=== PATIENT | female | born 1955 | race Caucasian/White ===

== ENCOUNTER 2024-07-22 14:41 | Emergency (ER) | payer MEDICARE, OTHER, SELFPAY ==
[2024-07-22 14:55] VITALS: BP 124/68; PULSE 100; RESP 18; TEMP 36.4; O2SAT 98
--- NOTE | 2024-07-22 15:03 | ED.SKABFB ---
HPI - Skin/Abscess/Foreign Bdy General Chief complaint: Skin/Abscess/Foreign Body Stated complaint: Skin/Abscess/Foreign Body Time Seen by Provider: 07/22/24 14:44 History of Present Illness HPI narrative: This is a 68 year old female patient who presents to [facility] with complaint of worsened rash on bilateral legs that has been more inflamed than usual and now is painful as well. Patient reports significant history of Allergy and immune system problems. 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 patient reports a history of asthma and eczema and states that her eczema rash on her lower extremities is significantly worse than usual. She notes that symptoms have worsened significantly over the past 7-10 days. She called and her primary care provider is out of the office all week. Patient denies history of diabetes. No prior records in our system. She states that when this flares up she needs a course of steroids to improve her symptoms. Usually her leg eczema will be light pink and itch. This time her symptoms on the right leg match her usual symptoms but on the left leg she now has a deep, dark red rash with localized swelling of the rash area only and areas where it wraps around the whole leg circumference. She notes the left leg is painful when she walks and it hurts to touch the skin in this location. She denies any fever or breaks in the skin. She has continued her topical treatments with steroids and other topical medications but left leg keeps getting worse. Patient reports that she had Covid 2.5 weeks ago. Related Data Home Medications ?Medication ?Instructions ?Recorded ?Confirmed ?Last Taken ?Type albuterol sulfate 2.5 mg/3 mL mg 07/22/24 Unknown History (0.083 %) solution for nebulization albuterol sulfate 90 mcg/actuation inhalation 07/22/24 Unknown History aerosol inhaler amlodipine 10 mg tablet mg 07/22/24 Unknown History baclofen 5 mg tablet mg 07/22/24 Unknown History carboxymethylcellulose sodium 1 % 1 drp EACH EYE DAILY 07/22/24 07/22/24 Unknown History eye liquid gel drops cetirizine 10 mg tablet (24Hour 10 mg PO DAILY PRN allergy symptoms 07/22/24 07/22/24 Unknown History Allergy) cholecalciferol (vitamin D3) 25 25 mcg PO DAILY 07/22/24 07/22/24 Unknown History mcg (1,000 unit) capsule clobetasol 0.05 % topical ointment 1 applic topical DAILY 07/22/24 07/22/24 Unknown History diphenhydramine HCl 25 mg capsule 50 mg PO HS 07/22/24 07/22/24 Unknown History (NightTime Sleep Aid (diphenhydramine)) epinephrine 0.3 mg/0.3 mL 07/22/24 Unknown History injection, auto-injector famotidine 20 mg tablet mg 07/22/24 Unknown History fexofenadine 180 mg tablet 180 mg PO DAILY 07/22/24 07/22/24 Unknown History (Magalys Allergy) fluoride (sodium) 1.1 % dental 1 applic dental DAILY 07/22/24 07/22/24 Unknown History paste (PreviDent 5000 Booster Plus) hydroxyzine HCl 25 mg tablet mg 07/22/24 Unknown History ipratropium bromide 21 mcg (0.03 intranasal 07/22/24 Unknown History %) nasal spray levothyroxine 100 mcg tablet mcg 07/22/24 Unknown History magnesium 500 mg tablet 15 mg PO DAILY 07/22/24 07/22/24 Unknown History montelukast 10 mg tablet mg 07/22/24 Unknown History wolarvsg-qvmz-aghh 8 mg-folic 400 1 tablet PO DAILY 07/22/24 07/22/24 Unknown History mcg-K 50 mcg-lutein 300 mcg tablet (Multivitamin Women 50 Plus) olopatadine 0.2 % eye drops 1 drp EACH EYE DAILY 07/22/24 07/22/24 Unknown History (Pataday Once Daily Relief) sertraline 100 mg tablet mg 07/22/24 Unknown History spironolactone 50 mg tablet mg 07/22/24 Unknown History tacrolimus 0.1 % topical ointment topical 07/22/24 Unknown History turmeric 400 mg capsule mg PO 07/22/24 Unknown History white petrolatum-mineral oil 56.8 1 applic EACH EYE DAILY PRN dry 07/22/24 07/22/24 Unknown History %-42.5 % eye ointment (Refresh eyes Lacri-Lube) Allergies Allergy/AdvReac Type Severity Reaction Status Date / Time aspirin Allergy Anaphylaxis Verified 07/22/24 15:10 azithromycin Allergy Anaphylaxis Verified 07/22/24 15:10 banana Allergy Anaphylaxis Verified 07/22/24 15:10 bee venom protein (honey bee) Allergy Anaphylaxis Verified 07/22/24 15:10 cat dander Allergy Anaphylaxis Verified 07/22/24 15:10 cranberry Allergy Anaphylaxis Verified 07/22/24 15:10 dog dander Allergy Anaphylaxis Verified 07/22/24 15:10 egg Allergy Anaphylaxis Verified 07/22/24 15:10 egg yolk Allergy Anaphylaxis Verified 07/22/24 15:10 Influenza Virus Vaccines Allergy Anaphylaxis Verified 07/22/24 15:10 latex Allergy Anaphylaxis Verified 07/22/24 15:10 lidocaine Allergy Anaphylaxis Verified 07/22/24 15:10 macadamia nut oil Allergy Anaphylaxis Verified 07/22/24 15:10 pistachio nut Allergy Anaphylaxis Verified 07/22/24 15:10 pseudoephedrine (From Allergy Anaphylaxis Verified 07/22/24 15:10 Sudafed) silicone Allergy Anaphylaxis Verified 07/22/24 15:10 stevioside (From Stevia) Allergy Anaphylaxis Verified 07/22/24 15:10 sulfamethoxazole (From Allergy Anaphylaxis Verified 07/22/24 15:10 Bactrim) sunflower seed Allergy Anaphylaxis Verified 07/22/24 15:10 trimethoprim (From Bactrim) Allergy Anaphylaxis Verified 07/22/24 15:10 venom-wasp Allergy Anaphylaxis Verified 07/22/24 15:10 Review of Systems Review of Systems: All systems reviewed & are unremarkable except as noted in HPI and below Exam Narrative: GENERAL: Well-appearing, obese, and in no acute distress. HEAD: Normocephalic, atraumatic. erythema of face rash ENT:? Mucous membranes moist. CHEST: Clear to auscultation.? No respiratory distress. Faint rash the top portion of her back HEART: Regular rate and rhythm. ? Normal peripheral pulses. EXTREMITIES: Normal range of motion. faint area of rash right upper arm. Light pink rash to right lower extremity splotchy in nature. This does not feel raised or rough skin to palpation. Left lower extremity with deep red/purple raised tender splotchy rash with bigger areas of confluence including a band of circumferential rash near the ankle. Negative Boob's This rash is non-blanchable (appears like vasculitis rather than eczema) SKIN: Warm dry normal color NEURO: Alert and oriented x3. PSYCH: Normal mood and affect Course Course Emergency Course: Level of Care: Express Care Visit Vital Signs Vital signs: Vital Signs Temperature 36.4 C 07/22/24 14:55 Pulse Rate 100 07/22/24 14:55 Respiratory Rate 18 07/22/24 14:55 Blood Pressure 124/68 07/22/24 14:55 Pulse Oximetry 98 07/22/24 14:55 Oxygen Delivery Room Air 07/22/24 14:55 Temperature 36.4 C 07/22/24 14:55 Pulse Rate 100 07/22/24 14:55 Respiratory Rate 18 07/22/24 14:55 Blood Pressure 124/68 07/22/24 14:55 Pulse Oximetry 98 07/22/24 14:55 Oxygen Delivery Room Air 07/22/24 14:55 MDM - Skin/Abscess/Foreign Bdy MDM Narrative Medical decision making narrative: Patient sought care at walk in clinic today because of a flair of her chronic skin condition that she reports has a diagnosis of eczema. It is flared worse on bilateral lower extremities but much more pronounced and progressed on the left lower leg. Her PCP is out of the office all week and her Medical Record Librarian is trying to get her to see a different Medical Record Librarian instead but they only take regan payments. Her Directory Carrier moved away out of the area. Patient requesting to get started on steroids. She has only had biopsy of her back and was treated for lichen sclerosis with improvement in that condition. She has never had biopsy of these areas of recurring rash on her legs, only been diagnosed as eczema based on recurrence. Today the rash on the left leg appears more consistent with vasculitis that is probably flared up more because of recent bout of Covid and her immune system responding. Either way, treatment will be steroid initiation with IM steroid in office and prescription for prednisone for 1 week. Patient instructed on follow up with PCP/Dermatology and consideration of biopsy if/when rash flares up in the future (but not now since starting steroids.) Differential Diagnosis Differential diagnosis: Likely urticaria, cellulitis, eczema, contact dermatitis and other (Vasculitis) Medical Records Attestation: I reviewed the patient's medical records. Medical records narrative: No records to review Discharge Plan Discharge Clinical Impression: Rash Patient Disposition: Home Condition: Stable Instructions: Antibiotic Form Additional Instructions: We gave you a shot of Decadron (dexamethasone) 10 mg in the office Start prednisone tomorrow for 1 week. If worsening of symptoms go to ER for further evaluation. Follow up with primary care or Dermatology/Allergy provider You may see about getting a biopsy of the left leg rash if it flares back up in the future. Once starting steroids it is not as accurate. You will probably need to do this through Dermatology. ER will not do a biopsy. Patient Language: Citizen Of [place] Prescriptions: New prednisone 20 mg tablet 60 mg PO DAILY 7 Days Qty: 21 0RF No Action albuterol sulfate 2.5 mg /3 mL (0.083 %) solution for nebulization sertraline 100 mg tablet levothyroxine 100 mcg tablet famotidine 20 mg tablet amlodipine 10 mg tablet tacrolimus 0.1 % ointment TOPICAL montelukast 10 mg tablet hydroxyzine HCl 25 mg tablet epinephrine 0.3 mg/0.3 mL auto-injector albuterol sulfate 90 mcg/actuation HFA aerosol inhaler INHALATION ipratropium bromide 21 mcg (0.03 %) spray,non-aerosol INTRANASAL spironolactone 50 mg tablet baclofen 5 mg tablet diphenhydramine HCl [NightTime Sleep Aid (diphen)] 25 mg capsule 50 mg PO HS fexofenadine [Magalys Allergy] 180 mg tablet 180 mg PO DAILY fluoride (sodium) [PreviDent 5000 Booster Plus] 1.1 % paste 1 applic dental DAILY cetirizine [24Hour Allergy] 10 mg tablet 10 mg PO DAILY PRN (Reason: allergy symptoms) olopatadine [Pataday Once Daily Relief] 0.2 % drops 1 drp EACH EYE DAILY carboxymethylcellulose sodium 1 % drops, liquid gel 1 drp EACH EYE DAILY Refresh Lacri-Lube 56.8-42.5 % ointment 1 applic EACH EYE DAILY PRN (Reason: dry eyes) Multivitamin Women 50 Plus 8 mg iron-400 mcg-50 mcg tablet 1 tablet PO DAILY magnesium 500 mg tablet 15 mg PO DAILY turmeric 400 mg capsule PO cholecalciferol (vitamin D3) 25 mcg (1,000 unit) capsule 25 mcg PO DAILY clobetasol 0.05 % ointment 1 applic topical DAILY Follow-up/Referrals: Bj,Rosaura Solomon MD [Primary Care Provider] - Time of Disposition: 15:35
--- OUTSIDE RECORDS SUMMARY | 2024-07-22 15:22 | XMS_ITS | Clinical Summary ---
Author Organization [address] Address [address] [place] [id number] Care Team Providers Care Bulwark Carpenter Name Role Phone Rosaura Lorenzo MD Primary Care Provider [phone] Allergies Active Allergy Reactions Criticality Noted Date Comments Aspirin Unknown 12/04/2023 Azithromycin Unknown 12/04/2023 Sulfamethoxazole-Trimethoprim Unknown 2023 Banana Unknown 12/04/2023 Cat Dander Unknown 12/04/2023 Cranberry+ Unknown 12/04/2023 Dog Dander Unknown 12/04/2023 Egg Unknown 12/04/2023 Influenza A (H1n1) Vac 2008 Unknown 12/04/19 24 Latex Unknown 12/04/2023 Lidocaine Unknown 12/04/2023 Macadamia Nut Oil Unknown 12/04/2023 Procaine Unknown 12/04/2023 Pistachio Nut Unknown 12/04/2023 Silicone Unknown 12/04/2023 Stevioside (Bulk) Unknown 12/04/2023 Pseudoephedrine Unknown 12/04/2023 [place] Seed Unknown 12/04/2023 Venom-Honey Bee Unknown 12/04/2023 Venom-Wasp Unknown 12/04/2023 Medications fluoride, sodium, (PreviDent 5000 Plus) 1.1 % cream APPLY 1-2 TIMES DAILY TOOTHPASTE Active hypromellose (NATURES TEARS) drops Active famotidine (PEPCID) 20 mg tablet TAKE 2 TABLETS BY MOUTH EVERY DAY NEEDED 2 Active levothyroxine (SYNTHROID) 100 mcg tablet Take 1 tablet every day by oral route. 9 Active albuterol HFA (PROVENTIL HFA,VENTOLIN HFA,PROAIR HFA) 90 mcg/actuation inhaler Inhale 2 puffs every 4 (four) hours 2 Active EPINEPHrine 0.3 mg/0.3 mL auto-injection syringe INJECT 1 PEN IN THE MUSCLE ONE TIME NEEDED Active spironolactone (ALDACTONE) 50 mg tablet Take 1 tablet (50 mg total) by mouth 2 (two) times a day Active ipratropium (ATROVENT) 21 mcg (0.03 %) nasal spray [place] 2 sprays twice a day by intranasal route. 2 Active white petrolatum-mine ral oil (Refresh P.M.) ointment at bedtime Active amLODIPine (NORVASC) 10 mg tablet Take 1 tablet (10 mg total) by mouth daily 9 Active baclofen (LIORESAL) 5 mg tablet Take 1 tablet (5 mg total) by mouth 3 (three) times a day as needed 4 Active cetirizine (ZyrTEC) 10 mg tablet 1 tablet (10 mg total) Active clobetasoL (TEMOVATE) 0.05 % ointment APPLY TOPICALLY TO RASH TWICE DAILY 9 Active diphenhydrAMINE 25 mg capsule Take 2 tablet/capsule (50 mg total) by mouth daily Active fexofenadine (TK) 180 mg tablet Take 1 tablet (180 mg total) by mouth daily 6 Active hydrOXYzine (ATARAX) 25 mg tablet Take by mouth 4 (four) times a day as needed 4 Active montelukast (SINGULAIR) 10 mg tablet Take 1 tablet (10 mg total) by mouth every evening Active olopatadine (Pataday Once Daily Relief) 0.7 % ophthalmic solution INSTILL 1 DROP INTO AFFECTED EYE(S) BY OPHTHALMIC ROUTE twice DAILY Active sertraline (ZOLOFT) 100 mg tablet Take 1.5 tablets (150 mg total) by mouth daily Active tacrolimus (PROTOPIC) 0.1 % ointment APPLY TO RASH ON BODY TWICE DAILY 9 Active Active Problems Problem Noted Date Diagnosed Date Cyst on ear 12/02/2023 Surgical History Surgery Date Site/Laterality Comments DILATION AND CURETTAGE OF UTERUS x2 OTHER SURGICAL HISTORY Laproscopic exploratory surgery Medical History Medical History Date Comments Angioedema Arthritis Dry eyes Eczema GERD (gastroesophageal reflux disease) TMJ dysfunction Hypertension Osteopenia Hiatal hernia Lichen sclerosus Gustatory rhinitis Spinal stenosis Lactose intolerance Kidney failure Bruxism Sleep apnea Family History Medical History Relation Name Comments Cancer Other Relation Name Status Comments Other Social History Tobacco Use Types Packs/Day Years Used Date Smoking Tobacco: Never Smokeless Tobacco: Never Tobacco Cessation:Counseling Given: Not Answered Comments Unknown Sex and Gender Information Value Date Recorded Sex Assigned at Not on file Legal Sex Female 7:00 PM [employer] Gender Identity Not on file Sexual Orientation Not on file Obstetrics History Last Filed Vital Signs Vital Sign Reading Time Taken Comments Blood Pressure 130/85 03/01/2019 10:36 AM [employer] Pulse 82 03/01/2019 10:36 AM [employer] Temperature 36.3 C (97.4 F) 03/01/2019 10:36 AM [employer] Respiratory Rate 18 12/04/2023 8:52 AM CDT Oxygen Saturation 95% 03/01/2019 10:36 AM [employer] Inhaled Oxygen Concentration - - Weight 108.9 kg (240 lb) 12/04/2023 8:52 AM CDT Height 166.4 cm (5' 5.5 ) 12/04/2023 8:52 AM CDT Body Mass Index 39.33 12/04/2023 8:52 AM CDT Plan of Treatment Health Maintenance Due Date Last Done Comments Colon Cancer Screening-Colonoscopy 1955 Depression Screening 1956 Fall Risk Assessment 1955 Hepatitis C Screening 1955 Hepatitis B Screening 1974 Well Visit 65+ 2021 Covid-19 Vaccine (4 - 2023-2 5 season) 2023 07/17/2021, 02/08/2021, 01/11/2021 Influenza Vaccine (#1) 2023 Osteoporosis Screening-Bone Density Scan 10/21/2024 10/21/2022 Breast Cancer Screening-Mammogram 10/23/2024 10/24/2023, 10/24/2023, 10/21/2022, Additional history exists DTaP/Tdap/Td Vaccine (4 - Td or Tdap) 04/21/2030 04/21/2020, 01/11/2010, 01/11/2010 Pneumococcal vaccine 65+ Completed 023, 07/10/2017, 12/27/2011 Zoster Vaccine Completed 12/28/2022, 10/29/2022 Procedures Procedure Name Priority Date/Time Associated Diagnosis Comments SCREENING MAMMOGRAM BILATERAL W MORALES Routine 03/01/2016 12:34 PM [employer] from Last 3 Months or Most Recently Relevant to Health Maintenance Results * Screening Mammogram Bilateral W Morales (03/01/2016 12:34 PM [employer]) Anatomical Region Laterality Modality Breast Bilateral Mammography 03/01/2016 12:3 4 PM [employer] Impressions 03/05/2016 8:40 AM [employer] BI-RAD 2 BENIGN There is no mammographic evidence of malignancy. A 1 year screening mammogram is recommended. The patient has been or will be contacted. The patient will be entered into a reminder system with a target due date of 1 year for her next screening exam. Electronically signed by: Live [email or web address]/[email or web address]:03/05/2016 08:40:07 Wash Test Checker: Danna PACE (R)(M), [facility] letter sent: Normal Exam Reading location: BI-RADS: 2 Benign [EOD] Narrative 03/05/2016 8:40 AM [employer] - MG BILATERAL DIGITAL SCREENING MAMMOGRAM 3D/2D WITH CAD WITH MEDIOLATERAL OBLIQUE CRANIOCAUDAL: 03/01/2016 The study was acquired using full field digital technology and interpreted from soft copy. Current study was also evaluated with R2 CAD. 2D digital mammographic views, as well as 3D digital tomosynthesis were performed in the CC and MLO projections. CLINICAL: Routine mammogram. Denies any problems today. No personal history of breast cancer. No family history of breast cancer. COMPARISONS: Comparison is made to exams dated: 01/05/2014 mammogram, 09/22/2013 mammogram, 07/03/2012 mammogram, and 09/16/2013 mammogram - [facility]. BREAST TISSUE: There are scattered areas of fibroglandular density. FINDINGS: There are benign vascular calcifications in both breasts. No significant masses, calcifications, or other findings are seen in either breast. There has been no significant interval change. Procedure Note Provider, MD Blessing - 08/07/2020 - MG BILATERAL DIGITAL SCREENING MAMMOGRAM 3D/2D WITH CAD WITH MEDIOLATERALOBLIQUE CRANIOCAUDAL: 03/01/2016 The study was acquired using full field digital technology and interpretedfrom soft copy. Current study was also evaluated with R2 CAD. 2D digital mammographic views, as well as 3D digital tomosynthesis were performed in the CC and MLO projections. CLINICAL: Routine mammogram. Denies any problems today. No personalhistory of breast cancer. No family history of breast cancer. COMPARISONS: Comparison is made to exams dated: 01/05/2014 mammogram,09/22/2013 mammogram, 07/03/2012 mammogram, and [facility] BREAST TISSUE: There are scattered areas of fibroglandular density. FINDINGS: There are benign vascular calcifications in both breasts. No significant masses, calcifications, or other findings are seen ineither breast. There has been no significant interval change. IMPRESSION: BI-RAD 2 BENIGN There is no mammographic evidence of malignancy. A 1 year screeningmammogram is recommended. The patient has been or will be contacted. The patient will be entered into a reminder system with a target due dateof 1 year for her next screening exam. Electronically signed by: Live [email or web address]/rubio:03/05/2016 08:40:07 Wash Test Checker: Danna PACE (R)(M), [facility] letter sent: Normal Exam Reading location: BI-RADS: 2 Benign [EOD] us Rosaura Lorenzo MD IMG MAMMO PROCEDURES Final Resul t from Last 3 Months or Most Recently Relevant to Health Maintenance Insurance [address] [place] [address] MEDICARE FOR LIFE Care Teams Bulwark Carpenter Relationship Specialty Start Date End Date Rosaura Lorenzo MD [address] [place] [address] PCP - General 12/07/18
--- OUTSIDE RECORDS SUMMARY | 2024-07-22 15:22 | XMS_ITS | Clinical Summary ---
Author Organization [facility] Address [facility] [place] [address] Care Team Providers Care Craniologist Name Role Phone Rosaura Tim MD Primary Care Provider [phone] Allergies Active Allergy Reactions Criticality Noted Date Comments Aspirin Hives Medium 01/18/2019 Azithromycin Swelling 01/18/2019 Banana Angioedema 04/11/2020 Bee Venom Unknown 11/27/2011 Isotretinoin Eyes Water & Itch 04/11/2020 Cranberry Extract Anaphylaxis High 10/17/2023 Dander Unknown 04/11/2020 Cat dander Dog Dander Unknown 12/04/2023 Dog Epithelium (Canis Lupus Familiaris) Unknown 10/17/2023 Egg Solids, Whole Unknown 12/04/2023 Eggs Anaphylaxis High 01/18/2019 Received name: Egg Dimethicone Unknown 04/11/2020 Vinyl gloves (per submitted paperwork) Honey Bee Venom Unknown Medium 04/11/2020 Influenza Vaccines Vomiting 01/18/2019 Latex Vomiting 01/18/2019 Lemon Flavoring Agent (Non-Screening) Itching 04/11/2020 Throat itching, swelling Lemon Oil Unknown 10/17/2023 Lidocaine Anaphylaxis High 01/18/2019 Macadamia Nut Oil Unknown 10/17/2023 Macadamia Nuts Hives,GI Upset 08/21/2023 Molds & Smuts Hives 04/11/2020 Mycobacterium Unknown 04/11/2020 Mycobacterium Tuberculosis (Tuberculin PPD) Procaine Vomiting 01/18/2019 Oxybutynin Other (see comment) 10/17/2023 Pistachio Nut Extract Unknown 10/17/2023 Pistachio Nuts Hives 08/21/2023 Omeprazole Unknown 04/11/2020 Ropinirole Other (see comment) 10/17/2023 Sulfamethoxazole-Trimet hoprim Unknown 04/11/2020 Shellfish-Derived Products Unknown 04/11/2020 Form submitted lists seafood Silicone Swelling 08/21/2023 Stevioside Unknown 10/17/2023 Pseudoephedrine Vomiting 04/11/2020 Moody Oil Hives 04/11/2020 Tuberculin, Ppd Unknown 10/17/2023 Wasp Venom Unknown 04/11/2020 Wasp Venom Protein Unknown 10/17/2023 Medications * This document contains information received from the source organization and may not represent a complete record from that organization. albuterol sulfate HFA 108 (90 Base) MCG/ACT inhaler INHALE 2 PUFFS BY MOUTH EVERY 4 HOURS 2 Active amLODIPine (NORVASC) 10 MG tablet Take 1 tablet (10 mg total) by mouth daily. 2 Active clobetasol (TEMOVATE) 0.05 % ointment APPLY TOPICALLY TO RASH TWICE DAILY 2 Active famotidine (PEPCID) 20 MG tablet TAKE 2 TABLETS BY MOUTH EVERY DAY NEEDED 2 Active ipratropium (ATROVENT) 0.03 % nasal spray 2 sprays 2 (two) times daily. 2 Active levothyroxine (SYNTHROID) 100 MCG tablet Take 1 tablet (100 mcg total) by mouth daily. 2 Active montelukast (SINGULAIR) 10 MG tablet Take 1 tablet (10 mg total) by mouth every evening. 2 Active ondansetron (ZOFRAN-ODT) 4 MG disintegrating tablet Take 1 tablet (4 mg total) by mouth every 8 (eight) hours as needed for Nausea. 10 tablet 2 Active chlorhexidine (PERIDEX) 0.12 % solution Use as directed 15 mLs in the mouth or throat 2 (two) times daily. Active EPINEPHrine 0.3 MG/0.3ML injection Inject 0.3 mLs (0.3 mg total) into the muscle as needed for Anaphylaxis. Active diphenhydrAMINE (BENADRYL) 25 MG capsule Take 2 capsules (50 mg total) by mouth nightly at bedtime. Active fexofenadine (TK) 180 MG tablet Take 1 tablet (180 mg total) by mouth daily. Active HYDROcodone-acetam inophen (NORCO) 5-325 MG tabletIndications: Acute Pain < 3 Day Supply Take 1 tablet by mouth every 6 (six) hours as needed for Pain. Indications: Acute Pain < 3 Day Supply 10 tablet 3 Active baclofen (LIORESAL) 5 MG tablet Take 1 tablet (5 mg total) by mouth 3 (three) times daily as needed. 4 Active cetirizine (ZYRTEC ALLERGY) 10 MG tablet Take 1 tablet every day by oral route in the morning. Active Docusate Sodium (DSS) 100 MG Cap TAKE 1 CAPSULE BY MOUTH THREE TIMES DAILY NEEDED Active hydrOXYzine (ATARAX) 25 MG tablet Take 1 tablet(s) 4 times a day by oral route as needed. 4 Active melatonin 10 MG tablet Take 1 tablet every day by oral route at bedtime. Active olopatadine (PATADAY) 0.7 % ophthalmic solution INSTILL 1 DROP INTO AFFECTED EYE(S) BY OPHTHALMIC ROUTE twice DAILY Active oxybutynin XL (DITROPAN-XL) 10 MG 24 hr tablet Take 1 tablet (10 mg total) by mouth nightly at bedtime. 3 Active potassium chloride CR (KLOR-CON M) 10 MEQ tablet Take 1 tablet (10 mEq total) by mouth daily. Active semaglutide-weight management (WEGOVY) 2.4 mg/dose injection (PEN) 0.25 mg. Active sertraline (ZOLOFT) 50 MG tablet Take 1 tablet (50 mg total) by mouth daily. Active SODIUM FLUORIDE, DENTAL GEL, (PREVIDENT) 1.1 % Gel PreviDent 5000 Plus 1.1 % cream APPLY 1-2 TIMES DAILY TOOTHPASTE Active spironolactone (ALDACTONE) 50 MG tablet Take 1 tablet (50 mg total) by mouth 2 (two) times daily. Active tacrolimus (PROTOPIC) 0.1 % ointment APPLY TO RASH ON BODY TWICE DAILY Active dextran 70-hypromellose (ARTIFICIAL TEARS) 0.1-0.3 % ophthalmic solution Active hydrocortisone 2.5 % cream APPLY THIN LAYER TOPICALLY TO THE AFFECTED AREA TWICE DAILY Active artificial tears (REFRESH P.M.) 83-15 % ophthalmic ointment nightly at bedtime. Active Active Problems Problem Noted Date Diagnosed Date Cyst on ear 12/02/2023 Swelling of limb 11/27/2023 Allergic reaction to food 10/17/2023 Obstructive sleep apnea of adult 10/15/2022 History of severe acute resp iratory syndrome coronavirus 2 (SARS-CoV-2) disease 03/21/2022 Pes anserinus bursitis of both knees 01/12/2022 Assessment & Plan (01/12/2022 8:16 PM CDT): We discussed the risks, benefits and alternatives. Patient would like to just do some exercises at first to see if that would get any better. She has tried some ice packs and exercise bike. Begin meloxicam 7.5 mg once daily Bilateral primary osteoarthritis of knee 022 Assessment & Plan (01/12/2022 8:17 PM CDT): We discussed the risks, benefits and alternatives. The only thing proven to slow the progression of osteoarthritis is weight loss. Every pound lost relieves 4 to 6 pounds of stress across the knee. We discussed unloading braces. Formal physical therapy to help with flexibility, mobility and strength. We discussed TENS units. Nonsteroidal anti-inflammatories as well as Tylenol and pain medication and their side effects. We discussed steroid versus Visco supplement injection. We discussed eventual total knee arthroplasty. Although, on x-ray arthritis is mild. Begin meloxicam 7.5 mg once daily. BMI 36.0-36.9,adult 01/12/2022 Assessment & Plan (01/12/2022 8:17 PM CDT): We discussed the adverse effects of weight on osteoarthritis of the knee. For every 1 pound loss, 4 to 6 pounds of stress is relieved from the knee. Underimmunization status 02/28/2020 Prediabetes 04/08/2018 Insomnia 03/18/2016 Disorder of teeth and supporting structures 10/23 Overview (10/17/2023): Location: None;Severity: Moderate;Progress: Stable;Added By: Rosaura Tim;Add to Current Problems: YES Location: None;Severity: Moderate;Progress: Stable;Added By: Rosaura Tim;Add to Current Problems: YES Edema of eyelid 11/13/2015 Overview (10/17/2023): Location: None;Severity: Moderate;Progress: Stable;Added By: Kaylyn Amin;Add to Current Problems: NO Angioedema 09/07/2015 Overview (10/17/2023): Location: None;Severity: Moderate;Progress: Stable;Added By: Rosaura Tim;Add to Current Problems: YES Atopic dermatitis 09/07/2015 Overview (10/17/2023): Location: None;Severity: Moderate;Progress: Stable;Added By: Rosaura Tim;Add to Current Problems: YES Pityriasis versicolor 09/07/2015 Overview (10/17/2023): Location: None;Severity: Moderate;Progress: Stable;Added By: Rosaura Tim;Add to Current Problems: YES Postmenopausal bleeding 03/01/2014 Overview (10/17/2023): Location: None;Severity: Moderate;Progress: Stable;Added By: Rosaura Tim;Add to Current Problems: YES Diaphragmatic hernia 02/09/2014 Overview (10/17/2023): Location: None;Severity: Moderate;Progress: Stable;Added By: Shannon Webster;Add to Current Problems: NO Acute bronchitis 01/06/2014 Overview (10/17/2023): Location: None;Severity: Moderate;Progress: Stable;Added By: Any Bautista;Add to Current Problems: YES Acne 12/31/2012 Overview (10/17/2023): Location: None;Severity: Moderate;Progress: Stable;Added By: Rosaura Tim;Add to Current Problems: NO Methicillin resistant Staphylococcus aureus infe ction 10/22/2012 Overview (10/17/2023): Location: None;Severity: Moderate;Progress: Stable;Added By: Sulema Ruiz;Add to Current Problems: NO Nonvenomous insect bite of multiple sites 2012 Overview (10/17/2023): Location: None;Severity: Moderate;Progress: Stable;Added By: Danna Dia;Add to Current Problems: NO Abdominal pain 09/22/2012 Overview (10/17/2023): Location: None;Severity: Moderate;Progress: Stable;Added By: Sulema Ruiz;Add to Current Problems: NO Abscess of vulva 09/22/2012 Overview (10/17/2023): Location: None;Severity: Moderate;Progress: Stable;Added By: Shannon Webster;Add to Current Problems: NO Impacted cerumen 09/22/2012 Overview (10/17/2023): Location: None;Severity: Moderate;Progress: Stable;Added By: Sulema Ruiz;Add to Current Problems: NO Subjective tinnitus 09/22/2012 Overview (10/17/2023): Location: None;Severity: Moderate;Progress: Stable;Added By: Sulema Ruiz;Add to Current Problems: NO Epidermoid cyst of skin 09/15/2012 Overview (10/17/2023): Location: None;Severity: Moderate;Progress: Stable;Added By: Rosaura Tim;Add to Current Problems: NO Localized scleroderma 09/15/2012 Overview (10/17/2023): Location: None;Severity: Moderate;Progress: Stable;Added By: Rosaura Tim;Add to Current Problems: NO Anxiety state 06/25/2012 Overview (10/17/2023): Location: None;Severity: Moderate;Progress: Stable;Added By: Rosaura Tim;Add to Current Problems: NO Atrophic vaginitis 06/25/2012 Overview (10/17/2023): Location: None;Severity: Moderate;Progress: Stable;Added By: Any Bautista;Add to Current Problems: NO General symptom 01/26/2012 Overview (10/17/2023): Location: None;Severity: Moderate;Progress: Stable;Added By: Any Bautista;Add to Current Problems: NO Location: None;Severity: Moderate;Progress: Stable;Added By: Any Bautista;Add to Current Problems: NO Allergic rhinitis due to pollen 11/27/2011 Overview (10/17/2023): Location: None;Severity: Moderate;Progress: Stable;Added By: Anne Del Angel;Add to Current Problems: NO Location: None;Severity: Moderate;Progress: Stable;Added By: Rosaura Tim;Add to Current Problems: YES Location: None;Severity: Moderate;Progress: Stable;Added By: Rosaura Tim;Add to Current Problems: YES Location: None;Severity: Moderate;Progress: Stable;Added By: Anne Del Angel;Add to Current Problems: NO Asthma ([facility]) 10/17/2011 Overview (10/17/2023): Location: None;Severity: Moderate;Progress: Stable;Added By: Rosaura Tim;Add to Current Problems: YES Benign essential hypertension 10/17/2011 Overview (10/17/2023): Location: None;Severity: Moderate;Progress: Stable;Added By: Any Bautista;Add to Current Problems: YES Location: None;Severity: Moderate;Progress: Stable;Added By: Any Bautista;Add to Current Problems: YES Gastroesophageal reflux disease without esophagi tis 10/17/2011 Overview (10/17/2023): Location: None;Severity: Moderate;Progress: Stable;Added By: Rosaura Tim;Add to Current Problems: NO Hypothyroidism 10/17/2011 Overview (10/17/2023): Location: None;Severity: Moderate;Progress: Stable;Added By: Any Bautista;Add to Current Problems: YES Urge incontinence of urine 10/17/2011 Overview (10/17/2023): Location: None;Severity: Moderate;Progress: Stable;Added By: Rosaura Tim;Add to Current Problems: NO Resolved Problems Problem Noted Date Diagnosed Date Resolved Date Encounter for screening for malignant neoplasm of colon 09/15/2014 10/20/2023 Encounters Date Type Department Care Team Description 06/07/2024 9:10 AM CDT - 06/07/2024 11:59 PM CDT Hospital Encounter [facility] [address] [place] [address] Rosaura Tim MD Discharge Disposition: Home or Self Care (Routine Discharge) 06/07/2024 Travel from Last 3 Months Immunizations Immunization Administration Dates Next Due Pneumococcal (Pneumovax 23) 12/27/2011 Pneumococcal (Prevnar 13) 07/10/2017 Pneumococcal (Prevnar 20) 10/29/2022 RSV VACCINE, UNSPECIFIED 01/25/2023 Shingrix 10/29/2022 Td (TDVAX) 01/11/2010 Tdap (Adacel) 04/21/2020 Tdap (Generic) 01/11/2010 Family History Medical History Relation Comments Alcohol Abuse Father Arthritis Father Asthma Father Cancer Father Early Father Hyperlipidemia Father Hypertension Father Vision loss Maternal Aunt Vision loss Maternal Grandmother Early Mother Heart Disease Mother Stroke Mother Breast Cancer Other Defects Sister Relation Status Comments Father Maternal Aunt Maternal Grandmother Mother Other Sister Social History Tobacco Use Types Packs/Day Years Used Date Smoking Tobacco: Former Cigarettes Q uit: 03/24/1977 Smokeless Tobacco: Never Tobacco Cessation:Counseling Given: Not Answered Alcohol Use Standard Drinks/Week Comments Never 0 (1 standard drink = 0.6 oz pur e alcohol) Comments No Sex and Gender Information Value Date Recorded Sex Assigned at Not on file Legal Sex Female 5:29 PM CDT Gender Identity Not on file Sexual Orientation Not on file Last Filed Vital Signs Vital Sign Reading Time Taken Comments Blood Pressure 140/72 01/28/2024 10:00 AM [employer] Pulse 74 01/28/2024 10:00 AM [employer] Temperature 36.1 C (97 F) 08/21/2023 1:17 PM CDT Respiratory Rate 18 08/21/2023 1:17 PM CDT Oxygen Saturation 98% 08/21/2023 1:17 PM CDT Inhaled Oxygen Concentration - - Weight 109.3 kg (241 lb) 01/28/2024 10:00 AM [employer] Height 165.1 cm (5' 5 ) 01/28/2024 10:00 AM [employer] Body Mass Index 40.1 01/28/2024 10:00 AM [employer] Plan of Treatment Upcoming Encounters Date Type Department Care Team (Late st Contact Info) Description 08/27/2024 1:30 PM CDT Office Visit [facility] [address] [place] [phone] Reed Allen MD [address] [id number] 01/26/2025 9:00 AM [employer] Office Visit [facility] [address] [place] [phone] Jose Norton MD [address] [id number] Health Maintenance Due Date Last Done Comments Colorectal Cancer Screening Colonoscopy (10 Years) 1955 Hepatitis C 1974 Annual Medicare Wellness Visit 2021 Zoster Vaccines (2 of 2) 12/24/2022 10/29/2022 COVID-19 Vaccine ( season) 2023 07/17/2021, 02/08/2021, 01/11/2021 Mammogram Screening 10/23/2025 10/24/2023, 10/21/2022, 10/19/2021, Additional history exists DTaP, Tdap and Td Vaccines (4 - Td or Tdap) 04/21/2030 04/21/2020, 01/11/2010, 01/11/2010 Dexa Scan (General) Completed 10/21/2022, 08/06/2022, 10/22/2017, Additional history exists Pneumococcal Vaccine: 50+ Years Completed 10/29/2022, 07/10/2017, 12/27/2011 RSV Immunization or 60+ Years Completed 01/25/2023 Meningococcal B Vaccine Aged Out No l onger eligible based on patient's age to complete this topic Meningococcal Vaccine Aged Out No rafaela garrett eligible based on patient's age to complete this topic RSV Immunizations Under 20 Months Aged Out No longer eligible based on patient's age to complete this topic Procedures Procedure Name Priority Date/Time Associated Diagnosis Comments CBC W/DIFF AUTOMATED Routine 06/07/2024 9:23 AM CDT Pre-diabetes BASIC METABOLIC PANEL Routine 06/07/2024 9:23 AM CDT Pre-diabetes MG SCREENING W SILVIA MANUELA DIGI Routine 10/24/2023 10:39 AM CDT Visit for screening mammogram BONE DENSITY/DEXA Routine 10/21/2022 1:2 3 PM CDT Postmenopausal state from Last 3 Months or Most Recently Relevant to Health Maintenance Results * (ABNORMAL) BASIC METABOLIC PANEL (06/07/2024 9:23 AM CDT) GLUCOSE 117(H) 70 - 99 MG/DL 06/07/2024 10:13 AM CDT [facility] BUN 23(H) 7 - 18 MG/DL 06/07/2024 10:13 AM CDT [facility] CREATININE S/P/B 0.97 0.55 - 1.02 MG/DL 06/07/2024 10:13 AM CDT [facility] SODIUM S/P/B 138 136 - 145 MMOL/L 06/07/2024 10:13 AM T [facility] POTASSIUM S/P/B 4.2 3.5 - 5.1 MMOL/L 06/07/2024 10:13 AM T [facility] CHLORIDE S/P/B 102 100 - 108 MMOL/L 06/07/2024 10:13 AM CDT [facility] CO2 28.6 21 - 32 MMOL/L 06/07/2024 10:13 AM T [facility] CALCIUM S/P/B 9.6 8.5 - 10.1 MG/DL 06/07/2024 10:13 AM T [facility] ANION GAP 7.4 5 - 15 MMOL/L 06/07/2024 10:13 AM T [facility] BUN CREATININE RATIO 23.7 6 - 26 06/07/2024 10:13 AM T [facility] GFR ESTIMATE 64(L) >90 ML/MIN/1.7 3 M2 06/07/2024 10:13 AM T [facility] Comment: NOTE: eGFR is not calculated for patients <18 years of age. This is an estimated GFR calculation using the new CKD EPI creatinine equation without race and so does not require a correction factor for race. This estimated GFR should not be used for calculating drug doses. 06/07/2024 9:23 AM CDT us Rosaura Tim MD LABORATORY Final Result [facility] [address] [place] [address], [place] [phone] * (ABNORMAL) CBC W/DIFF AUTOMATED (06/07/2024 9:23 AM CDT) WBC 5.42 4.4 - 11.0 x10'3/uL 06/07/2024 10:04 AM CDT [facility] RBC 5.03 4.50 - 5.10 x10'6/uL 06/07/2024 10:04 AM CDT [facility] HGB 14.2 12.3 - 15.3 G/DL 06/07/2024 10:04 AM CDT [facility] HCT 44.4 35.9 - 44.6 % 06/07/2024 10:04 AM CDT [facility] MCV 88.3 80.0 - 96.0 FL 06/07/2024 10:04 AM CDT [facility] MCH 28.2 25.3 - 30.9 PG 06/07/2024 10:04 AM CDT [facility] MCHC 32.0 31.0 - 34.1 G/DL 06/07/2024 10:04 AM T [facility] RDW 15.7(H) 12.4 - 15.1 % 06/07/2024 10:04 AM T [facility] PLT 280 151 - 353 x10'3/uL 06/07/2024 10:04 AM T [facility] MPV 9.2(L) 9.6 - 12.0 FL 06/07/2024 10:04 AM CDT [facility] RBC MORPHOLOGY NORMAL 06/07/2024 10:04 AM CDT [facility] PLT MORPH. NORMAL 06/07/2024 10:04 AM T [facility] WBC MORPHOLOGY NORMAL 06/07/2024 10:04 AM CDT [facility] LYMPHOCYTES % 28.8 15.8 - 45.0 % 06/07/2024 10:04 AM CDT [facility] NEUTROPHILS % 53.1 42.1 - 71.9 % 06/07/2024 10:04 AM CDT [facility] MONOCYTES % 13.1(H) 5.7 - 12.5 % 06/07/2024 10:04 AM CDT [facility] EOSINOPHILS 3.5 0.0 - 5.6 % 06/07/2024 10:04 AM CDT [facility] BASOPHILS 1.1 0.0 - 1.3 % 06/07/2024 10:04 AM CDT [facility] ABS. NEUTROPHILS 2.88 1.40 - 6.00 x10'3/uL 06/07/2024 10:04 AM CDT [facility] IMMATURE GRANS % 0.4 0.0 - 0.5 % 06/07/2024 10:04 AM CDT [facility] ABS. LYMPHOCYTES 1.56 0.80 - 4.70 x10'3/uL 06/07/2024 10:04 AM CDT [facility] 06/07/2024 9:23 AM CDT Rosaura Tim MD LABORATORY Final Result Performing Organization Address City/State/[facility] de Phone Number [facility] [address] [place] [address], * MG SCREENING W SILVIA MANUELA DIGI (10/24/2023 10:39 AM CDT) Anatomical Region Laterality Modality Breast Bilateral Mammography 10/24/2023 3:07 PM CDT Impressions 10/24/2023 3:07 PM CDT =====IMPRESSION:===== No mammographic findings suggestive of malignancy ASSESSMENT: ACR BI-RADS 2 - BENIGN FINDING(S) Recommendation: 1: Routine Screening Bilateral COMMENTS: Ordered By: ROSAURA TIM Interpreted By: Chris Barraza MD, 10/24/2023 3:07 PM Narrative 10/24/2023 3:07 PM CDT EXAMINATION: Digital bilateral screening mammogram with 3-D tomosynthesis EXAM DATE/TIME: 10/24/2023 10:25 AM REASON FOR EXAM: annual Screening COMPARISON: Priors including September 2022, September 2021, September 2020. TECHNIQUE: Digital screening mammography of both breasts was performed in addition to 3-D Tomosynthesis technique. This study was read with the assistance of a computer-aided detection system. TISSUE DENSITY: There are scattered areas of fibroglandular density. FINDINGS: No suspicious masses, malignant appearing calcifications, skin thickening or other abnormalities are present. No significant change from the prior exam. Rosaura Tim MD MAMMO Final Result * BONE DENSITY/DEXA (10/21/2022 1:23 PM CDT) Anatomical Region Laterality Modality Bone Bone Density 10/22/2022 6:29 AM CDT Impressions 10/22/2022 6:30 AM CDT IMPRESSION: WHO Classification: osteopenia. Fracture risk: Increased Ordered By: ROSAURA TIM Interpreted By: Mango Oropeza MD, 10/22/2022 6:29 AM Narrative 10/22/2022 6:30 AM CDT Examination: Bone Density Axial Exam Date/Time: 10/21/2022 12:32 PM Reason For Exam: postmenopausal state Postmenopausal state Comparison: None Findings: DEXA bone densitometry The bone mineral density (BMD) was determined by dual-energy x-ray absorptiometry, the results are as follows: AP Lumbar Spine L1 through L4 BMD Patient (GM/SQCM): 0.930 T-Score (Standard deviations from young adult peak bone density): -1.1 Left femoral neck: BMD Patient (GM/SQCM): 0.696 T-Score (Standard deviations from young adult peak bone density): -1.4 Total right femur: BMD Patient (GM/SQCM): 0.901 T-Score (Standard deviations from young adult peak bone density): -0.3 Procedure Note Mango Oropeza MD - 10/22/2022 Examination: Bone Density Axial Exam Date/Time: 10/21/2022 12:32 PM Reason For Exam: postmenopausal state Postmenopausal state Comparison: None Findings: DEXA bone densitometry The bone mineral density (BMD) was determined bydual-energy x-ray absorptiometry, the results are as follows: AP Lumbar Spine L1 through L4 BMD Patient (GM/SQCM): 0.930 T-Score (Standard deviations from young adult peak bonedensity): -1.1 Left femoral neck: BMD Patient (GM/SQCM): 0.696 T-Score (Standard deviations from young adult peak bonedensity): -1.4 Total right femur: BMD Patient (GM/SQCM): 0.901 T-Score (Standard deviations from young adult peak bonedensity): -0.3 IMPRESSION: WHO Classification: osteopenia. Fracture risk: Increased Ordered By: ROSAURA TIM Interpreted By: Mango Oropeza MD, 10/22/2022 6:29 AM Rosaura Tim MD DEXA Final Result from Last 3 Months or Most Recently Relevant to Health Maintenance Insurance MEDICARE [facility] Care Teams Craniologist Relationship Specialty Start Date End Date Rsoaura Tim MD [address] [phone] PCP - General FAMILY PRACTICE 04/26/19
--- OUTSIDE RECORDS SUMMARY | 2024-07-22 15:22 | XMS_ITS | Encounter Summary ---
Author Organization [facility] Address [address] [place] [address] Care Team Providers Care Carpet Layer Helper Name Role Phone Rosaura Lorenzo MD Primary Care Provider [phone] Encounter Details Date Type Department Care Team (Late Contact Info) Description 02/28/2020 Therapy Plan [facility] [address] [place], [place] [id number] Rosaura Lorenzo MD [address] [facility] [address] [place] [address] Social History Tobacco Use Types Packs/Day Years Used Date Smoking Tobacco: Never Assessed Comments Unknown Sex and Gender Information Value Date Recorded Sex Assigned at Not on file Legal Sex Female 5:29 PM CDT Gender Identity Not on file Sexual Orientation Not on file documented as of this encounter Plan of Treatment Upcoming Encounters Date Type Department Care Team (Late Contact Info) Description 08/27/2024 1:30 PM CDT Office Visit [facility] [address] [place] [phone] Reed Allen MD [facility]. 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 [facility] [address] [place] [address] Jose Norton MD [facility] [address] [place] [address] documented as of this encounter Visit Diagnoses Not on filedocumented in this encounter Additional Health Concerns Infection Onset Date Last Indicated Resolved Time COVID-19 Rule Out 03/22/2022 03/22/2022 03/22/2022 9:27 AM SLATE WORKER COVID-19 Confirmed 03/22/2022 03/22/2022 12:32 AM SLATE WORKER documented as of this encounter Care Teams Carpet Layer Helper Relationship Specialty Start Date End Date Rosaura Lorenzo MD [address] [facility] [address] [place] [phone] PCP - General FAMILY PRACTICE 04/26/19 documented as of this encounter
--- OUTSIDE RECORDS SUMMARY | 2024-07-22 15:22 | XMS_ITS | Referral Summary ---
Author Organization [address] Address [address] [place] [id number] Care Team Providers Care Event Sales Assistant Name Role Phone Rosaura Lorenzo MD Primary Care Provider [phone] Allergies Active Allergy Reactions Criticality Noted Date [...] Stevioside (Bulk) Unknown 12/04/2023 Pseudoephedrine Unknown 12/04/2023 [place] Seed Unknown 12/04/2023 Venom-Honey Bee Unknown 12/04/2023 [...] (ATROVENT) 21 mcg (0.03 %) nasal spray [place] 2 sprays twice a day by intranasal [...] Date Diagnosed Date Cyst on ear 12/02/2023 Social History Tobacco Use Types Packs/Day Years Used Date Smoking Tobacco: Never Smokeless Tobacco: Never Tobacco Cessation:Counseling Given: Not Answered Comments Unknown Sex and Gender Information Value Date Recorded Sex Assigned at Not on file Legal Sex Female 7:00 PM 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 Gender Identity Not on file Sexual Orientation Not on file Last Filed Vital Signs Vital Sign Reading Time Taken Comments Blood Pressure 130/85 03/01/2019 10:36 AM 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 Pulse 82 03/01/2019 10:36 AM 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 Temperature 36.3 C (97.4 F) 03/01/2019 10:36 AM 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 Respiratory Rate 18 12/04/2023 8:52 AM CDT Oxygen Saturation 95% 03/01/2019 10:36 AM 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 Inhaled Oxygen Concentration - - Weight 108.9 kg (240 lb) 12/04/2023 8:52 AM CDT Height 166.4 cm (5' 5.5 ) 12/04/2023 8:52 AM CDT Body Mass Index 39.33 12/04/2023 8:52 AM CDT Plan of Treatment Not on file Procedures Procedure Name Priority Date/Time Associated Diagnosis Comments SCREENING MAMMOGRAM BILATERAL W MORALES Routine 03/01/2016 12:34 PM 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 from Last 3 Months or Most Recently Relevant to Health Maintenance Results * Screening Mammogram Bilateral W Morales (03/01/2016 12:34 PM 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) Anatomical Region Laterality Modality Breast Bilateral Mammography 03/01/2016 12:3 4 PM 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 Impressions 03/05/2016 8:40 AM 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 BI-RAD 2 BENIGN There is no mammographic evidence of malignancy. A 1 year screening mammogram is recommended. The patient has been or will be contacted. The patient will be entered into a reminder system with a target due date of 1 year for her next screening exam. Electronically signed by: Live luu/rubio:03/05/2016 08:40:07 Demographic Analyst: Danna Lehman)([place]), [facility] letter sent: Normal Exam Reading location: BI-RADS: 2 Benign [EOD] Narrative 03/05/2016 8:40 AM 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 - MG BILATERAL DIGITAL SCREENING MAMMOGRAM 3D/2D [...] mammogram, 07/03/2012 mammogram, and 09/16/2013 mammogram - [facility]. BREAST TISSUE: There are scattered areas of [...] mammogram, 07/03/2012 mammogram, and [facility] BREAST TISSUE: There are scattered areas of [...] exam. Electronically signed by: Live [email or web address]/rubio:03/05/2016 08:40:07 Demographic Analyst: Danna Shelley RT GenaR)(M), [facility] letter sent: Normal Exam Reading location: BI-RADS: 2 Benign [EOD] Rosaura Lorenzo MD IMG MAMMO PROCEDURES Final Resul t from Last 3 Months or Most Recently Relevant to Health Maintenance Insurance MEDICARE [employer] Care Teams Event Sales Assistant Relationship Specialty Start Date End Date Rosaura Lorenzo MD [address] [address] PCP - General 12/07/18
--- OUTSIDE RECORDS SUMMARY | 2024-07-22 15:23 | XMS_ITS | Data Portability ---
Author Organization [facility] LAURIESheeba Mary Adam Address [address] [place] [address] Care Team Providers Care Veterinary Virus Serum Inspector Name Role Phone ROSAURA TIM Primary Care Provider TROY MUJICA Wheel Braider ROBERTO BUENROSTRO Vascular Surgeon BIRD CAMPOS Ivory Carver Assessment Encounter Date Assessment Date Assessment LastModified by Organization Details LastModified Time 11/18/2023 11/18/2023 localized edema -- to see VASCULAR SURGEON for this evalation Not available 11/18/2023 17:14:35 06/08/2024 06/08/2024 OK for B 12 supplement and CO Q 10 max dose is 400 mg daily Not available 06/08/2024 17:00:42 Plan of Treatment Reminders Order Date Submit Date Provider Last Modified By Organization Details Last Modified Time Details Appointments None recorded. Lab TSH, serum or plasma 2023 024 [facility] (Lab), [address] [place], [address], 4 12:35:23 lipid panel, serum - she will get her CBC done at the same day on 04/21/23-- thank you 2023 024 [facility] (Lab), [address] [place], [address], 4 10:08:51 vzv (varicell a-zoster) igg+igm Ab, serum 2022 023 ayse [facility], [address], [address], [place], [address], 3 11:56:43 TSH, serum or plasma 2022 023 ATHENAX [facility] (Lab), [address] [place], [address], 3 09:10:49 Referral cardiolog ist referral - she needs to see a cardiolog ist that is available at [facility] ( [facility]) 2024 025 [facility]se [facility], [address] [facility], [address] [address], [place], [address], 5 16:46:32 otolaryng ologist referral - bumps in EAC and tinnitus right ear-- eval for hearing aids 2023 024 PAUL Mujica MD, [address], [place], [address], 4 11:07:12 physical therapist referral - aquatic therapy-- verify her insurance is in network before starting PT 2023 024 [facility] [place], [address], [place], [address], 4 22:02:43 Procedures None recorded. Surgeries None recorded. Imaging None recorded. Medication Orders sertralin e 100 mg tablet 2024 025 [facility] #44189, [address], [place], [id number], 5 17:09:47 EpiPen 2-Dick 0.3 mg/0.3 mL injection , auto-inje ctor 2024 025 [facility] #38399, [address] [place] [address], [id number], 5 17:09:46 ipratropi um bromide 21 mcg (0.03 %) nasal spray 2024 025 [facility] #66935, [address] [place] [address], [id number], 5 17:09:46 baclofen 5 mg tablet [address] [facility] #39417, [address] [place] [address], [id number], 4 17:30:00 famotidin e 20 mg tablet [address] [facility] [address] [facility] #90208, [address] [place] [address], [id number], 4 17:30:00 amlodipin e 10 mg tablet [address] [facility] [address] [facility] #62528, [address] [place] [address], [id number], 4 17:30:00 ipratropi um bromide 21 mcg (0.03 %) nasal spray [address] [facility] [address] [facility] #10885, [address] [place] [address], [id number], 4 17:30:00 levothyro xine 100 mcg tablet [address] [facility] #12399, [address] [place] [address], [id number], 4 17:30:00 ropinirol e 1 mg tablet 2022 023 [facility] #11831, [address] [place] [address], [id number], 3 17:53:04 sertralin e 100 mg tablet 2022 023 [facility] #84732, [address] [place] [address], [id number], 3 13:02:10 oxybutyni n chloride ER 10 mg tablet,ex tended release 24 hr [address] [facility] #41428, [address] [place] [address], [id number], 3 17:52:15 spironola ctone 50 mg tablet 2022 023 [facility] #11602, [address] [place] [address], [id number], 3 09:41:[address] 10 mg tablet 2022 023 [facility] #16475, [address] [place] [address], [id number], 3 09:41:37 indapamid e 2.5 mg tablet [address] [facility] #92320, [address] [place] [address], [id number], 3 09:36:51 amlodipin e 10 mg tablet 2022 023 [facility] #26361, [address] [place] [address], [id number], 3 09:41:36 levothyro xine 100 mcg tablet 2022 023 [facility] #77573, [address] [place] [address], [id number], 3 09:41:37 potassium chloride ER 10 mEq tablet,ex tended release(p art/cryst ) 2022 023 ihsan [facility] #95608, [address], [place], [id number], 4 15:53:10 hydroxyzi ne HCl 25 mg tablet 2022 023 [facility] #39975, [address], [place], [id number], 3 09:41:38 Patient TargetsNo targets recorded. Patient Instructions Encounter Date Encounter Id Patient Instructions Last Modified By Organization Details Last Modified Time 04/23/2022 [id number] discussed COVID bivalent booster with patient Pneumococcal vaccination aandonian Not available 04/23/2022 12:29:22 06/08/2024 [id number] A healthy lifestyle: care instructions Not available 06/08/2024 17:09:40 Reason for Referral Wheel Braider Referral fo r Tinnitus of right ear tinnitus and EAC cysts bumps in EAC and tinnitus right ear-- eval for hearing aids Referring Physician: [facility], Encounter Date: 11/18/2023 Physical Therapist Referral for Strain of muscle of left lower leg aquatic therapy-- verify her insurance is in network before starting PT Referring Physician: [facility], Encounter Date: 11/18/2023 Ivory Carver Referral for At increased risk for cardiovascular event she needs to see a accounting auditor that is available at [facility] ( [facility]) Referring Physician: [facility], Encounter Date: 06/08/2024 Results Created Date Observation Date Name Description Value Unit Range Abnormal Flag Note LastModifiedBy Organization Detail LastModifiedTime 10/15/1910/14/2022 CBC W/ DIFFE RENTI AL WBC 6.51 x10'3 /uL 4.4-11 .0 Not Available [facility] (Lab) [address] [place], [address], 10/14/2022 10:05:37 10/15/19 23 10/14/2022 CBC W/ DIFFE RENTI AL RBC 5.03 x10'6 /uL 4.50-5 .10 Not Available [facility] (Lab) [address] [place], [address], 10/14/2022 10:05:37 10/15/19 23 10/14/2022 CBC W/ DIFFE RENTI AL hemoglobin 14.8 g/dL 12.3-1 5.3 Not Available [facility] (Lab) [address] [place], [address], 10/14/2022 10:05:37 10/15/19 23 10/14/2022 CBC W/ DIFFE RENTI AL hematocrit 45.8 % 35.9-4 4.6 high Not Available [facility] (Lab) [address] [place], [address], 10/14/2022 10:05:37 10/15/19 23 10/14/2022 CBC W/ DIFFE RENTI AL MCV 91.1 fL 80.0-9 6.0 Not Available [facility] (Lab) [address] [place], [address], 10/14/2022 10:05:37 10/15/19 23 10/14/2022 CBC W/ DIFFE RENTI AL MCH 29.4 pg 25.3-3 0.9 Not Available [facility] (Lab) [address] [place], [address], 10/14/2022 10:05:37 10/15/19 23 10/14/2022 CBC W/ DIFFE RENTI AL MCHC 32.3 g/dL 31.0-3 4.1 Not Available [facility] (Lab) [address] [place] [address], [address], 10/14/2022 10:05:37 10/15/19 23 10/14/2022 CBC W/ DIFFE RENTI AL RDW 16.1 % 12.4-1 5.1 high Not Available [facility] (Lab) [address] [place], [address], 10/14/2022 10:05:37 10/15/19 23 10/14/2022 CBC W/ DIFFE RENTI AL platelet count 242 x10'3 /uL 151-35 3 Not Available [facility] (Lab) [address] [place] [address], [address], 10/14/2022 10:05:37 10/15/19 23 10/14/2022 CBC W/ DIFFE RENTI AL MPV 9.4 fL 9.6-12 .0 low Not Available [facility] (Lab) [address] [place] [address], [address], 10/14/2022 10:05:37 10/15/19 23 10/14/2022 CBC W/ DIFFE RENTI AL RBC morphology NORMAL Not Available [facility] (Lab) [employer] [place], [address], 10/14/2022 10:05:37 10/15/19 23 10/14/2022 CBC W/ DIFFE RENTI AL platelet evaluation NORMAL Not Available [facility] (Lab) [address] [place], [address], 10/14/2022 10:05:37 10/15/19 23 10/14/2022 CBC W/ DIFFE RENTI AL WBC morphology NORMAL Not Available [facility] (Lab) [address] [place] [address], [address], 10/14/2022 10:05:37 10/15/19 23 10/14/2022 CBC W/ DIFFE RENTI AL lymphocytes 24.0 % 15.8-4 5.0 Not Available [facility] (Lab) [address] [place], [address], 10/14/2022 10:05:37 10/15/19 23 10/14/2022 CBC W/ DIFFE RENTI AL neutrophils 60.8 % 42.1-7 1.9 Not Available [facility] (Lab) [address] [place] [address], [address], 10/14/2022 10:05:37 10/15/19 23 10/14/2022 CBC W/ DIFFE RENTI AL monocytes 11.2 % 5.7-12 .5 Not Available [facility] (Lab) [address] [place] [address], [address], 10/14/2022 10:05:37 10/15/19 23 10/14/2022 CBC W/ DIFFE RENTI AL eosinophils 2.9 % 0.0-5. 6 Not Available [facility] (Lab) [address] [place] [address], [address], 10/14/2022 10:05:37 10/15/19 23 10/14/2022 CBC W/ DIFFE RENTI AL basophils 0.8 % 0.0-1. 3 Not Available [facility] (Lab) [address] [place] [address], [address], 10/14/2022 10:05:37 10/15/19 23 10/14/2022 CBC W/ DIFFE RENTI AL abs. neutrophils 3.96 x10'3 /uL 1.40-6 .00 Not Available [facility] (Lab) [address] [place] [address], [address], 10/14/2022 10:05:37 10/15/19 23 10/14/2022 CBC W/ DIFFE RENTI AL immature granulocytes 0.3 % 0.0-0. 5 Not Available [facility] (Lab) [address] [place] [address], [address], 10/14/2022 10:05:37 10/15/19 23 10/14/2022 CBC W/ DIFFE RENTI AL abs. lymphocytes 1.56 x10'3 /uL 0.80-4 .70 Not Available [facility] (Lab) [address] [place] [address], [address], 10/14/2022 10:05:37 10/16/19 23 10/15/2022 BASIC METAB OLIC PANEL glucose 105 mg/dL 70-99 high Not Available [facility] (Lab) [address] [place] [address], [address], 10/15/2022 16:17:12 10/16/19 23 10/15/2022 BASIC METAB OLIC PANEL BUN 13 mg/dL 7-18 Not Available [facility] (Lab) [address] [place] [address], [address], 10/15/2022 16:17:12 10/16/19 23 10/15/2022 BASIC METAB OLIC PANEL creatinine 0.91 mg/dL 0.55-1 .02 Not Available [facility] (Lab) [address] [place] [address], [address], 10/15/2022 16:17:12 10/16/19 23 10/15/2022 BASIC METAB OLIC PANEL sodium 137 mmol/ L 136-14 5 Not Available [facility] (Lab) [address] [place] [address], [address], 10/15/2022 16:17:12 10/16/19 23 10/15/2022 BASIC METAB OLIC PANEL potassium 3.7 mmol/ L 3.5-5. 1 Not Available [facility] (Lab) [address] [place] [address], [address], 10/15/2022 16:17:12 10/16/19 23 10/15/2022 BASIC METAB OLIC PANEL chloride 99 mmol/ L 100-10 8 low Not Available [facility] (Lab) [employer] [place], [address], 10/15/2022 16:17:12 10/16/19 23 10/15/2022 BASIC METAB OLIC PANEL total CO2 30.6 mmol/ L 21-32 Not Available [facility] (Lab) [address] [place] [address], [address], 10/15/2022 16:17:12 10/16/19 23 10/15/2022 BASIC METAB OLIC PANEL calcium 9.8 mg/dL 8.5-10 .1 Not Available [facility] (Lab) [address] [place] [address], [address], 10/15/2022 16:17:12 10/16/19 23 10/15/2022 BASIC METAB OLIC PANEL anion gap 7.4 mmol/ L 5-15 Not Available [facility] (Lab) [address] [place] [address], [address], 10/15/2022 16:17:12 10/16/19 23 10/15/2022 BASIC METAB OLIC PANEL BUN creatinine ratio 14.3 6-26 Not Available [facility] (Lab) [address] [place] [address], [address], 10/15/2022 16:17:12 10/16/19 23 10/15/2022 BASIC METAB OLIC PANEL est GFR 70 mL/mi n/1.7 3_M2 >90 low NOTE: eGFR is not calcu lated for patie nts <18 years of age. This is an estim ated GFR calcu latio n using the new CKD EPI creat inine equat ion witho ut race and so does not requi re a corre ction facto r for race. This estim ated GFR shoul d not be used for calcu latin g drug doses . Not Available [facility] (Lab) [address] [place] [address], [address], 10/15/2022 16:17:12 10/16/19 23 10/15/2022 TSH ULTRA SENSI TIVE TSH ultrasensiti ve 1.793 uIU/m L 0.358- 3.74 HIGH DOSES OF BIOTI N MAY INTER FERE WITH THIS TEST RESUL T. CORRE LATIO N TO CLINI RAYO HISTO RY AND PRESE NTATI ON RECOM HECTOR D. Not Available [facility] (Lab) [employer] [place], [address], 10/15/2022 16:17:14 10/16/19 23 10/18/2022 VZV VIRUS AB (IGM) vzv antibody (IgM) <=0.90 Refer ence range : <=0.9 0 < or = 0.90 Negat rogelio 0.91 - 1.09 Equiv ocal > or = 1.10 Posit rogelio Resul ts from any one IgM assay shoul d not be used as a sole deter minan t of a curre nt or recen t infec tion. Becau se an IgM test can yield false posit rogelio resul ts and low level s of IgM antib ning may persi st for more than 12 month s post infec tion, relia nce on a singl e test resul t could be misle ading . If an acute infec tion is suspe cted, consi shanna obtai dimitrios a new speci men and submi t for both IgG and IgM testi ng in two or more weeks . Test Perfo rmed by Triny Mishra, [facility], [address] [facility] , [place], [place] Kris Banda M.D., Ph.D. , [facility] , CLIA [id number] Not Available [facility] (Lab) [employer] [place], [address], 10/18/2022 10:01:01 10/16/19 23 10/20/2022 VZV VIRUS AB (IGG) vzv antibody (IgG) 162.10 low Refer ence range : >=165 .00 Unit: Index Index Inter preta tion ===== ===== ===== ==== < 135.0 0 Negat rogelio - Antib ning not detec kevin 135.0 0 - 164.9 9 Equiv ocal > or = 165.0 0 Posit rogelio - Antib ning detec kevin Test Perfo rmed by Danica , Triny baker, [facility], [address] [facility] , [facility], [place] Kris Banda M.D., Ph.D. , [facility] , CLIA [id number] Not Available [facility] (Lab) [address] [place] [address], [address], 10/20/2022 12:01:15 12/17/19 23 12/16/2022 BASIC METAB OLIC PANEL glucose 99 mg/dL 70-99 Not Available [facility] (Lab) [address] [place] [address], [address], 12/16/2022 10:40:25 12/17/19 23 12/16/2022 BASIC METAB OLIC PANEL BUN 18 mg/dL 7-18 Not Available [facility] (Lab) [address] [place] [address], [address], 12/16/2022 10:40:25 12/17/19 23 12/16/2022 BASIC METAB OLIC PANEL creatinine 0.94 mg/dL 0.55-1 .02 Not Available [facility] (Lab) [address] [place] [address], [address], 12/16/2022 10:40:25 12/17/19 23 12/16/2022 BASIC METAB OLIC PANEL sodium 134 mmol/ L 136-14 5 low Not Available [facility] (Lab) [address] [place] [address], 87[address], 12/16/2022 10:40:25 12/17/19 23 12/16/2022 BASIC METAB OLIC PANEL potassium 3.1 mmol/ L 3.5-5. 1 low Not Available [facility] (Lab) [address] [place] [address], [address], 12/16/2022 10:40:25 12/17/19 23 12/16/2022 BASIC METAB OLIC PANEL chloride 95 mmol/ L 100-10 8 low Not Available [facility] (Lab) [address] [place], [address], 12/16/2022 10:40:25 12/17/19 23 12/16/2022 BASIC METAB OLIC PANEL total CO2 33.2 mmol/ L 21-32 high Not Available [facility] (Lab) [address] [place] [address], [address], 12/16/2022 10:40:25 12/17/19 23 12/16/2022 BASIC METAB OLIC PANEL calcium 9.5 mg/dL 8.5-10 .1 Not Available [facility] (Lab) [address] [place] [address], [address], 12/16/2022 10:40:25 12/17/19 23 12/16/2022 BASIC METAB OLIC PANEL anion gap 5.8 mmol/ L 5-15 Not Available [facility] (Lab) [address] [place] [address], 47[address], 12/16/2022 10:40:25 12/17/19 23 12/16/2022 BASIC METAB OLIC PANEL BUN creatinine ratio 19.1 6-26 Not Available [facility] (Lab) [address] [place] [address], [address], 12/16/2022 10:40:25 12/17/19 23 12/16/2022 BASIC METAB OLIC PANEL est GFR 67 mL/mi n/1.7 3_M2 >90 low NOTE: eGFR is not calcu lated for patie nts <18 years of age. This is an estim ated GFR calcu latio n using the new CKD EPI creat inine equat ion witho ut race and so does not requi re a corre ction facto r for race. This estim ated GFR shoul d not be used for calcu latin g drug doses . Not Available [facility] (Lab) [address] [place] [address], [address], 12/16/2022 10:40:25 01/04/2001/03/2023 BASIC METAB OLIC PANEL glucose 101 mg/dL 70-99 high Not Available [facility] (Lab) [address] [place] [address], [address], 01/03/2023 11:07:29 01/04/2001/03/2023 BASIC METAB OLIC PANEL BUN 21 mg/dL 7-18 high Not Available [facility] (Lab) [address] [place] [address], [address], 01/03/2023 11:07:29 01/04/2001/03/2023 BASIC METAB OLIC PANEL creatinine 0.92 mg/dL 0.55-1 .02 Not Available [facility] (Lab) [address] [place] [address], 76[address], 01/03/2023 11:07:29 01/04/2001/03/2023 BASIC METAB OLIC PANEL sodium 137 mmol/ L 136-14 5 Not Available [facility] (Lab) [address] [place] [address], 20[address], 01/03/2023 11:07:29 01/04/2001/03/2023 BASIC METAB OLIC PANEL potassium 3.9 mmol/ L 3.5-5. 1 Not Available [facility] (Lab) [address] [place] [address], [address], 01/03/2023 11:07:29 01/04/2001/03/2023 BASIC METAB OLIC PANEL chloride 100 mmol/ L 100-10 8 Not Available [facility] (Lab) [address] [place], [address], 01/03/2023 11:07:29 01/04/20 23 01/03/2023 BASIC METAB OLIC PANEL total CO2 29.2 mmol/ L 21-32 Not Available [facility] (Lab) [address] [place] [address], [address], 01/03/2023 11:07:29 01/04/20 23 01/03/2023 BASIC METAB OLIC PANEL calcium 9.4 mg/dL 8.5-10 .1 Not Available [facility] (Lab) [address] [place] [address], [address], 01/03/2023 11:07:29 01/04/20 23 01/03/2023 BASIC METAB OLIC PANEL anion gap 7.8 mmol/ L 5-15 Not Available [facility] (Lab) [address] [place] [address], 61289, 01/03/2023 11:07:29 01/04/20 23 01/03/2023 BASIC METAB OLIC PANEL BUN creatinine ratio 22.8 6-26 Not Available [facility] (Lab) [address] [place] [address], 71393, 01/03/2023 11:07:29 01/04/20 23 01/03/2023 BASIC METAB OLIC PANEL est GFR 69 mL/mi n/1.7 3_M2 >90 low NOTE: eGFR is not calcu lated for patie nts <18 years of age. This is an estim ated GFR calcu latio n using the new CKD EPI creat inine equat ion witho ut race and so does not requi re a corre ction facto r for race. This estim ated GFR shoul d not be used for calcu latin g drug doses . Not Available [facility] (Lab) [address] [place] [address], [address], 01/03/2023 11:07:29 01/21/2001/20/2023 CBC W/ DIFFE RENTI AL WBC 5.42 x10'3 /uL 4.4-11 .0 Not Available [facility] (Lab) [address] [place], [address], 01/20/2023 10:21:32 01/21/20 23 01/20/2023 CBC W/ DIFFE RENTI AL RBC 4.98 x10'6 /uL 4.50-5 .10 Not Available [facility] (Lab) [employer] [place], [address], 01/20/2023 10:21:32 01/21/20 23 01/20/2023 CBC W/ DIFFE RENTI AL hemoglobin 15.0 g/dL 12.3-1 5.3 Not Available [facility] (Lab) [address] [place] [address], [address], 01/20/2023 10:21:32 01/21/20 23 01/20/2023 CBC W/ DIFFE RENTI AL hematocrit 46.5 % 35.9-4 4.6 high Not Available [facility] (Lab) [employer] [place], [address], 01/20/2023 10:21:32 01/21/20 23 01/20/2023 CBC W/ DIFFE RENTI AL MCV 93.4 fL 80.0-9 6.0 Not Available [facility] (Lab) [address] [place], [address], 01/20/2023 10:21:32 01/21/20 23 01/20/2023 CBC W/ DIFFE RENTI AL MCH 30.1 pg 25.3-3 0.9 Not Available [facility] (Lab) [address] [place] [address], 15993, 01/20/2023 10:21:32 01/21/20 23 01/20/2023 CBC W/ DIFFE RENTI AL MCHC 32.3 g/dL 31.0-3 4.1 Not Available [facility] (Lab) [address] [place] [address], 13883, 01/20/2023 10:21:32 01/21/20 23 01/20/2023 CBC W/ DIFFE RENTI AL RDW 14.5 % 12.4-1 5.1 Not Available [facility] (Lab) [address] [place] [address], 17096, 01/20/2023 10:21:32 01/21/20 23 01/20/2023 CBC W/ DIFFE RENTI AL platelet count 223 x10'3 /uL 151-35 3 Not Available [facility] (Lab) [address] [place] [address], 40146, 01/20/2023 10:21:32 01/21/20 23 01/20/2023 CBC W/ DIFFE RENTI AL MPV 8.8 fL 9.6-12 .0 low Not Available [facility] (Lab) [address] [place] [address], 88827, 01/20/2023 10:21:32 01/21/20 23 01/20/2023 CBC W/ DIFFE RENTI AL RBC morphology NORMAL Not Available [facility] (Lab) [address] [place] [address], 35931, 01/20/2023 10:21:32 01/21/20 23 01/20/2023 CBC W/ DIFFE RENTI AL platelet evaluation NORMAL Not Available [facility] (Lab) [address] [place] [address], 94198, 01/20/2023 10:21:32 01/21/20 23 01/20/2023 CBC W/ DIFFE RENTI AL WBC morphology NORMAL Not Available [facility] (Lab) [address] [place], [address], 01/20/2023 10:21:32 01/21/2001/20/2023 CBC W/ DIFFE RENTI AL lymphocytes 27.5 % 15.8-4 5.0 Not Available [facility] (Lab) [address] [place], [address], 01/20/2023 10:21:32 01/21/20 23 01/20/2023 CBC W/ DIFFE RENTI AL neutrophils 56.3 % 42.1-7 1.9 Not Available [facility] (Lab) [address] [place], [address], 01/20/2023 10:21:32 01/21/20 23 01/20/2023 CBC W/ DIFFE RENTI AL monocytes 11.8 % 5.7-12 .5 Not Available [facility] (Lab) [employer] [place], [address], 01/20/2023 10:21:32 01/21/2001/20/2023 CBC W/ DIFFE RENTI AL eosinophils 3.3 % 0.0-5. 6 Not Available [facility] (Lab) [address] [place], [address], 01/20/2023 10:21:32 01/21/20 23 01/20/2023 CBC W/ DIFFE RENTI AL basophils 0.7 % 0.0-1. 3 Not Available [facility] (Lab) [address] [place], [address], 01/20/2023 10:21:32 01/21/20 23 01/20/2023 CBC W/ DIFFE RENTI AL abs. neutrophils 3.05 x10'3 /uL 1.40-6 .00 Not Available [facility] (Lab) [address] [place] [address], [address]017, 01/20/2023 10:21:32 01/21/20 23 01/20/2023 CBC W/ DIFFE RENTI AL immature granulocytes 0.4 % 0.0-0. 5 Not Available [facility] (Lab) [employer] [place], [address], 01/20/2023 10:21:32 01/21/20 23 01/20/2023 CBC W/ DIFFE RENTI AL abs. lymphocytes 1.49 x10'3 /uL 0.80-4 .70 Not Available [facility] (Lab) [address] [place], [address], 01/20/2023 10:21:32 03/10/20 23 03/10/2023 CBC W/ DIFFE RENTI AL WBC 5.14 x10'3 /uL 4.4-11 .0 Not Available [facility] (Lab) [address] [place] [address], 11739, 03/10/2023 10:16:20 03/10/20 23 03/10/2023 CBC W/ DIFFE RENTI AL RBC 4.94 x10'6 /uL 4.50-5 .10 Not Available [facility] (Lab) [address] [place] [address], 83334, 03/10/2023 10:16:20 03/10/20 23 03/10/2023 CBC W/ DIFFE RENTI AL hemoglobin 15.0 g/dL 12.3-1 5.3 Not Available [facility] (Lab) [employer] [place], [address], 03/10/2023 10:16:20 03/10/20 23 03/10/2023 CBC W/ DIFFE RENTI AL hematocrit 46.5 % 35.9-4 4.6 high Not Available [facility] (Lab) [address] [place] [address], [id number], 03/10/2023 10:16:20 03/10/20 23 03/10/2023 CBC W/ DIFFE RENTI AL MCV 94.1 fL 80.0-9 6.0 Not Available [facility] (Lab) [address] [place], [address], 03/10/2023 10:16:20 03/10/20 23 03/10/2023 CBC W/ DIFFE RENTI AL MCH 30.4 pg 25.3-3 0.9 Not Available [facility] (Lab) [address] [place], [address], 03/10/2023 10:16:20 03/10/20 23 03/10/2023 CBC W/ DIFFE RENTI AL MCHC 32.3 g/dL 31.0-3 4.1 Not Available [facility] (Lab) [address] [place] [address], [id number], 03/10/2023 10:16:20 03/10/20 23 03/10/2023 CBC W/ DIFFE RENTI AL RDW 14.6 % 12.4-1 5.1 Not Available [facility] (Lab) [employer] [place], [address], 03/10/2023 10:16:20 03/10/20 23 03/10/2023 CBC W/ DIFFE RENTI AL platelet count 260 x10'3 /uL 151-35 3 Not Available [facility] (Lab) [address] [place], [address], 03/10/2023 10:16:20 03/10/20 23 03/10/2023 CBC W/ DIFFE RENTI AL MPV 9.0 fL 9.6-12 .0 low Not Available [facility] (Lab) [address] [place] [address], [address], 03/10/2023 10:16:20 03/10/20 23 03/10/2023 CBC W/ DIFFE RENTI AL RBC morphology NORMAL Not Available [facility] (Lab) [address] [place], [address], 03/10/2023 10:16:20 03/10/20 23 03/10/2023 CBC W/ DIFFE RENTI AL platelet evaluation NORMAL Not Available [facility] (Lab) [address] [place], [address], 03/10/2023 10:16:20 03/10/20 23 03/10/2023 CBC W/ DIFFE RENTI AL WBC morphology NORMAL Not Available [facility] (Lab) [address] [place], [address], 03/10/2023 10:16:20 03/10/20 23 03/10/2023 CBC W/ DIFFE RENTI AL lymphocytes 29.0 % 15.8-4 5.0 Not Available [facility] (Lab) [address] [place], [address], 03/10/2023 10:16:20 03/10/20 23 03/10/2023 CBC W/ DIFFE RENTI AL neutrophils 53.4 % 42.1-7 1.9 Not Available [facility] (Lab) [address] [place], [address], 03/10/2023 10:16:20 03/10/20 23 03/10/2023 CBC W/ DIFFE RENTI AL monocytes 12.5 % 5.7-12 .5 Not Available [facility] (Lab) [address] [place], [address], 03/10/2023 10:16:20 03/10/20 23 03/10/2023 CBC W/ DIFFE RENTI AL eosinophils 3.7 % 0.0-5. 6 Not Available [facility] (Lab) [address] [place], [address], 03/10/2023 10:16:20 03/10/20 23 03/10/2023 CBC W/ DIFFE RENTI AL basophils 1.0 % 0.0-1. 3 Not Available [facility] (Lab) [address] [place] [address], [address], 03/10/2023 10:16:20 03/10/20 23 03/10/2023 CBC W/ DIFFE RENTI AL abs. neutrophils 2.75 x10'3 /uL 1.40-6 .00 Not Available [facility] (Lab) [address] [place] [address], [address], 03/10/2023 10:16:20 03/10/20 23 03/10/2023 CBC W/ DIFFE RENTI AL immature granulocytes 0.4 % 0.0-0. 5 Not Available [facility] (Lab) [address] [place] [address], [address], 03/10/2023 10:16:20 03/10/20 23 03/10/2023 CBC W/ DIFFE RENTI AL abs. lymphocytes 1.49 x10'3 /uL 0.80-4 .70 Not Available [facility] (Lab) [address] [place] [address], [address], 03/10/2023 10:16:20 03/10/20 23 03/10/2023 URINA LYSIS WITH REFLE X color YELLOW Not Available [facility] (Lab) [address] [place] [address], [address], 03/10/2023 10:45:34 03/10/20 23 03/10/2023 URINA LYSIS WITH REFLE X clarity CLEAR Not Available [facility] (Lab) [address] [place] [address], [address], 03/10/2023 10:45:34 03/10/20 23 03/10/2023 URINA LYSIS WITH REFLE X specific gravity 1.010 1.000- 1.030 Not Available [facility] (Lab) [address] [place], [address], 03/10/2023 10:45:34 03/10/20 23 03/10/2023 URINA LYSIS WITH REFLE X pH, urine 6.0 5.0-9. 0 Not Available [facility] (Lab) [address] [place], [address], 03/10/2023 10:45:34 03/10/20 23 03/10/2023 URINA LYSIS WITH REFLE X leukocyte esterase NEGATI VE neg Not Available [facility] (Lab) [address] [place], [address], 03/10/2023 10:45:34 03/10/20 23 03/10/2023 URINA LYSIS WITH REFLE X nitrites NEGATI VE neg Not Available [facility] (Lab) [address] [place], [address], 03/10/2023 10:45:34 03/10/20 23 03/10/2023 URINA LYSIS WITH REFLE X protein NEGATI VE neg Not Available [facility] (Lab) [address] [place], [address], 03/10/2023 10:45:34 03/10/20 23 03/10/2023 URINA LYSIS WITH REFLE X glucose NEGATI VE neg Not Available [facility] (Lab) [address] [place], [address], 03/10/2023 10:45:34 03/10/20 23 03/10/2023 URINA LYSIS WITH REFLE X ketone NEGATI VE neg Not Available [facility] (Lab) [address] [place], [address], 03/10/2023 10:45:34 03/10/20 23 03/10/2023 URINA LYSIS WITH REFLE X bilirubin NEGATI VE neg Not Available [facility] (Lab) [address] [place], [address], 03/10/2023 10:45:34 03/10/20 23 03/10/2023 URINA LYSIS WITH REFLE X blood NEGATI VE neg Not Available [facility] (Lab) [address] [place], [address], 03/10/2023 10:45:34 03/10/20 23 03/10/2023 BASIC METAB OLIC PANEL glucose 96 mg/dL 70-99 Not Available [facility] (Lab) [address] [place], [address], 03/10/2023 10:48:26 03/10/20 23 03/10/2023 BASIC METAB OLIC PANEL BUN 20 mg/dL 7-18 high Not Available [facility] (Lab) [address] [place], [address], 03/10/2023 10:48:26 03/10/20 23 03/10/2023 BASIC METAB OLIC PANEL creatinine 1.00 mg/dL 0.55-1 .02 Not Available [facility] (Lab) [address] [place], [address], 03/10/2023 10:48:26 03/10/20 23 03/10/2023 BASIC METAB OLIC PANEL sodium 137 mmol/ L 136-14 5 Not Available [facility] (Lab) [address] [place], [address], 03/10/2023 10:48:26 03/10/20 23 03/10/2023 BASIC METAB OLIC PANEL potassium 4.2 mmol/ L 3.5-5. 1 Not Available [facility] (Lab) [address] [place], [address], 03/10/2023 10:48:26 03/10/20 23 03/10/2023 BASIC METAB OLIC PANEL chloride 100 mmol/ L 100-10 8 Not Available [facility] (Lab) [address] [place], [address], 03/10/2023 10:48:26 03/10/20 23 03/10/2023 BASIC METAB OLIC PANEL total CO2 29.8 mmol/ L 21-32 Not Available [facility] (Lab) [address] [place], [address], 03/10/2023 10:48:26 03/10/20 23 03/10/2023 BASIC METAB OLIC PANEL calcium 9.5 mg/dL 8.5-10 .1 Not Available [facility] (Lab) [address] [place] [address], [address], 03/10/2023 10:48:26 03/10/20 23 03/10/2023 BASIC METAB OLIC PANEL anion gap 7.2 mmol/ L 5-15 Not Available [facility] (Lab) [address] [place] [address], [address], 03/10/2023 10:48:26 03/10/20 23 03/10/2023 BASIC METAB OLIC PANEL BUN creatinine ratio 20.0 6-26 Not Available [facility] (Lab) [address] [place] [address], [address], 03/10/2023 10:48:26 03/10/20 23 03/10/2023 BASIC METAB OLIC PANEL est GFR 62 mL/mi n/1.7 3_M2 >90 low NOTE: eGFR is not calcu lated for patie nts <18 years of age. This is an estim ated GFR calcu latio n using the new CKD EPI creat inine equat ion witho ut race and so does not requi re a corre ction facto r for race. This estim ated GFR shoul d not be used for calcu latin g drug doses . Not Available [facility] (Lab) [address] [place] [address], [address], 03/10/2023 10:48:26 03/10/20 23 03/10/2023 URINE CULTU RE header [facility] [id number], [place] [address] Patie nt:LEANN CHVAEZROVERTO 1815 Med Rec#: [id number] Order ing MD: ROSAURA TIM : [birth year] Sex: F Locat ion: [facility] B Test: URINE CULTU RE Colle ct Date: 03-10 08:42 Acces jose j #: [id number] Not Available [facility] (Lab) [address] [place] [address], [address], 03/12/2023 10:00:49 03/10/20 23 03/10/2023 URINE CULTU RE urine culture SPECI MEN DESCR IPTIO N - URINE CLEAN CATCH SPECI AL REQUE STS - NO SPECI AL REQUE ST CULTU RE - NO GROWT H 2 DAYS REPOR T STATU S - FINAL 03/12 Not Available [facility] (Lab) [address] [place] [address], [address], 03/12/2023 10:00:49 04/21/19 24 04/21/2023 CBC W/ DIFFE RENTI AL WBC 4.65 x10'3 /uL 4.4-11 .0 Not Available [facility] (Lab) [address] [place] [address], [address], 04/21/2023 09:48:56 04/21/19 24 04/21/2023 CBC W/ DIFFE RENTI AL RBC 5.00 x10'6 /uL 4.50-5 .10 Not Available [facility] (Lab) [address] [place] [address], [address], 04/21/2023 09:48:56 04/21/19 24 04/21/2023 CBC W/ DIFFE RENTI AL hemoglobin 15.3 g/dL 12.3-1 5.3 Not Available [facility] (Lab) [address] [place], [address], 04/21/2023 09:48:56 04/21/19 24 04/21/2023 CBC W/ DIFFE RENTI AL hematocrit 47.0 % 35.9-4 4.6 high Not Available [facility] (Lab) [address] [place] [address], [address], 04/21/2023 09:48:56 04/21/19 24 04/21/2023 CBC W/ DIFFE RENTI AL MCV 94.0 fL 80.0-9 6.0 Not Available [facility] (Lab) [address] [place] [address], [address], 04/21/2023 09:48:56 04/21/19 24 04/21/2023 CBC W/ DIFFE RENTI AL MCH 30.6 pg 25.3-3 0.9 Not Available [facility] (Lab) [address] [place] [address], [address], 04/21/2023 09:48:56 04/21/19 24 04/21/2023 CBC W/ DIFFE RENTI AL MCHC 32.6 g/dL 31.0-3 4.1 Not Available [facility] (Lab) [address] [place] [address], [address], 04/21/2023 09:48:56 04/21/19 24 04/21/2023 CBC W/ DIFFE RENTI AL RDW 14.2 % 12.4-1 5.1 Not Available [facility] (Lab) [address] [place] [address], [address], 04/21/2023 09:48:56 04/21/19 24 04/21/2023 CBC W/ DIFFE RENTI AL platelet count 245 x10'3 /uL 151-35 3 Not Available [facility] (Lab) [address] [place], [address], 04/21/2023 09:48:56 04/21/19 24 04/21/2023 CBC W/ DIFFE RENTI AL MPV 8.8 fL 9.6-12 .0 low Not Available [facility] (Lab) [address] [place], [address], 04/21/2023 09:48:56 04/21/19 24 04/21/2023 CBC W/ DIFFE RENTI AL RBC morphology NORMAL Not Available [facility] (Lab) [address] [place], [address], 04/21/2023 09:48:56 04/21/19 24 04/21/2023 CBC W/ DIFFE RENTI AL platelet evaluation NORMAL Not Available [facility] (Lab) [address] [place], [address], 04/21/2023 09:48:56 04/21/19 24 04/21/2023 CBC W/ DIFFE RENTI AL WBC morphology NORMAL Not Available [facility] (Lab) [address] [place], [address], 04/21/2023 09:48:56 04/21/19 24 04/21/2023 CBC W/ DIFFE RENTI AL lymphocytes 29.2 % 15.8-4 5.0 Not Available [facility] (Lab) [address] [place], [address], 04/21/2023 09:48:56 04/21/19 24 04/21/2023 CBC W/ DIFFE RENTI AL neutrophils 54.0 % 42.1-7 1.9 Not Available [facility] (Lab) [address] [place], [address], 04/21/2023 09:48:56 04/21/19 24 04/21/2023 CBC W/ DIFFE RENTI AL monocytes 13.1 % 5.7-12 .5 high Not Available [facility] (Lab) [address] [place] [address], [address], 04/21/2023 09:48:56 04/21/19 24 04/21/2023 CBC W/ DIFFE RENTI AL eosinophils 2.6 % 0.0-5. 6 Not Available [facility] (Lab) [address] [place] [address], [address], 04/21/2023 09:48:56 04/21/19 24 04/21/2023 CBC W/ DIFFE RENTI AL basophils 0.9 % 0.0-1. 3 Not Available [facility] (Lab) [address] [place] [address], [address], 04/21/2023 09:48:56 04/21/19 24 04/21/2023 CBC W/ DIFFE RENTI AL abs. neutrophils 2.51 x10'3 /uL 1.40-6 .00 Not Available [facility] (Lab) [address] [place] [address], [address], 04/21/2023 09:48:56 04/21/19 24 04/21/2023 CBC W/ DIFFE RENTI AL immature granulocytes 0.2 % 0.0-0. 5 Not Available [facility] (Lab) [address] [place] [address], [address], 04/21/2023 09:48:56 04/21/19 24 04/21/2023 CBC W/ DIFFE RENTI AL abs. lymphocytes 1.36 x10'3 /uL 0.80-4 .70 Not Available [facility] (Lab) [address] [place] [address], [address], 04/21/2023 09:48:56 04/21/19 24 04/21/2023 BASIC METAB OLIC PANEL glucose 114 mg/dL 70-99 high Not Available [facility] (Lab) [address] [place], [address], 04/21/2023 10:05:21 04/21/19 24 04/21/2023 BASIC METAB OLIC PANEL BUN 18 mg/dL 7-18 Not Available [facility] (Lab) [address] [place], [address], 04/21/2023 10:05:21 04/21/19 24 04/21/2023 BASIC METAB OLIC PANEL creatinine 1.08 mg/dL 0.55-1 .02 high Not Available [facility] (Lab) [address] [place], [address], 04/21/2023 10:05:21 04/21/19 24 04/21/2023 BASIC METAB OLIC PANEL sodium 138 mmol/ L 136-14 5 Not Available [facility] (Lab) [address] [place] [address], [address], 04/21/2023 10:05:21 04/21/19 24 04/21/2023 BASIC METAB OLIC PANEL potassium 4.1 mmol/ L 3.5-5. 1 Not Available [facility] (Lab) [address] [place], [address], 04/21/2023 10:05:21 04/21/19 24 04/21/2023 BASIC METAB OLIC PANEL chloride 101 mmol/ L 100-10 8 Not Available [facility] (Lab) [address] [place] [address], [address], 04/21/2023 10:05:21 04/21/19 24 04/21/2023 BASIC METAB OLIC PANEL total CO2 28.4 mmol/ L 21-32 Not Available [facility] (Lab) [address] [place] [address], [address], 04/21/2023 10:05:21 04/21/19 24 04/21/2023 BASIC METAB OLIC PANEL calcium 9.3 mg/dL 8.5-10 .1 Not Available [facility] (Lab) [address] [place], [address], 04/21/2023 10:05:21 04/21/19 24 04/21/2023 BASIC METAB OLIC PANEL anion gap 8.6 mmol/ L 5-15 Not Available [facility] (Lab) [address] [place], [address], 04/21/2023 10:05:21 04/21/19 24 04/21/2023 BASIC METAB OLIC PANEL BUN creatinine ratio 16.7 6-26 Not Available [facility] (Lab) [address] [place] [address], [address], 04/21/2023 10:05:21 04/21/19 24 04/21/2023 BASIC METAB OLIC PANEL est GFR 57 mL/mi n/1.7 3_M2 >90 low NOTE: eGFR is not calcu lated for patie nts <18 years of age. This is an estim ated GFR calcu latio n using the new CKD EPI creat inine equat ion witho ut race and so does not requi re a corre ction facto r for race. This estim ated GFR shoul d not be used for calcu latin g drug doses . Not Available [facility] (Lab) [address] [place] [address], [address], 04/21/2023 10:05:21 04/21/19 24 04/21/2023 LIPID PANEL cholesterol 231 mg/dL <200.0 high Not Available [facility] (Lab) [address] [place], [address], 04/21/2023 10:05:24 04/21/19 24 04/21/2023 LIPID PANEL triglyceride 104 mg/dL <150 Not Available [facility] (Lab) [address] [place], [address], 04/21/2023 10:05:24 04/21/19 24 04/21/2023 LIPID PANEL HDL cholesterol 62 mg/dL >40.0 Not Available [facility] (Lab) [address] [place], [address], 04/21/2023 10:05:24 04/21/19 24 04/21/2023 LIPID PANEL LDL calculated 148 mg/dL <100 high Not Available [facility] (Lab) [address] [place], [address], 04/21/2023 10:05:24 04/21/19 24 04/21/2023 LIPID PANEL non HDL cholesterol 169 mg/dL <130 high Not Available [facility] (Lab) [address] [place], [address], 04/21/2023 10:05:24 04/21/19 24 04/21/2023 LIPID PANEL chol/HDL ratio 3.7 0.0-4. 5 Not Available [facility] (Lab) [address] [place], [address], 04/21/2023 10:05:24 04/21/19 24 04/21/2023 LIPID PANEL VLDL 21 mg/dL 5-55 Not Available [facility] (Lab) [address] [place], [address], 04/21/2023 10:05:24 04/21/19 24 04/21/2023 LIPID PANEL interpretati on NIH JANNA NSUS REPOR T RECOM MENDA TIONS : ADULT CHILD LOW RISK: BRE STERO L <200 <170 TRIGL YCERI DE <150 --- HDL >=60 --- LDL <100 <110 BORDE RLINE : BRE STERO L 200-2 39 170-1 99 TRIGL YCERI DE 150-1 99 --- HDL 40-59 --- LDL 100-1 59 110-1 29 HIGH RISK: BRE STERO L >=240 >=200 TRIGL YCERI DE >=200 --- HDL <40 --- LDL >=160 >=130 Not Available [facility] (Lab) [address] [place] [address], [address], 04/21/2023 10:05:24 06/16/19 24 06/16/2023 CBC W/ DIFFE RENTI AL WBC 4.35 x10'3 /uL 4.4-11 .0 low Not Available [facility] (Lab) [address] [place] [address], [address], 06/16/2023 09:58:47 06/16/19 24 06/16/2023 CBC W/ DIFFE RENTI AL RBC 4.99 x10'6 /uL 4.50-5 .10 Not Available [facility] (Lab) [address] [place] [address], [address], 06/16/2023 09:58:47 06/16/19 24 06/16/2023 CBC W/ DIFFE RENTI AL hemoglobin 15.1 g/dL 12.3-1 5.3 Not Available [facility] (Lab) [address] [place] [address], 87[address], 06/16/2023 09:58:47 06/16/19 24 06/16/2023 CBC W/ DIFFE RENTI AL hematocrit 46.2 % 35.9-4 4.6 high Not Available [facility] (Lab) [address] [place] [address], 8[address], 06/16/2023 09:58:47 06/16/19 24 06/16/2023 CBC W/ DIFFE RENTI AL MCV 92.6 fL 80.0-9 6.0 Not Available [facility] (Lab) [address] [place] [address], [address], 06/16/2023 09:58:47 06/16/19 24 06/16/2023 CBC W/ DIFFE RENTI AL MCH 30.3 pg 25.3-3 0.9 Not Available [facility] (Lab) [address] [place], [address], 06/16/2023 09:58:47 06/16/19 24 06/16/2023 CBC W/ DIFFE RENTI AL MCHC 32.7 g/dL 31.0-3 4.1 Not Available [facility] (Lab) [address] [place] [address], 97[address], 06/16/2023 09:58:47 06/16/19 24 06/16/2023 CBC W/ DIFFE RENTI AL RDW 14.0 % 12.4-1 5.1 Not Available [facility] (Lab) [address] [place] [address], [address], 06/16/2023 09:58:47 06/16/19 24 06/16/2023 CBC W/ DIFFE RENTI AL platelet count 234 x10'3 /uL 151-35 3 Not Available [facility] (Lab) [address] [place] [address], 6[address], 06/16/2023 09:58:47 06/16/19 24 06/16/2023 CBC W/ DIFFE RENTI AL MPV 8.9 fL 9.6-12 .0 low Not Available [facility] (Lab) [address] [place] [address], [address], 06/16/2023 09:58:47 06/16/19 24 06/16/2023 CBC W/ DIFFE RENTI AL RBC morphology NORMAL Not Available [facility] (Lab) [address] [place], [address], 06/16/2023 09:58:47 06/16/19 24 06/16/2023 CBC W/ DIFFE RENTI AL platelet evaluation NORMAL Not Available [facility] (Lab) [address] [place] [address], [address], 06/16/2023 09:58:47 06/16/19 24 06/16/2023 CBC W/ DIFFE RENTI AL WBC morphology NORMAL Not Available [facility] (Lab) [address] [place] [address], 80187, 06/16/2023 09:58:47 06/16/19 24 06/16/2023 CBC W/ DIFFE RENTI AL lymphocytes 31.0 % 15.8-4 5.0 Not Available [facility] (Lab) [address] [place] [address], 35468, 06/16/2023 09:58:47 06/16/19 24 06/16/2023 CBC W/ DIFFE RENTI AL neutrophils 49.2 % 42.1-7 1.9 Not Available [facility] (Lab) [address] [place] [address], 03170, 06/16/2023 09:58:47 06/16/19 24 06/16/2023 CBC W/ DIFFE RENTI AL monocytes 14.3 % 5.7-12 .5 high Not Available [facility] (Lab) [address] [place] [address], 18133, 06/16/2023 09:58:47 06/16/19 24 06/16/2023 CBC W/ DIFFE RENTI AL eosinophils 4.4 % 0.0-5. 6 Not Available [facility] (Lab) [address] [place] [address], 79297, 06/16/2023 09:58:47 06/16/19 24 06/16/2023 CBC W/ DIFFE RENTI AL basophils 0.9 % 0.0-1. 3 Not Available [facility] (Lab) [address] [place] [address], 83719, 06/16/2023 09:58:47 06/16/19 24 06/16/2023 CBC W/ DIFFE RENTI AL abs. neutrophils 2.14 x10'3 /uL 1.40-6 .00 Not Available [facility] (Lab) [address] [place] [address], 85195, 06/16/2023 09:58:47 06/16/19 24 06/16/2023 CBC W/ DIFFE RENTI AL immature granulocytes 0.2 % 0.0-0. 5 Not Available [facility] (Lab) [address] [place] [address], 46522, 06/16/2023 09:58:47 06/16/19 24 06/16/2023 CBC W/ DIFFE RENTI AL abs. lymphocytes 1.35 x10'3 /uL 0.80-4 .70 Not Available [facility] (Lab) [address] [place] [address], 21672, 06/16/2023 09:58:47 06/16/19 24 06/16/2023 BASIC METAB OLIC PANEL glucose 98 mg/dL 70-99 Not Available [facility] (Lab) [address] [place] [address], 55354, 06/16/2023 10:13:21 06/16/19 24 06/16/2023 BASIC METAB OLIC PANEL BUN 20 mg/dL 7-18 high Not Available [facility] (Lab) [address] [place] [address], 11459, 06/16/2023 10:13:21 06/16/19 24 06/16/2023 BASIC METAB OLIC PANEL creatinine 0.99 mg/dL 0.55-1 .02 Not Available [facility] (Lab) [address] [place] [address], 09381, 06/16/2023 10:13:21 06/16/19 24 06/16/2023 BASIC METAB OLIC PANEL sodium 136 mmol/ L 136-14 5 Not Available [facility] (Lab) [address] [place] [address], 86853, 06/16/2023 10:13:21 06/16/19 24 06/16/2023 BASIC METAB OLIC PANEL potassium 3.9 mmol/ L 3.5-5. 1 Not Available [facility] (Lab) [employer] [place], [address], 06/16/2023 10:13:21 06/16/19 24 06/16/2023 BASIC METAB OLIC PANEL chloride 100 mmol/ L 100-10 8 Not Available [facility] (Lab) [address] [place] [address], 11865, 06/16/2023 10:13:21 06/16/19 24 06/16/2023 BASIC METAB OLIC PANEL total CO2 28.8 mmol/ L 21-32 Not Available [facility] (Lab) [address] [place] [address], 06129, 06/16/2023 10:13:21 06/16/19 24 06/16/2023 BASIC METAB OLIC PANEL calcium 9.4 mg/dL 8.5-10 .1 Not Available [facility] (Lab) [employer] [place], [address], 06/16/2023 10:13:21 06/16/19 24 06/16/2023 BASIC METAB OLIC PANEL anion gap 7.2 mmol/ L 5-15 Not Available [facility] (Lab) [address] [place] [address], 22561, 06/16/2023 10:13:21 06/16/19 24 06/16/2023 BASIC METAB OLIC PANEL BUN creatinine ratio 20.2 6-26 Not Available [facility] (Lab) [address] [place] [address], 30837, 06/16/2023 10:13:21 06/16/19 24 06/16/2023 BASIC METAB OLIC PANEL est GFR 63 mL/mi n/1.7 3_M2 >90 low NOTE: eGFR is not calcu lated for patie nts <18 years of age. This is an estim ated GFR calcu latio n using the new CKD EPI creat inine equat ion witho ut race and so does not requi re a corre ction facto r for race. This estim ated GFR shoul d not be used for calcu latin g drug doses . Not Available [facility] (Lab) [employer] [facility], [place], [address], 06/16/2023 10:13:21 06/16/19 24 06/16/2023 CBC W Auto Diffe renti al panel - Blood leukocytes [#/volume] in blood by automated count 4.35 text: 4.4 - 11.0 x10'3/ uL low WBC 4.35 (L) 4.4 - 11.0 x10'3 /uL 06/15 8:58 AM CDT [facility] Not Available Not Available 06/14/2024 16:56:55 06/16/19 24 06/16/2023 CBC W Auto Diffe renti al panel - Blood erythrocytes [#/volume] in blood by automated count 4.99 text: 4.50 - 5.10 x10'6/ uL RBC 4.99 4.50 - 5.10 x10'6 /uL 06/15 8:58 AM CDT [facility] Not Available Not Available 06/14/2024 16:56:55 06/16/19 24 06/16/2023 CBC W Auto Diffe renti al panel - Blood hemoglobin [mass/volume ] in blood 15.1 text: 12.3 - 15.3 g/dL HGB 15.1 12.3 - 15.3 G/DL 06/15 8:58 AM CDT [facility] Not Available Not Available 06/14/2024 16:56:55 06/16/19 24 06/16/2023 CBC W Auto Diffe renti al panel - Blood hematocrit [volume fraction] of blood 46.2 % low: 35.9%h igh: 44.6% high HCT 46.2 (H) 35.9 - 44.6 % 06/15 8:58 AM CDT [facility] Not Available Not Available 06/14/2024 16:56:55 06/16/19 24 06/16/2023 CBC W Auto Diffe renti al panel - Blood MCV [entitic volume] 92.6 text: 80.0 - 96.0 fL MCV 92.6 80.0 - 96.0 FL 06/15 8:58 AM CDT [facility] () [facility] Not Available Not Available 06/14/2024 16:56:55 06/16/19 24 06/16/2023 CBC W Auto Diffe renti al panel - Blood MCH [entitic mass] 30.3 pg low: 25.3pg high: 30.9pg MCH 30.3 25.3 - 30.9 PG 06/15 8:58 AM CDT [facility] () [facility] Not Available Not Available 06/14/2024 16:56:55 06/16/19 24 06/16/2023 CBC W Auto Diffe renti al panel - Blood MCHC [mass/volume ] 32.7 text: 31.0 - 34.1 g/dL MCHC 32.7 31.0 - 34.1 G/DL 06/15 8:58 AM CDT [facility] Not Available Not Available 06/14/2024 16:56:55 06/16/19 24 06/16/2023 CBC W Auto Diffe renti al panel - Blood erythrocyte distribution width [entitic volume] by automated count 14 % low: 12.4%h igh: 15.1% RDW 14.0 12.4 - 15.1 % 06/15 8:58 AM CDT [facility] Not Available Not Available 06/14/2024 16:56:55 06/16/19 24 06/16/2023 CBC W Auto Diffe renti al panel - Blood platelets [#/volume] in blood 234 text: 151 - 353 x10'3/ uL PLT 234 151 - 353 x10'3 /uL 06/15 8:58 AM CDT [facility] Not Available Not Available 06/14/2024 16:56:55 06/16/19 24 06/16/2023 CBC W Auto Diffe renti al panel - Blood platelet mean volume [entitic volume] in blood 8.9 text: 9.6 - 12.0 fL low MPV 8.9 (L) 9.6 - 12.0 FL 06/15 8:58 AM CDT [facility] Not Available Not Available 06/14/2024 16:56:55 06/16/19 24 06/16/2023 CBC W Auto Diffe renti al panel - Blood erythrocytes [morphology] in blood by automated count NORMAL RBC MORPH OLOGY BREANA L 06/15 8:58 AM CDT [facility] Not Available Not Available 06/14/2024 16:56:55 06/16/19 24 06/16/2023 CBC W Auto Diffe renti al panel - Blood platelet morphology finding [identifier] in blood NORMAL PLT MORPH . BREANA L 06/15 8:58 AM CDT [facility] Not Available Not Available 06/14/2024 16:56:55 06/16/19 24 06/16/2023 CBC W Auto Diffe renti al panel - Blood leukocyte morphology finding [identifier] in blood NORMAL WBC MORPH OLOGY BREANA L 06/15 8:58 AM CDT [facility] Not Available Not Available 06/14/2024 16:56:55 06/16/19 24 06/16/2023 CBC W Auto Diffe renti al panel - Blood lymphocytes/ 100 leukocytes in blood by automated count 31 % low: 15.8%h igh: 45% LYMPH OCYTE S 31.0 15.8 - 45.0 % 06/15 8:58 AM CDT [facility] Not Available Not Available 06/14/2024 16:56:55 06/16/19 24 06/16/2023 CBC W Auto Diffe renti al panel - Blood neutrophils/ 100 leukocytes in blood by automated count 49.2 % low: 42.1%h igh: 71.9% NEUTR OPHIL S 49.2 42.1 - 71.9 % 06/15 8:58 AM CDT [facility] () [facility] Not Available Not Available 06/14/2024 16:56:55 06/16/19 24 06/16/2023 CBC W Auto Diffe renti al panel - Blood monocytes/10 0 leukocytes in blood by automated count 14.3 % low: 5.7%hi gh: 12.5% high MONOC YTES 14.3 (H) 5.7 - 12.5 % 06/15 8:58 AM CDT [facility] () [facility] Not Available Not Available 06/14/2024 16:56:55 06/16/19 24 06/16/2023 CBC W Auto Diffe renti al panel - Blood eosinophils/ 100 leukocytes in blood by automated count 4.4 % low: 0%high : 5.6% EOSIN OPHIL S 4.4 0.0 - 5.6 % 06/15 8:58 AM CDT [facility] () [facility] Not Available Not Available 06/14/2024 16:56:55 06/16/19 24 06/16/2023 CBC W Auto Diffe renti al panel - Blood basophils/10 0 leukocytes in blood by automated count 0.9 % low: 0%high : 1.3% BASOP HILS 0.9 0.0 - 1.3 % 06/15 8:58 AM [facility]T [facility] Not Available Not Available 06/14/2024 16:56:55 06/16/19 24 06/16/2023 CBC W Auto Diffe renti al panel - Blood neutrophils [#/volume] in blood 2.14 text: 1.40 - 6.00 x10'3/ uL ABS. NEUTR OPHIL S 2.14 1.40 - 6.00 x10'3 /uL 06/15 8:58 AM CDT [facility] Not Available Not Available 06/14/2024 16:56:55 06/16/19 24 06/16/2023 CBC W Auto Diffe renti al panel - Blood immature granulocytes /100 leukocytes in blood by automated count 0.2 % low: 0%high : 0.5% IMMAT URE GRANS 0.2 0.0 - 0.5 % 06/15 8:58 AM CDT [facility] Not Available Not Available 06/14/2024 16:56:55 06/16/19 24 06/16/2023 CBC W Auto Diffe renti al panel - Blood lymphocytes [#/volume] in blood 1.35 text: 0.80 - 4.70 x10'3/ uL ABS. LYMPH OCYTE S 1.35 0.80 - 4.70 x10'3 /uL 06/15 8:58 AM CDT [facility] ([facility] Not Available Not Available 06/14/2024 16:56:55 06/16/19 24 06/16/2023 CBC W Auto Diffe renti al panel - Blood interpretati on and review of laboratory results Abnorm al Not Available Not Available 16:56:55 06/16/19 24 06/16/2023 Basic metab olic 2000 panel - Serum or Plasm a glucose [mass/volume ] in serum or plasma 98 text: 70 - 99 mg/dL GLUCO SE 98 70 - 99 MG/DL 06/15 9:13 AM CDT [facility] ([facility] Not Available Not Available 06/14/2024 16:56:55 06/16/19 24 06/16/2023 Basic metab olic 2000 panel - Serum or Plasm a urea nitrogen [mass/volume ] in serum or plasma 20 text: 7 - 18 mg/dL high BUN 20 (H) 7 - 18 MG/DL 06/15 9:13 AM CDT [facility] Not Available Not Available 06/14/2024 16:56:55 06/16/19 24 06/16/2023 Basic metab olic 2000 panel - Serum or Plasm a creatinine [mass/volume ] in serum or plasma 0.99 text: 0.55 - 1.02 mg/dL CREAT ININE S/P/B 0.99 0.55 - 1.02 MG/DL 06/15 9:13 AM T [facility] () [facility] Not Available Not Available 06/14/2024 16:56:55 06/16/19 24 06/16/2023 Basic metab olic 2000 panel - Serum or Plasm a sodium [moles/volum e] in serum or plasma 136 text: 136 - 145 mmol/L SODIU M S/P/B 136 136 - 145 MMOL/ L 06/15 9:13 AM T [facility] () [facility] Not Available Not Available 06/14/2024 16:56:55 06/16/19 24 06/16/2023 Basic metab olic 2000 panel - Serum or Plasm a potassium [moles/volum e] in serum or plasma 3.9 text: 3.5 - 5.1 mmol/L POTAS SIUM S/P/B 3.9 3.5 - 5.1 MMOL/ L 06/15 9:13 AM T [facility] () [facility] Not Available Not Available 06/14/2024 16:56:55 06/16/19 24 06/16/2023 Basic metab olic 2000 panel - Serum or Plasm a chloride [moles/volum e] in serum or plasma 100 text: 100 - 108 mmol/L CHLOR NAT S/P/B 100 100 - 108 MMOL/ L 06/15 9:13 AM T [facility] Not Available Not Available 06/14/2024 16:56:55 06/16/19 24 06/16/2023 Basic metab olic 2000 panel - Serum or Plasm a carbon dioxide, total [moles/volum e] in serum or plasma 28.8 text: 21 - 32 mmol/L CO2 28.8 21 - 32 MMOL/ L 06/15 9:13 AM CDT [facility] Not Available Not Available 06/14/2024 16:56:55 06/16/1906/16/2023 Basic metab olic 2000 panel - Serum or Plasm a calcium [mass/volume ] in serum or plasma 9.4 text: 8.5 - 10.1 mg/dL CALCI UM S/P/B 9.4 8.5 - 10.1 MG/DL 06/15 9:13 AM CDT [facility] Not Available Not Available 06/14/2024 16:56:55 06/16/19 24 06/16/2023 Basic metab olic 2000 panel - Serum or Plasm a anion gap in serum or plasma 7.2 text: 5 - 15 mmol/L ANION GAP 7.2 5 - 15 MMOL/ L 06/15 9:13 AM CDT [facility] Not Available Not Available 06/14/2024 16:56:55 06/16/19 24 06/16/2023 Basic metab olic 2000 panel - Serum or Plasm a urea nitrogen/cre atinine [mass ratio] in serum or plasma 20.2 low: 6high: 26 BUN CREAT ININE RATIO 20.2 6 - 26 06/15 9:13 AM CDT [facility] Not Available Not Available 06/14/2024 16:56:55 06/16/19 24 06/16/2023 Basic metab olic 2000 panel - Serum or Plasm a glomerular filtration rate/1.73 sq M.predicted [volume rate/area] in serum, plasma or blood by creatinine-b ased formula (CKD-epi 2020) 63 text: >90 mL/min /1.73 M2 low GFR ESTIM ATE 63 (L) >90 ML/FL N/1.7 3 M2 06/15 9:13 AM CDT [facility] Not Available Not Available 06/14/2024 16:56:55 06/16/19 24 06/16/2023 Basic metab olic 2000 panel - Serum or Plasm a interpretati on and review of laboratory results Abnorm al Not Available Not Available 16:56:55 09/18/19 24 09/18/2023 CBC W/ DIFFE RENTI AL WBC 5.54 x10'3 /uL 4.4-11 .0 Not Available [facility] (Lab) [address] [place] [address], [id number], 09/18/2023 11:10:59 09/18/19 24 09/18/2023 CBC W/ DIFFE RENTI AL RBC 4.86 x10'6 /uL 4.50-5 .10 Not Available [facility] (Lab) [address] [place] [address], [id number], 09/18/2023 11:10:59 09/18/19 24 09/18/2023 CBC W/ DIFFE RENTI AL hemoglobin 14.4 g/dL 12.3-1 5.3 Not Available [facility] (Lab) [address] [place] [address], [id number], 09/18/2023 11:10:59 09/18/19 24 09/18/2023 CBC W/ DIFFE RENTI AL hematocrit 44.5 % 35.9-4 4.6 Not Available [facility] (Lab) [address] [place] [address], [id number], 09/18/2023 11:10:59 09/18/19 24 09/18/2023 CBC W/ DIFFE RENTI AL MCV 91.6 fL 80.0-9 6.0 Not Available [facility] (Lab) [address] [place] [address], [id number], 09/18/2023 11:10:59 09/18/19 24 09/18/2023 CBC W/ DIFFE RENTI AL MCH 29.6 pg 25.3-3 0.9 Not Available [facility] (Lab) [address] [place], [address], 09/18/2023 11:10:59 09/18/19 24 09/18/2023 CBC W/ DIFFE RENTI AL MCHC 32.4 g/dL 31.0-3 4.1 Not Available [facility] (Lab) [address] [place], [address], 09/18/2023 11:10:59 09/18/19 24 09/18/2023 CBC W/ DIFFE RENTI AL RDW 14.6 % 12.4-1 5.1 Not Available [facility] (Lab) [address] [place] [address], [id number], 09/18/2023 11:10:59 09/18/19 24 09/18/2023 CBC W/ DIFFE RENTI AL platelet count 253 x10'3 /uL 151-35 3 Not Available [facility] (Lab) [address] [place], [address], 09/18/2023 11:10:59 09/18/19 24 09/18/2023 CBC W/ DIFFE RENTI AL MPV 9.0 fL 9.6-12 .0 low Not Available [facility] (Lab) [address] [place], [address], 09/18/2023 11:10:59 09/18/19 24 09/18/2023 CBC W/ DIFFE RENTI AL RBC morphology NORMAL Not Available [facility] (Lab) [address] [place], [address], 09/18/2023 11:10:59 09/18/19 24 09/18/2023 CBC W/ DIFFE RENTI AL platelet evaluation NORMAL Not Available [facility] (Lab) [address] [place], [address], 09/18/2023 11:10:59 09/18/19 24 09/18/2023 CBC W/ DIFFE RENTI AL WBC morphology NORMAL Not Available [facility] (Lab) [address] [place], [address], 09/18/2023 11:10:59 09/18/19 24 09/18/2023 CBC W/ DIFFE RENTI AL lymphocytes 24.2 % 15.8-4 5.0 Not Available [facility] (Lab) [address] [place] [address], [id number], 09/18/2023 11:10:59 09/18/19 24 09/18/2023 CBC W/ DIFFE RENTI AL neutrophils 58.5 % 42.1-7 1.9 Not Available [facility] (Lab) [address] [place] [address], [id number], 09/18/2023 11:10:59 09/18/19 24 09/18/2023 CBC W/ DIFFE RENTI AL monocytes 12.8 % 5.7-12 .5 high Not Available [facility] (Lab) [address] [place] [address], [id number], 09/18/2023 11:10:59 09/18/19 24 09/18/2023 CBC W/ DIFFE RENTI AL eosinophils 3.1 % 0.0-5. 6 Not Available [facility] (Lab) [address] [place], [address], 09/18/2023 11:10:59 09/18/19 24 09/18/2023 CBC W/ DIFFE RENTI AL basophils 0.9 % 0.0-1. 3 Not Available [facility] (Lab) [address] [place] [address], [id number], 09/18/2023 11:10:59 09/18/19 24 09/18/2023 CBC W/ DIFFE RENTI AL abs. neutrophils 3.24 x10'3 /uL 1.40-6 .00 Not Available [facility] (Lab) [address] [place], [address], 09/18/2023 11:10:59 09/18/19 24 09/18/2023 CBC W/ DIFFE RENTI AL immature granulocytes 0.5 % 0.0-0. 5 Not Available [facility] (Lab) [address] [place] [address], [id number], 09/18/2023 11:10:59 09/18/19 24 09/18/2023 CBC W/ DIFFE RENTI AL abs. lymphocytes 1.34 x10'3 /uL 0.80-4 .70 Not Available [facility] (Lab) [address] [place] [address], [id number], 09/18/2023 11:10:59 09/18/19 24 09/18/2023 BASIC METAB OLIC PANEL glucose 115 mg/dL 70-99 high Not Available [facility] (Lab) [address] [place] [address], [id number], 09/18/2023 11:27:15 09/18/19 24 09/18/2023 BASIC METAB OLIC PANEL BUN 23 mg/dL 7-18 high Not Available [facility] (Lab) [address] [place], [address], 09/18/2023 11:27:15 09/18/19 24 09/18/2023 BASIC METAB OLIC PANEL creatinine 1.03 mg/dL 0.55-1 .02 high Not Available [facility] (Lab) [address] [place] [address], [id number], 09/18/2023 11:27:15 09/18/19 24 09/18/2023 BASIC METAB OLIC PANEL sodium 136 mmol/ L 136-14 5 Not Available [facility] (Lab) [address] [place] [address], [id number], 09/18/2023 11:27:15 06/27/20 24 09/18/2023 BASIC METAB OLIC PANEL potassium 4.7 mmol/ L 3.5-5. 1 Not Available [facility] (Lab) [address] [place], [address], 09/18/2023 11:27:15 09/18/19 24 09/18/2023 BASIC METAB OLIC PANEL chloride 98 mmol/ L 100-10 8 low Not Available [facility] (Lab) [address] [place], [address], 09/18/2023 11:27:15 09/18/19 24 09/18/2023 BASIC METAB OLIC PANEL total CO2 30.8 mmol/ L 21-32 Not Available [facility] (Lab) [address] [place], [address], 09/18/2023 11:27:15 09/18/19 24 09/18/2023 BASIC METAB OLIC PANEL calcium 9.3 mg/dL 8.5-10 .1 Not Available [facility] (Lab) [address] [place], [address], 09/18/2023 11:27:15 09/18/19 24 09/18/2023 BASIC METAB OLIC PANEL anion gap 7.2 mmol/ L 5-15 Not Available [facility] (Lab) [address] [place], [address], 09/18/2023 11:27:15 09/18/19 24 09/18/2023 BASIC METAB OLIC PANEL BUN creatinine ratio 22.3 6-26 Not Available [facility] (Lab) [address] [place], [address], 09/18/2023 11:27:15 09/18/19 24 09/18/2023 BASIC METAB OLIC PANEL est GFR 60 mL/mi n/1.7 3_M2 >90 low NOTE: eGFR is not calcu lated for patie nts <18 years of age. This is an estim ated GFR calcu latio n using the new CKD EPI creat inine equat ion witho ut race and so does not requi re a corre ction facto r for race. This estim ated GFR shoul d not be used for calcu latin g drug doses . Not Available [facility] (Lab) [address] [place], [address], 09/18/2023 11:27:15 09/18/19 24 09/18/2023 LIPID PANEL cholesterol 218 mg/dL <200.0 high Not Available [facility] (Lab) [address] [place], [address], 09/18/2023 11:27:19 09/18/19 24 09/18/2023 LIPID PANEL triglyceride 103 mg/dL <150 Not Available [facility] (Lab) [address] [place], [address], 09/18/2023 11:27:19 09/18/19 24 09/18/2023 LIPID PANEL HDL cholesterol 60 mg/dL >40.0 Not Available [facility] (Lab) [address] [place], [address], 09/18/2023 11:27:19 09/18/19 24 09/18/2023 LIPID PANEL LDL calculated 137 mg/dL <100 high Not Available [facility] (Lab) [address] [place], [address], 09/18/2023 11:27:19 09/18/19 24 09/18/2023 LIPID PANEL non HDL cholesterol 158 mg/dL <130 high Not Available [facility] (Lab) [address] [place], [address], 09/18/2023 11:27:19 09/18/19 24 09/18/2023 LIPID PANEL chol/HDL ratio 3.6 0.0-4. 5 Not Available [facility] (Lab) [address] [place], [address], 09/18/2023 11:27:19 09/18/19 24 09/18/2023 LIPID PANEL VLDL 21 mg/dL 5-55 Not Available [facility] (Lab) [address] [place], [address], 09/18/2023 11:27:19 09/18/19 24 09/18/2023 LIPID PANEL interpretati on NIH JANNA NSUS REPOR T RECOM MENDA TIONS : ADULT CHILD LOW RISK: BRE STERO L <200 <170 TRIGL YCERI DE <150 --- HDL >=60 --- LDL <100 <110 BORDE RLINE : BRE STERO L 200-2 39 170-1 99 TRIGL YCERI DE 150-1 99 --- HDL 40-59 --- LDL 100-1 59 110-1 29 HIGH RISK: BRE STERO L >=240 >=200 TRIGL YCERI DE >=200 --- HDL <40 --- LDL >=160 >=130 Not Available [facility] (Lab) [address] [place], [address], 09/18/2023 11:27:19 09/18/19 24 09/18/2023 Bre stero l in LDL [Mass /volu me] in Serum or Plasm a by Direc t assay cholesterol in LDL [mass/volume ] in serum or plasma by direct assay 137 text: <100 mg/dL high DIREC T LDL 137 (H) <100 MG/DL 09/17 10:27 AM CDT [facility] Not Available Not Available 06/08/2024 03:45:24 09/18/19 24 09/18/2023 Bre stero l in LDL [Mass /volu me] in Serum or Plasm a by Direc t assay interpretati on and review of laboratory results ABNORM AL Not Available Not Available 03:45:24 09/18/19 24 09/18/2023 CBC W Auto Diffe renti al panel - Blood leukocytes [#/volume] in blood by automated count 5.54 text: 4.4 - 11.0 x10'3/ uL WBC 5.54 4.4 - 11.0 x10'3 /uL 09/17 10:10 AM CDT [facility] Not Available Not Available 06/08/2024 03:45:24 09/18/19 24 09/18/2023 CBC W Auto Diffe renti al panel - Blood erythrocytes [#/volume] in blood by automated count 4.86 text: 4.50 - 5.10 x10'6/ uL RBC 4.86 4.50 - 5.10 x10'6 /uL 09/17 10:10 AM CDT [facility] Not Available Not Available 06/08/2024 03:45:24 09/18/19 24 09/18/2023 CBC W Auto Diffe renti al panel - Blood hemoglobin [mass/volume ] in blood 14.4 text: 12.3 - 15.3 g/dL HGB 14.4 12.3 - 15.3 G/DL 09/17 10:10 AM CDT [facility] Not Available Not Available 06/08/2024 03:45:24 09/18/19 24 09/18/2023 CBC W Auto Diffe renti al panel - Blood hematocrit [volume fraction] of blood 44.5 % low: 35.9%h igh: 44.6% HCT 44.5 35.9 - 44.6 % 09/17 10:10 AM CDT [facility] Not Available Not Available 06/08/2024 03:45:24 09/18/19 24 09/18/2023 CBC W Auto Diffe renti al panel - Blood MCV [entitic volume] 91.6 text: 80.0 - 96.0 fL MCV 91.6 80.0 - 96.0 FL 09/17 10:10 AM CDT [facility] Not Available Not Available 06/08/2024 03:45:24 09/18/19 24 09/18/2023 CBC W Auto Diffe renti al panel - Blood MCH [entitic mass] 29.6 pg low: 25.3pg high: 30.9pg MCH 29.6 25.3 - 30.9 PG 09/17 10:10 AM CDT [facility] Not Available Not Available 06/08/2024 03:45:24 09/18/19 24 09/18/2023 CBC W Auto Diffe renti al panel - Blood MCHC [mass/volume ] 32.4 text: 31.0 - 34.1 g/dL MCHC 32.4 31.0 - 34.1 G/DL 09/17 10:10 AM CDT [facility] Not Available Not Available 06/08/2024 03:45:24 09/18/19 24 09/18/2023 CBC W Auto Diffe renti al panel - Blood erythrocyte distribution width [entitic volume] by automated count 14.6 % low: 12.4%h igh: 15.1% RDW 14.6 12.4 - 15.1 % 09/17 10:10 AM CDT [facility] Not Available Not Available 06/08/2024 03:45:24 09/18/19 24 09/18/2023 CBC W Auto Diffe renti al panel - Blood platelets [#/volume] in blood 253 text: 151 - 353 x10'3/ uL PLT 253 151 - 353 x10'3 /uL 09/17 10:10 AM CDT [facility] Not Available Not Available 06/08/2024 03:45:24 09/18/19 24 09/18/2023 CBC W Auto Diffe renti al panel - Blood platelet mean volume [entitic volume] in blood 9 text: 9.6 - 12.0 fL low MPV 9.0 (L) 9.6 - 12.0 FL 09/17 10:10 AM CDT [facility] Not Available Not Available 06/08/2024 03:45:24 09/18/19 24 09/18/2023 CBC W Auto Diffe renti al panel - Blood erythrocytes [morphology] in blood by automated count NORMAL RBC MORPH OLOGY BREANA L 09/17 10:10 AM CDT [facility] Not Available Not Available 06/08/2024 03:45:24 09/18/19 24 09/18/2023 CBC W Auto Diffe renti al panel - Blood platelet morphology finding [identifier] in blood NORMAL PLT MORPH . BREANA L 09/17 10:10 AM CDT [facility] Not Available Not Available 06/08/2024 03:45:24 09/18/19 24 09/18/2023 CBC W Auto Diffe renti al panel - Blood leukocyte morphology finding [identifier] in blood NORMAL WBC MORPH OLOGY BREANA L 09/17 10:10 AM CDT [facility] Not Available Not Available 06/08/2024 03:45:24 09/18/19 24 09/18/2023 CBC W Auto Diffe renti al panel - Blood lymphocytes/ 100 leukocytes in blood by automated count 24.2 % low: 15.8%h igh: 45% LYMPH OCYTE S % 24.2 15.8 - 45.0 % 09/17 10:10 AM CDT [facility] Not Available Not Available 06/08/2024 03:45:24 09/18/19 24 09/18/2023 CBC W Auto Diffe renti al panel - Blood neutrophils/ 100 leukocytes in blood by automated count 58.5 % low: 42.1%h igh: 71.9% NEUTR OPHIL S % 58.5 42.1 - 71.9 % 09/17 10:10 AM CDT [facility] Not Available Not Available 06/08/2024 03:45:24 09/18/19 24 09/18/2023 CBC W Auto Diffe renti al panel - Blood monocytes/10 0 leukocytes in blood by automated count 12.8 % low: 5.7%hi gh: 12.5% high MONOC YTES % 12.8 (H) 5.7 - 12.5 % 09/17 10:10 AM CDT [facility] () [facility] Not Available Not Available 06/08/2024 03:45:24 09/18/19 24 09/18/2023 CBC W Auto Diffe renti al panel - Blood eosinophils/ 100 leukocytes in blood by automated count 3.1 % low: 0%high : 5.6% EOSIN OPHIL S 3.1 0.0 - 5.6 % 09/17 10:10 AM CDT [facility] () [facility] Not Available Not Available 06/08/2024 03:45:24 09/18/19 24 09/18/2023 CBC W Auto Diffe renti al panel - Blood basophils/10 0 leukocytes in blood by automated count 0.9 % low: 0%high : 1.3% BASOP HILS 0.9 0.0 - 1.3 % 09/17 10:10 AM CDT [facility] () [facility] Not Available Not Available 06/08/2024 03:45:24 09/18/19 24 09/18/2023 CBC W Auto Diffe renti al panel - Blood neutrophils [#/volume] in blood 3.24 text: 1.40 - 6.00 x10'3/ uL ABS. NEUTR OPHIL S 3.24 1.40 - 6.00 x10'3 /uL 09/17 10:10 AM CDT [facility] () [facility] Not Available Not Available 06/08/2024 03:45:24 09/18/19 24 09/18/2023 CBC W Auto Diffe renti al panel - Blood immature granulocytes /100 leukocytes in blood by automated count 0.5 % low: 0%high : 0.5% IMMAT URE GRANS % 0.5 0.0 - 0.5 % 09/17 10:10 AM CDT [facility] Not Available Not Available 06/08/2024 03:45:24 09/18/19 24 09/18/2023 CBC W Auto Diffe renti al panel - Blood lymphocytes [#/volume] in blood 1.34 text: 0.80 - 4.70 x10'3/ uL ABS. LYMPH OCYTE S 1.34 0.80 - 4.70 x10'3 /uL 09/17 10:10 AM CDT [facility] Not Available Not Available 06/08/2024 03:45:24 09/18/19 24 09/18/2023 CBC W Auto Diffe renti al panel - Blood interpretati on and review of laboratory results ABNORM AL Not Available Not Available 03:45:24 09/18/19 24 09/18/2023 Basic metab olic 2000 panel - Serum or Plasm a glucose [mass/volume ] in serum or plasma 115 text: 70 - 99 mg/dL high GLUCO SE 115 (H) 70 - 99 MG/DL 09/17 10:27 AM T [facility] Not Available Not Available 06/08/2024 03:45:24 09/18/19 24 09/18/2023 Basic metab olic 2000 panel - Serum or Plasm a urea nitrogen [mass/volume ] in serum or plasma 23 text: 7 - 18 mg/dL high BUN 23 (H) 7 - 18 MG/DL 09/17 10:27 AM T [facility] Not Available Not Available 06/08/2024 03:45:24 09/18/19 24 09/18/2023 Basic metab olic 2000 panel - Serum or Plasm a creatinine [mass/volume ] in serum or plasma 1.03 text: 0.55 - 1.02 mg/dL high CREAT ININE S/P/B 1.03 (H) 0.55 - 1.02 MG/DL 09/17 10:27 AM CDT [facility] Not Available Not Available 06/08/2024 03:45:24 06/27/20 24 09/18/2023 Basic metab olic 2000 panel - Serum or Plasm a sodium [moles/volum e] in serum or plasma 136 text: 136 - 145 mmol/L SODIU M S/P/B 136 136 - 145 MMOL/ L 09/17 10:27 AM CDT [facility] Not Available Not Available 06/08/2024 03:45:24 09/18/19 24 09/18/2023 Basic metab olic 2000 panel - Serum or Plasm a potassium [moles/volum e] in serum or plasma 4.7 text: 3.5 - 5.1 mmol/L POTAS SIUM S/P/B 4.7 3.5 - 5.1 MMOL/ L 09/17 10:27 AM CDT [facility] Not Available Not Available 06/08/2024 03:45:24 09/18/19 24 09/18/2023 Basic metab olic 2000 panel - Serum or Plasm a chloride [moles/volum e] in serum or plasma 98 text: 100 - 108 mmol/L low CHLOR NAT S/P/B 98 (L) 100 - 108 MMOL/ L 09/17 10:27 AM CDT [facility] Not Available Not Available 06/08/2024 03:45:24 09/18/19 24 09/18/2023 Basic metab olic 2000 panel - Serum or Plasm a carbon dioxide, total [moles/volum e] in serum or plasma 30.8 text: 21 - 32 mmol/L CO2 30.8 21 - 32 MMOL/ L 09/17 10:27 AM CDT [facility] Not Available Not Available 06/08/2024 03:45:24 09/18/19 24 09/18/2023 Basic metab olic 2000 panel - Serum or Plasm a calcium [mass/volume ] in serum or plasma 9.3 text: 8.5 - 10.1 mg/dL CALCI UM S/P/B 9.3 8.5 - 10.1 MG/DL 09/17 10:27 AM CDT [facility] Not Available Not Available 06/08/2024 03:45:24 09/18/19 24 09/18/2023 Basic metab olic 2000 panel - Serum or Plasm a anion gap in serum or plasma 7.2 text: 5 - 15 mmol/L ANION GAP 7.2 5 - 15 MMOL/ L 09/17 10:27 AM CDT [facility] (H) [facility] Not Available Not Available 06/08/2024 03:45:24 09/18/19 24 09/18/2023 Basic metab olic 2000 panel - Serum or Plasm a urea nitrogen/cre atinine [mass ratio] in serum or plasma 22.3 low: 6high: 26 BUN CREAT ININE RATIO 22.3 6 - 26 09/17 10:27 AM CDT [facility] (H) [facility] Not Available Not Available 06/08/2024 03:45:24 09/18/19 24 09/18/2023 Basic metab olic 2000 panel - Serum or Plasm a glomerular filtration rate/1.73 sq M.predicted [volume rate/area] in serum, plasma or blood by creatinine-b ased formula (CKD-epi 2020) 60 text: >90 mL/min /1.73 M2 low GFR ESTIM ATE 60 (L) >90 ML/FL N/1.7 3 M2 09/17 10:27 AM T [facility] (H) [facility] Not Available Not Available 06/08/2024 03:45:24 09/18/19 24 09/18/2023 Basic metab olic 2000 panel - Serum or Plasm a interpretati on and review of laboratory results ABNORM AL Not Available Not Available 03:45:24 11/26/1911/26/2023 TSH ULTRA SENSI TIVE TSH ultrasensiti ve 4.242 uIU/m L 0.358- 3.74 high HIGH DOSES OF BIOTI N MAY INTER FERE WITH THIS TEST RESUL T. CORRE LATIO N TO CLINI RAYO HISTO RY AND PRESE NTATI ON RECOM HECTOR D. Not Available [facility] (Lab) [address] [place], [address], 11/26/2023 12:35:23 11/26/19 24 11/26/2023 Thyro tropi n [Unit s/vol ume] in Serum or Plasm a thyrotropin [units/volum e] in serum or plasma 4.242 text: 0.358 - 3.74 uIU/mL high TSH 4.242 (H) 0.358 - 3.74 uIU/M L 11/25 11:35 AM CDT [facility] Not Available Not Available 06/14/2024 16:46:54 11/26/19 24 11/26/2023 Thyro tropi n [Unit s/vol ume] in Serum or Plasm a interpretati on and review of laboratory results Abnorm al Not Available Not Available 16:46:54 12/08/19 24 12/08/2023 CBC W/ DIFFE RENTI AL WBC 6.39 x10'3 /uL 4.4-11 .0 Not Available [facility] (Lab) [employer] [place], [address], 12/08/2023 10:58:50 12/08/19 24 12/08/2023 CBC W/ DIFFE RENTI AL RBC 4.78 x10'6 /uL 4.50-5 .10 Not Available [facility] (Lab) [address] [place] [address], [id number], 12/08/2023 10:58:50 12/08/19 24 12/08/2023 CBC W/ DIFFE RENTI AL hemoglobin 14.0 g/dL 12.3-1 5.3 Not Available [facility] (Lab) [address] [place], [address], 12/08/2023 10:58:50 12/08/19 24 12/08/2023 CBC W/ DIFFE RENTI AL hematocrit 43.8 % 35.9-4 4.6 Not Available [facility] (Lab) [address] [place], [address], 12/08/2023 10:58:50 12/08/19 24 12/08/2023 CBC W/ DIFFE RENTI AL MCV 91.6 fL 80.0-9 6.0 Not Available [facility] (Lab) [address] [place], [address], 12/08/2023 10:58:50 12/08/19 24 12/08/2023 CBC W/ DIFFE RENTI AL MCH 29.3 pg 25.3-3 0.9 Not Available [facility] (Lab) [address] [place] [address], [id number], 12/08/2023 10:58:50 12/08/19 24 12/08/2023 CBC W/ DIFFE RENTI AL MCHC 32.0 g/dL 31.0-3 4.1 Not Available [facility] (Lab) [address] [place] [address], [id number], 12/08/2023 10:58:50 12/08/19 24 12/08/2023 CBC W/ DIFFE RENTI AL RDW 14.7 % 12.4-1 5.1 Not Available [facility] (Lab) [address] [place] [address], [id number], 12/08/2023 10:58:50 12/08/19 24 12/08/2023 CBC W/ DIFFE RENTI AL platelet count 286 x10'3 /uL 151-35 3 Not Available [facility] (Lab) [address] [place] [address], [id number], 12/08/2023 10:58:50 12/08/19 24 12/08/2023 CBC W/ DIFFE RENTI AL MPV 9.0 fL 9.6-12 .0 low Not Available [facility] (Lab) [address] [place] [address], [id number], 12/08/2023 10:58:50 12/08/19 24 12/08/2023 CBC W/ DIFFE RENTI AL RBC morphology NORMAL Not Available [facility] (Lab) [address] [place], [address], 12/08/2023 10:58:50 12/08/19 24 12/08/2023 CBC W/ DIFFE RENTI AL platelet evaluation NORMAL Not Available [facility] (Lab) [address] [place], [address], 12/08/2023 10:58:50 12/08/19 24 12/08/2023 CBC W/ DIFFE RENTI AL WBC morphology NORMAL Not Available [facility] (Lab) [address] [place] [address], [id number], 12/08/2023 10:58:50 12/08/19 24 12/08/2023 CBC W/ DIFFE RENTI AL lymphocytes 20.0 % 15.8-4 5.0 Not Available [facility] (Lab) [address] [place], [address], 12/08/2023 10:58:50 12/08/19 24 12/08/2023 CBC W/ DIFFE RENTI AL neutrophils 62.7 % 42.1-7 1.9 Not Available [facility] (Lab) [address] [place], [address], 12/08/2023 10:58:50 12/08/19 24 12/08/2023 CBC W/ DIFFE RENTI AL monocytes 11.6 % 5.7-12 .5 Not Available [facility] (Lab) [address] [place], [address], 12/08/2023 10:58:50 12/08/19 24 12/08/2023 CBC W/ DIFFE RENTI AL eosinophils 4.5 % 0.0-5. 6 Not Available [facility] (Lab) [address] [place], [address], 12/08/2023 10:58:50 12/08/19 24 12/08/2023 CBC W/ DIFFE RENTI AL basophils 0.9 % 0.0-1. 3 Not Available [facility] (Lab) [address] [place] [address], [id number], 12/08/2023 10:58:50 12/08/19 24 12/08/2023 CBC W/ DIFFE RENTI AL abs. neutrophils 4.00 x10'3 /uL 1.40-6 .00 Not Available [facility] (Lab) [address] [place] [address], [id number], 12/08/2023 10:58:50 12/08/19 24 12/08/2023 CBC W/ DIFFE RENTI AL immature granulocytes 0.3 % 0.0-0. 5 Not Available [facility] (Lab) [address] [place] [address], [id number], 12/08/2023 10:58:50 12/08/19 24 12/08/2023 CBC W/ DIFFE RENTI AL abs. lymphocytes 1.28 x10'3 /uL 0.80-4 .70 Not Available [facility] (Lab) [address] [place] [address], [address], 12/08/2023 10:58:50 12/08/19 24 12/08/2023 BASIC METAB OLIC PANEL glucose 125 mg/dL 70-99 high Not Available [facility] (Lab) [address] [place] [address], [id number], 12/08/2023 11:09:18 12/08/19 24 12/08/2023 BASIC METAB OLIC PANEL BUN 22 mg/dL 7-18 high Not Available [facility] (Lab) [address] [place] [address], [id number], 12/08/2023 11:09:18 12/08/19 24 12/08/2023 BASIC METAB OLIC PANEL creatinine 1.12 mg/dL 0.55-1 .02 high Not Available [facility] (Lab) [address] [place], [address], 12/08/2023 11:09:18 12/08/19 24 12/08/2023 BASIC METAB OLIC PANEL sodium 137 mmol/ L 136-14 5 Not Available [facility] (Lab) [address] [place] [address], [address], 12/08/2023 11:09:18 12/08/19 24 12/08/2023 BASIC METAB OLIC PANEL potassium 3.9 mmol/ L 3.5-5. 1 Not Available [facility] (Lab) [address] [place] [address], [id number], 12/08/2023 11:09:18 12/08/19 24 12/08/2023 BASIC METAB OLIC PANEL chloride 100 mmol/ L 100-10 8 Not Available [facility] (Lab) [address] [place] [address], [address], 12/08/2023 11:09:18 12/08/19 24 12/08/2023 BASIC METAB OLIC PANEL total CO2 30.0 mmol/ L 21-32 Not Available [facility] (Lab) [address] [place] [address], [address], 12/08/2023 11:09:18 12/08/19 24 12/08/2023 BASIC METAB OLIC PANEL calcium 9.3 mg/dL 8.5-10 .1 Not Available [facility] (Lab) [address] [place] [address], [id number], 12/08/2023 11:09:18 12/08/19 24 12/08/2023 BASIC METAB OLIC PANEL anion gap 7.0 mmol/ L 5-15 Not Available [facility] (Lab) [address] [place], [address], 12/08/2023 11:09:18 12/08/19 24 12/08/2023 BASIC METAB OLIC PANEL BUN creatinine ratio 19.6 6-26 Not Available [facility] (Lab) [address] [place], [address], 12/08/2023 11:09:18 12/08/19 24 12/08/2023 BASIC METAB OLIC PANEL est GFR 54 mL/mi n/1.7 3_M2 >90 low NOTE: eGFR is not calcu lated for patie nts <18 years of age. This is an estim ated GFR calcu latio n using the new CKD EPI creat inine equat ion witho ut race and so does not requi re a corre ction facto r for race. This estim ated GFR shoul d not be used for calcu latin g drug doses . Not Available [facility] (Lab) [address] [place], [address], 12/08/2023 11:09:18 12/08/19 24 12/08/2023 CBC W Auto Diffe renti al panel - Blood leukocytes [#/volume] in blood by automated count 6.39 text: 4.4 - 11.0 x10'3/ uL WBC 6.39 4.4 - 11.0 x10'3 /uL 12/07 9:58 AM CDT [facility] Not Available Not Available 06/08/2024 15:02:35 12/08/19 24 12/08/2023 CBC W Auto Diffe renti al panel - Blood erythrocytes [#/volume] in blood by automated count 4.78 text: 4.50 - 5.10 x10'6/ uL RBC 4.78 4.50 - 5.10 x10'6 /uL 12/07 9:58 AM CDT [facility] Not Available Not Available 06/08/2024 15:02:35 12/08/19 24 12/08/2023 CBC W Auto Diffe renti al panel - Blood hemoglobin [mass/volume ] in blood 14 text: 12.3 - 15.3 g/dL HGB 14.0 12.3 - 15.3 G/DL 12/07 9:58 AM CDT [facility] Not Available Not Available 06/08/2024 15:02:35 12/08/19 24 12/08/2023 CBC W Auto Diffe renti al panel - Blood hematocrit [volume fraction] of blood 43.8 % low: 35.9%h igh: 44.6% HCT 43.8 35.9 - 44.6 % 12/07 9:58 AM CDT [facility] Not Available Not Available 06/08/2024 15:02:35 12/08/19 24 12/08/2023 CBC W Auto Diffe renti al panel - Blood MCV [entitic volume] 91.6 text: 80.0 - 96.0 fL MCV 91.6 80.0 - 96.0 FL 12/07 9:58 AM CDT [facility] Not Available Not Available 06/08/2024 15:02:35 12/08/19 24 12/08/2023 CBC W Auto Diffe renti al panel - Blood MCH [entitic mass] 29.3 pg low: 25.3pg high: 30.9pg MCH 29.3 25.3 - 30.9 PG 12/07 9:58 AM CDT [facility] Not Available Not Available 06/08/2024 15:02:35 12/08/19 24 12/08/2023 CBC W Auto Diffe renti al panel - Blood MCHC [mass/volume ] 32 text: 31.0 - 34.1 g/dL MCHC 32.0 31.0 - 34.1 G/DL 12/07 9:58 AM CDT [facility] Not Available Not Available 06/08/2024 15:02:35 09/16/20 24 12/08/2023 CBC W Auto Diffe renti al panel - Blood erythrocyte distribution width [entitic volume] by automated count 14.7 % low: 12.4%h igh: 15.1% RDW 14.7 12.4 - 15.1 % 12/07 9:58 AM CDT [facility] Not Available Not Available 06/08/2024 15:02:35 12/08/19 24 12/08/2023 CBC W Auto Diffe renti al panel - Blood platelets [#/volume] in blood 286 text: 151 - 353 x10'3/ uL PLT 286 151 - 353 x10'3 /uL 12/07 9:58 AM CDT [facility] Not Available Not Available 06/08/2024 15:02:35 12/08/19 24 12/08/2023 CBC W Auto Diffe renti al panel - Blood platelet mean volume [entitic volume] in blood 9 text: 9.6 - 12.0 fL low MPV 9.0 (L) 9.6 - 12.0 FL 12/07 9:58 AM CDT [facility] () [facility] Not Available Not Available 06/08/2024 15:02:35 12/08/19 24 12/08/2023 CBC W Auto Diffe renti al panel - Blood erythrocytes [morphology] in blood by automated count NORMAL RBC MORPH OLOGY BREANA L 12/07 9:58 AM CDT [facility] Not Available Not Available 06/08/2024 15:02:35 12/08/19 24 12/08/2023 CBC W Auto Diffe renti al panel - Blood platelet morphology finding [identifier] in blood NORMAL PLT MORPH . BREANA L 12/07 9:58 AM CDT [facility] Not Available Not Available 06/08/2024 15:02:35 12/08/19 24 12/08/2023 CBC W Auto Diffe renti al panel - Blood leukocyte morphology finding [identifier] in blood NORMAL WBC MORPH OLOGY BREANA L 12/07 9:58 AM CDT [facility] Not Available Not Available 06/08/2024 15:02:35 12/08/19 24 12/08/2023 CBC W Auto Diffe renti al panel - Blood lymphocytes/ 100 leukocytes in blood by automated count 20 % low: 15.8%h igh: 45% LYMPH OCYTE S % 20.0 15.8 - 45.0 % 12/07 9:58 AM CDT [facility] Not Available Not Available 06/08/2024 15:02:35 12/08/19 24 12/08/2023 CBC W Auto Diffe renti al panel - Blood neutrophils/ 100 leukocytes in blood by automated count 62.7 % low: 42.1%h igh: 71.9% NEUTR OPHIL S % 62.7 42.1 - 71.9 % 12/07 9:58 AM CDT [facility] Not Available Not Available 06/08/2024 15:02:35 12/08/19 24 12/08/2023 CBC W Auto Diffe renti al panel - Blood monocytes/10 0 leukocytes in blood by automated count 11.6 % low: 5.7%hi gh: 12.5% MONOC YTES % 11.6 5.7 - 12.5 % 12/07 9:58 AM CDT [facility] Not Available Not Available 06/08/2024 15:02:35 12/08/19 24 12/08/2023 CBC W Auto Diffe renti al panel - Blood eosinophils/ 100 leukocytes in blood by automated count 4.5 % low: 0%high : 5.6% EOSIN OPHIL S 4.5 0.0 - 5.6 % 12/07 9:58 AM CDT [facility] Not Available Not Available 06/08/2024 15:02:35 12/08/19 24 12/08/2023 CBC W Auto Diffe renti al panel - Blood basophils/10 0 leukocytes in blood by automated count 0.9 % low: 0%high : 1.3% BASOP HILS 0.9 0.0 - 1.3 % 12/07 9:58 AM CDT [facility] () [facility] Not Available Not Available 06/08/2024 15:02:35 12/08/19 24 12/08/2023 CBC W Auto Diffe renti al panel - Blood neutrophils [#/volume] in blood 4 text: 1.40 - 6.00 x10'3/ uL ABS. NEUTR OPHIL S 4.00 1.40 - 6.00 x10'3 /uL 12/07 9:58 AM CDT [facility] () [facility] Not Available Not Available 06/08/2024 15:02:35 12/08/19 24 12/08/2023 CBC W Auto Diffe renti al panel - Blood immature granulocytes /100 leukocytes in blood by automated count 0.3 % low: 0%high : 0.5% IMMAT URE GRANS % 0.3 0.0 - 0.5 % 12/07 9:58 AM CDT [facility] () [facility] Not Available Not Available 06/08/2024 15:02:35 12/08/19 24 12/08/2023 CBC W Auto Diffe renti al panel - Blood lymphocytes [#/volume] in blood 1.28 text: 0.80 - 4.70 x10'3/ uL ABS. LYMPH OCYTE S 1.28 0.80 - 4.70 x10'3 /uL 12/07 9:58 AM CDT [facility] () [facility] Not Available Not Available 06/08/2024 15:02:35 12/08/19 24 12/08/2023 CBC W Auto Diffe renti al panel - Blood interpretati on and review of laboratory results ABNORM AL Not Available Not Available 15:02:35 12/08/19 24 12/08/2023 Basic metab olic 2000 panel - Serum or Plasm a glucose [mass/volume ] in serum or plasma 125 text: 70 - 99 mg/dL high GLUCO SE 125 (H) 70 - 99 MG/DL 12/07 10:09 AM T [facility] Not Available Not Available 06/08/2024 15:02:35 12/08/19 24 12/08/2023 Basic metab olic 2000 panel - Serum or Plasm a urea nitrogen [mass/volume ] in serum or plasma 22 text: 7 - 18 mg/dL high BUN 22 (H) 7 - 18 MG/DL 12/07 10:09 AM CDT [facility] Not Available Not Available 06/08/2024 15:02:35 12/08/19 24 12/08/2023 Basic metab olic 1999 panel - Serum or Plasm a creatinine [mass/volume ] in serum or plasma 1.12 text: 0.55 - 1.02 mg/dL high CREAT ININE S/P/B 1.12 (H) 0.55 - 1.02 MG/DL 12/07 10:09 AM T [facility] Not Available Not Available 06/08/2024 15:02:35 12/08/19 24 12/08/2023 Basic metab olic 1999 panel - Serum or Plasm a sodium [moles/volum e] in serum or plasma 137 text: 136 - 145 mmol/L SODIU M S/P/B 137 136 - 145 MMOL/ L 12/07 10:09 AM T [facility] Not Available Not Available 06/08/2024 15:02:35 12/08/19 24 12/08/2023 Basic metab olic 1999 panel - Serum or Plasm a potassium [moles/volum e] in serum or plasma 3.9 text: 3.5 - 5.1 mmol/L POTAS SIUM S/P/B 3.9 3.5 - 5.1 MMOL/ L 12/07 10:09 AM CDT [facility] Not Available Not Available 06/08/2024 15:02:35 12/08/19 24 12/08/2023 Basic metab olic 2000 panel - Serum or Plasm a chloride [moles/volum e] in serum or plasma 100 text: 100 - 108 mmol/L CHLOR NAT S/P/B 100 100 - 108 MMOL/ L 12/07 10:09 AM T [facility] Not Available Not Available 06/08/2024 15:02:35 12/08/19 24 12/08/2023 Basic metab olic 2000 panel - Serum or Plasm a carbon dioxide, total [moles/volum e] in serum or plasma 30 text: 21 - 32 mmol/L CO2 30.0 21 - 32 MMOL/ L 12/07 10:09 AM T [facility] Not Available Not Available 06/08/2024 15:02:35 12/08/19 24 12/08/2023 Basic metab olic 2000 panel - Serum or Plasm a calcium [mass/volume ] in serum or plasma 9.3 text: 8.5 - 10.1 mg/dL CALCI UM S/P/B 9.3 8.5 - 10.1 MG/DL 12/07 10:09 AM T [facility] Not Available Not Available 06/08/2024 15:02:35 12/08/19 24 12/08/2023 Basic metab olic 2000 panel - Serum or Plasm a anion gap in serum or plasma 7 text: 5 - 15 mmol/L ANION GAP 7.0 5 - 15 MMOL/ L 12/07 10:09 AM T [facility] Not Available Not Available 06/08/2024 15:02:35 12/08/19 24 12/08/2023 Basic metab olic 2000 panel - Serum or Plasm a urea nitrogen/cre atinine [mass ratio] in serum or plasma 19.6 low: 6high: 26 BUN CREAT ININE RATIO 19.6 6 - 26 12/07 10:09 AM T [facility] Not Available Not Available 06/08/2024 15:02:35 12/08/19 24 12/08/2023 Basic metab olic 2000 panel - Serum or Plasm a glomerular filtration rate/1.73 sq M.predicted [volume rate/area] in serum, plasma or blood by creatinine-b ased formula (CKD-epi 2020) 54 text: >90 mL/min /1.73 M2 low GFR ESTIM ATE 54 (L) >90 ML/FL N/1.7 3 M2 12/07 10:09 AM CDT [facility] Not Available Not Available 06/08/2024 15:02:35 12/08/19 24 12/08/2023 Basic metab olic 2000 panel - Serum or Plasm a interpretati on and review of laboratory results ABNORM AL Not Available Not Available 15:02:35 01/09/20 24 01/09/2024 FREE T4 free T4 1.21 NG/dL 0.76-1 .46 Not Available [facility] (Lab) [address] [place] [address], [id number], 01/09/2024 10:59:22 01/09/2001/09/2024 TSH ULTRA SENSI TIVE TSH ultrasensiti ve 1.101 uIU/m L 0.358- 3.74 HIGH DOSES OF BIOTI N MAY INTER FERE WITH THIS TEST RESUL T. CORRE LATIO N TO CLINI RAYO HISTO RY AND PRESE NTATI ON RECOM HECTOR D. Not Available [facility] (Lab) [address] [place] [address], [id number], 01/09/2024 10:59:25 01/09/20 24 01/09/2024 Thyro xine (T4) free [Mass /volu me] in Serum or Plasm a thyroxine (T4) free [mass/volume ] in serum or plasma 1.21 text: 0.76 - 1.46 NG/dL FREE T4 1.21 0.76 - 1.46 NG/DL 01/08 9:59 AM CDT [facility] Not Available Not Available 06/08/2024 15:02:38 01/09/20 24 01/09/2024 Thyro tropi n [Unit s/vol ume] in Serum or Plasm a thyrotropin [units/volum e] in serum or plasma 1.101 text: 0.358 - 3.74 uIU/mL TSH 1.101 0.358 - 3.74 uIU/M L 01/08 9:59 AM CDT [facility] Not Available Not Available 06/08/2024 15:02:38 03/08/20 24 03/08/2024 CBC W/ DIFFE RENTI AL WBC 5.61 x10'3 /uL 4.4-11 .0 Not Available [facility] (Lab) [address] [place] [address], [id number], 03/08/2024 10:33:38 03/08/20 24 03/08/2024 CBC W/ DIFFE RENTI AL RBC 5.11 x10'6 /uL 4.50-5 .10 high Not Available [facility] (Lab) [address] [place] [address], [id number], 03/08/2024 10:33:38 03/08/20 24 03/08/2024 CBC W/ DIFFE RENTI AL hemoglobin 14.7 g/dL 12.3-1 5.3 Not Available [facility] (Lab) [address] [place] [address], [id number], 03/08/2024 10:33:38 03/08/20 24 03/08/2024 CBC W/ DIFFE RENTI AL hematocrit 45.0 % 35.9-4 4.6 high Not Available [facility] (Lab) [address] [place] [address], [id number], 03/08/2024 10:33:38 03/08/20 24 03/08/2024 CBC W/ DIFFE RENTI AL MCV 88.1 fL 80.0-9 6.0 Not Available [facility] (Lab) [address] [place] [address], [id number], 03/08/2024 10:33:38 03/08/20 24 03/08/2024 CBC W/ DIFFE RENTI AL MCH 28.8 pg 25.3-3 0.9 Not Available [facility] (Lab) [address] [place], [address], 03/08/2024 10:33:38 03/08/20 24 03/08/2024 CBC W/ DIFFE RENTI AL MCHC 32.7 g/dL 31.0-3 4.1 Not Available [facility] (Lab) [address] [place], [address], 03/08/2024 10:33:38 03/08/20 24 03/08/2024 CBC W/ DIFFE RENTI AL RDW 15.1 % 12.4-1 5.1 Not Available [facility] (Lab) [address] [place], [address], 03/08/2024 10:33:38 03/08/20 24 03/08/2024 CBC W/ DIFFE RENTI AL platelet count 301 x10'3 /uL 151-35 3 Not Available [facility] (Lab) [address] [place], [address], 03/08/2024 10:33:38 03/08/20 24 03/08/2024 CBC W/ DIFFE RENTI AL MPV 8.9 fL 9.6-12 .0 low Not Available [facility] (Lab) [address] [place], [address], 03/08/2024 10:33:38 03/08/20 24 03/08/2024 CBC W/ DIFFE RENTI AL RBC morphology NORMAL Not Available [facility] (Lab) [address] [place], [address], 03/08/2024 10:33:38 03/08/20 24 03/08/2024 CBC W/ DIFFE RENTI AL platelet evaluation NORMAL Not Available [facility] (Lab) [address] [place], [address], 03/08/2024 10:33:38 03/08/20 24 03/08/2024 CBC W/ DIFFE RENTI AL WBC morphology NORMAL Not Available [facility] (Lab) [address] [place] [address], [id number], 03/08/2024 10:33:38 03/08/20 24 03/08/2024 CBC W/ DIFFE RENTI AL lymphocytes 30.7 % 15.8-4 5.0 Not Available [facility] (Lab) [address] [place] [address], [id number], 03/08/2024 10:33:38 03/08/20 24 03/08/2024 CBC W/ DIFFE RENTI AL neutrophils 52.4 % 42.1-7 1.9 Not Available [facility] (Lab) [address] [place] [address], [id number], 03/08/2024 10:33:38 03/08/20 24 03/08/2024 CBC W/ DIFFE RENTI AL monocytes 12.8 % 5.7-12 .5 high Not Available [facility] (Lab) [address] [place] [address], [id number], 03/08/2024 10:33:38 03/08/20 24 03/08/2024 CBC W/ DIFFE RENTI AL eosinophils 3.0 % 0.0-5. 6 Not Available [facility] (Lab) [address] [place] [address], [id number], 03/08/2024 10:33:38 03/08/20 24 03/08/2024 CBC W/ DIFFE RENTI AL basophils 0.9 % 0.0-1. 3 Not Available [facility] (Lab) [address] [place], [address], 03/08/2024 10:33:38 03/08/20 24 03/08/2024 CBC W/ DIFFE RENTI AL abs. neutrophils 2.94 x10'3 /uL 1.40-6 .00 Not Available [facility] (Lab) [address] [place], [address], 03/08/2024 10:33:38 03/08/20 24 03/08/2024 CBC W/ DIFFE RENTI AL immature granulocytes 0.2 % 0.0-0. 5 Not Available [facility] (Lab) [address] [place] [address], [id number], 03/08/2024 10:33:38 03/08/20 24 03/08/2024 CBC W/ DIFFE RENTI AL abs. lymphocytes 1.72 x10'3 /uL 0.80-4 .70 Not Available [facility] (Lab) [address] [place] [address], [id number], 03/08/2024 10:33:38 03/08/20 24 03/08/2024 BASIC METAB OLIC PANEL glucose 120 mg/dL 70-99 high Not Available [facility] (Lab) [address] [place] [address], [id number], 03/08/2024 10:46:15 03/08/20 24 03/08/2024 BASIC METAB OLIC PANEL BUN 20 mg/dL 7-18 high Not Available [facility] (Lab) [address] [place], [address], 03/08/2024 10:46:15 03/08/20 24 03/08/2024 BASIC METAB OLIC PANEL creatinine 1.06 mg/dL 0.55-1 .02 high Not Available [facility] (Lab) [address] [place] [address], [id number], 03/08/2024 10:46:15 03/08/20 24 03/08/2024 BASIC METAB OLIC PANEL sodium 140 mmol/ L 136-14 5 Not Available [facility] (Lab) [address] [place] [address], [id number], 03/08/2024 10:46:15 03/08/20 24 03/08/2024 BASIC METAB OLIC PANEL potassium 4.2 mmol/ L 3.5-5. 1 Not Available [facility] (Lab) [address] [place] [address], [id number], 03/08/2024 10:46:15 03/08/20 24 03/08/2024 BASIC METAB OLIC PANEL chloride 101 mmol/ L 100-10 8 Not Available [facility] (Lab) [address] [place] [address], [id number], 03/08/2024 10:46:15 03/08/20 24 03/08/2024 BASIC METAB OLIC PANEL total CO2 29.2 mmol/ L 21-32 Not Available [facility] (Lab) [address] [place] [address], [id number], 03/08/2024 10:46:15 03/08/20 24 03/08/2024 BASIC METAB OLIC PANEL calcium 9.7 mg/dL 8.5-10 .1 Not Available [facility] (Lab) [address] [place] [address], [id number], 03/08/2024 10:46:15 03/08/20 24 03/08/2024 BASIC METAB OLIC PANEL anion gap 9.8 mmol/ L 5-15 Not Available [facility] (Lab) [address] [place] [address], [id number], 03/08/2024 10:46:15 03/08/20 24 03/08/2024 BASIC METAB OLIC PANEL BUN creatinine ratio 18.9 6-26 Not Available [facility] (Lab) [address] [place] [address], [id number], 03/08/2024 10:46:15 03/08/20 24 03/08/2024 BASIC METAB OLIC PANEL est GFR 58 mL/mi n/1.7 3_M2 >90 low NOTE: eGFR is not calcu lated for patie nts <18 years of age. This is an estim ated GFR calcu latio n using the new CKD EPI creat inine equat ion witho ut race and so does not requi re a corre ction facto r for race. This estim ated GFR shoul d not be used for calcu latin g drug doses . Not Available [facility] (Lab) [employer] [facility], [place], [address], 03/08/2024 10:46:15 03/08/20 24 03/08/2024 CBC W Auto Diffe renti al panel - Blood leukocytes [#/volume] in blood by automated count 5.61 text: 4.4 - 11.0 x10'3/ uL WBC 5.61 4.4 - 11.0 x10'3 /uL 03/08 9:33 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[facility] Not Available Not Available 06/08/2024 15:12:32 03/08/20 24 03/08/2024 CBC W Auto Diffe renti al panel - Blood erythrocytes [#/volume] in blood by automated count 5.11 text: 4.50 - 5.10 x10'6/ uL high RBC 5.11 (H) 4.50 - 5.10 x10'6 /uL 03/08 9:33 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[facility] Not Available Not Available 06/08/2024 15:12:32 03/08/20 24 03/08/2024 CBC W Auto Diffe renti al panel - Blood hemoglobin [mass/volume ] in blood 14.7 text: 12.3 - 15.3 g/dL HGB 14.7 12.3 - 15.3 G/DL 03/08 9:33 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[facility] Not Available Not Available 06/08/2024 15:12:32 03/08/20 24 03/08/2024 CBC W Auto Diffe renti al panel - Blood hematocrit [volume fraction] of blood 45 % low: 35.9%h igh: 44.6% high HCT 45.0 (H) 35.9 - 44.6 % 03/08 9:33 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[facility] Not Available Not Available 06/08/2024 15:12:32 03/08/20 24 03/08/2024 CBC W Auto Diffe renti al panel - Blood MCV [entitic volume] 88.1 text: 80.0 - 96.0 fL MCV 88.1 80.0 - 96.0 FL 03/08 9:33 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[facility] Not Available Not Available 06/08/2024 15:12:32 03/08/20 24 03/08/2024 CBC W Auto Diffe renti al panel - Blood MCH [entitic mass] 28.8 pg low: 25.3pg high: 30.9pg MCH 28.8 25.3 - 30.9 PG 03/08 9:33 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[facility] Not Available Not Available 06/08/2024 15:12:32 03/08/20 24 03/08/2024 CBC W Auto Diffe renti al panel - Blood MCHC [mass/volume ] 32.7 text: 31.0 - 34.1 g/dL MCHC 32.7 31.0 - 34.1 G/DL 03/08 9:33 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[facility] Not Available Not Available 06/08/2024 15:12:32 03/08/20 24 03/08/2024 CBC W Auto Diffe renti al panel - Blood erythrocyte distribution width [entitic volume] by automated count 15.1 % low: 12.4%h igh: 15.1% RDW 15.1 12.4 - 15.1 % 03/08 9:33 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[facility] Not Available Not Available 06/08/2024 15:12:32 03/08/20 24 03/08/2024 CBC W Auto Diffe renti al panel - Blood platelets [#/volume] in blood 301 text: 151 - 353 x10'3/ uL PLT 301 151 - 353 x10'3 /uL 03/08 9:33 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[facility] Not Available Not Available 06/08/2024 15:12:32 03/08/20 24 03/08/2024 CBC W Auto Diffe renti al panel - Blood platelet mean volume [entitic volume] in blood 8.9 text: 9.6 - 12.0 fL low MPV 8.9 (L) 9.6 - 12.0 FL 03/08 9:33 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[facility] Not Available Not Available 06/08/2024 15:12:32 03/08/20 24 03/08/2024 CBC W Auto Diffe renti al panel - Blood erythrocytes [morphology] in blood by automated count NORMAL RBC MORPH OLOGY BREANA L 03/08 9:33 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[facility] Not Available Not Available 06/08/2024 15:12:32 03/08/20 24 03/08/2024 CBC W Auto Diffe renti al panel - Blood platelet morphology finding [identifier] in blood NORMAL PLT MORPH . BREANA L 03/08 9:33 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[facility] Not Available Not Available 06/08/2024 15:12:32 03/08/20 24 03/08/2024 CBC W Auto Diffe renti al panel - Blood leukocyte morphology finding [identifier] in blood NORMAL WBC MORPH OLOGY BREANA L 03/08 9:33 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[facility] Not Available Not Available 06/08/2024 15:12:32 03/08/20 24 03/08/2024 CBC W Auto Diffe renti al panel - Blood lymphocytes/ 100 leukocytes in blood by automated count 30.7 % low: 15.8%h igh: 45% LYMPH OCYTE S % 30.7 15.8 - 45.0 % 03/08 9:33 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[facility] Not Available Not Available 06/08/2024 15:12:32 03/08/20 24 03/08/2024 CBC W Auto Diffe renti al panel - Blood neutrophils/ 100 leukocytes in blood by automated count 52.4 % low: 42.1%h igh: 71.9% NEUTR OPHIL S % 52.4 42.1 - 71.9 % 03/08 9:33 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[facility] Not Available Not Available 06/08/2024 15:12:32 03/08/20 24 03/08/2024 CBC W Auto Diffe renti al panel - Blood monocytes/10 0 leukocytes in blood by automated count 12.8 % low: 5.7%hi gh: 12.5% high MONOC YTES % 12.8 (H) 5.7 - 12.5 % 03/08 9:33 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[facility] Not Available Not Available 06/08/2024 15:12:32 03/08/20 24 03/08/2024 CBC W Auto Diffe renti al panel - Blood eosinophils/ 100 leukocytes in blood by automated count 3 % low: 0%high : 5.6% EOSIN OPHIL S 3.0 0.0 - 5.6 % 03/08 9:33 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[facility] Not Available Not Available 06/08/2024 15:12:32 03/08/20 24 03/08/2024 CBC W Auto Diffe renti al panel - Blood basophils/10 0 leukocytes in blood by automated count 0.9 % low: 0%high : 1.3% BASOP HILS 0.9 0.0 - 1.3 % 03/08 9:33 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[facility] Not Available Not Available 06/08/2024 15:12:32 03/08/20 24 03/08/2024 CBC W Auto Diffe renti al panel - Blood neutrophils [#/volume] in blood 2.94 text: 1.40 - 6.00 x10'3/ uL ABS. NEUTR OPHIL S 2.94 1.40 - 6.00 x10'3 /uL 03/08 9:33 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[facility] Not Available Not Available 06/08/2024 15:12:32 03/08/20 24 03/08/2024 CBC W Auto Diffe renti al panel - Blood immature granulocytes /100 leukocytes in blood by automated count 0.2 % low: 0%high : 0.5% IMMAT URE GRANS % 0.2 0.0 - 0.5 % 03/08 9:33 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[facility] Not Available Not Available 06/08/2024 15:12:32 03/08/20 24 03/08/2024 CBC W Auto Diffe renti al panel - Blood lymphocytes [#/volume] in blood 1.72 text: 0.80 - 4.70 x10'3/ uL ABS. LYMPH OCYTE S 1.72 0.80 - 4.70 x10'3 /uL 03/08 9:33 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[facility] Not Available Not Available 06/08/2024 15:12:32 03/08/20 24 03/08/2024 CBC W Auto Diffe renti al panel - Blood interpretati on and review of laboratory results ABNORM AL Not Available Not Available 15:12:32 03/08/20 24 03/08/2024 Basic metab olic 2000 panel - Serum or Plasm a glucose [mass/volume ] in serum or plasma 120 text: 70 - 99 mg/dL high GLUCO SE 120 (H) 70 - 99 MG/DL 03/08 9:46 AM [facility] Not Available Not Available 06/08/2024 15:12:32 03/08/20 24 03/08/2024 Basic metab olic 2000 panel - Serum or Plasm a urea nitrogen [mass/volume ] in serum or plasma 20 text: 7 - 18 mg/dL high BUN 20 (H) 7 - 18 MG/DL 03/08 9:46 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[facility] Not Available Not Available 06/08/2024 15:12:32 03/08/20 24 03/08/2024 Basic metab olic 2000 panel - Serum or Plasm a creatinine [mass/volume ] in serum or plasma 1.06 text: 0.55 - 1.02 mg/dL high CREAT ININE S/P/B 1.06 (H) 0.55 - 1.02 MG/DL 03/08 9:46 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[facility] Not Available Not Available 06/08/2024 15:12:32 03/08/20 24 03/08/2024 Basic metab olic 1999 panel - Serum or Plasm a sodium [moles/volum e] in serum or plasma 140 text: 136 - 145 mmol/L SODIU M S/P/B 140 136 - 145 MMOL/ L 03/08 9:46 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[facility] Not Available Not Available 06/08/2024 15:12:32 03/08/20 24 03/08/2024 Basic metab olic 2000 panel - Serum or Plasm a potassium [moles/volum e] in serum or plasma 4.2 text: 3.5 - 5.1 mmol/L POTAS SIUM S/P/B 4.2 3.5 - 5.1 MMOL/ L 03/08 9:46 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[facility] Not Available Not Available 06/08/2024 15:12:32 03/08/20 24 03/08/2024 Basic metab olic 2000 panel - Serum or Plasm a chloride [moles/volum e] in serum or plasma 101 text: 100 - 108 mmol/L CHLOR NAT S/P/B 101 100 - 108 MMOL/ L 03/08 9:46 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[facility] Not Available Not Available 06/08/2024 15:12:32 03/08/20 24 03/08/2024 Basic metab olic 1999 panel - Serum or Plasm a carbon dioxide, total [moles/volum e] in serum or plasma 29.2 text: 21 - 32 mmol/L CO2 29.2 21 - 32 MMOL/ L 03/08 9:46 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[facility] Not Available Not Available 06/08/2024 15:12:32 03/08/20 24 03/08/2024 Basic metab olic 1999 panel - Serum or Plasm a calcium [mass/volume ] in serum or plasma 9.7 text: 8.5 - 10.1 mg/dL CALCI UM S/P/B 9.7 8.5 - 10.1 MG/DL 03/08 9:46 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[facility] Not Available Not Available 06/08/2024 15:12:32 03/08/20 24 03/08/2024 Basic metab olic 2000 panel - Serum or Plasm a anion gap in serum or plasma 9.8 text: 5 - 15 mmol/L ANION GAP 9.8 5 - 15 MMOL/ L 03/08 9:46 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[employer] [facility] Not Available Not Available 06/08/2024 15:12:32 03/08/20 24 03/08/2024 Basic metab olic 2000 panel - Serum or Plasm a urea nitrogen/cre atinine [mass ratio] in serum or plasma 18.9 low: 6high: 26 BUN CREAT ININE RATIO 18.9 6 - 26 03/08 9:46 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[facility] Not Available Not Available 06/08/2024 15:12:32 03/08/20 24 03/08/2024 Basic metab olic 2000 panel - Serum or Plasm a glomerular filtration rate/1.73 sq M.predicted [volume rate/area] in serum, plasma or blood by creatinine-b ased formula (CKD-epi 2020) 58 text: >90 mL/min /1.73 M2 low GFR ESTIM ATE 58 (L) >90 ML/FL N/1.7 3 M2 03/08 9:46 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[facility] Not Available Not Available 06/08/2024 15:12:32 03/08/20 24 03/08/2024 Basic metab olic 2000 panel - Serum or Plasm a interpretati on and review of laboratory results ABNORM AL Not Available Not Available 15:12:32 06/08/19 25 06/07/2024 CBC W/ DIFFE RENTI AL WBC 5.42 x10'3 /uL 4.4-11 .0 Not Available [facility] (Lab) [employer] [place], [address], 06/07/2024 11:05:09 06/08/19 25 06/07/2024 CBC W/ DIFFE RENTI AL RBC 5.03 x10'6 /uL 4.50-5 .10 Not Available [facility] (Lab) [address] [place] [address], [id number], 06/07/2024 11:05:09 06/08/19 25 06/07/2024 CBC W/ DIFFE RENTI AL hemoglobin 14.2 g/dL 12.3-1 5.3 Not Available [facility] (Lab) [employer] [place], [address], 06/07/2024 11:05:09 06/08/19 25 06/07/2024 CBC W/ DIFFE RENTI AL hematocrit 44.4 % 35.9-4 4.6 Not Available [facility] (Lab) [address] [place] [address], [id number], 06/07/2024 11:05:09 06/08/19 25 06/07/2024 CBC W/ DIFFE RENTI AL MCV 88.3 fL 80.0-9 6.0 Not Available [facility] (Lab) [address] [place] [address], [id number], 06/07/2024 11:05:09 06/08/19 25 06/07/2024 CBC W/ DIFFE RENTI AL MCH 28.2 pg 25.3-3 0.9 Not Available [facility] (Lab) [address] [place] [address], [id number], 06/07/2024 11:05:09 06/08/19 25 06/07/2024 CBC W/ DIFFE RENTI AL MCHC 32.0 g/dL 31.0-3 4.1 Not Available [facility] (Lab) [address] [place] [address], [id number], 06/07/2024 11:05:09 06/08/19 25 06/07/2024 CBC W/ DIFFE RENTI AL RDW 15.7 % 12.4-1 5.1 high Not Available [facility] (Lab) [address] [place] [address], [id number], 06/07/2024 11:05:09 06/08/19 25 06/07/2024 CBC W/ DIFFE RENTI AL platelet count 280 x10'3 /uL 151-35 3 Not Available [facility] (Lab) [address] [place] [address], [id number], 06/07/2024 11:05:09 06/08/19 25 06/07/2024 CBC W/ DIFFE RENTI AL MPV 9.2 fL 9.6-12 .0 low Not Available [facility] (Lab) [address] [place] [address], [id number], 06/07/2024 11:05:09 06/08/19 25 06/07/2024 CBC W/ DIFFE RENTI AL RBC morphology NORMAL Not Available [facility] (Lab) [address] [place] [address], [id number], 06/07/2024 11:05:09 06/08/19 25 06/07/2024 CBC W/ DIFFE RENTI AL platelet evaluation NORMAL Not Available [facility] (Lab) [address] [place], [address], 06/07/2024 11:05:09 06/08/19 25 06/07/2024 CBC W/ DIFFE RENTI AL WBC morphology NORMAL Not Available [facility] (Lab) [address] [place], [address], 06/07/2024 11:05:09 06/08/19 25 06/07/2024 CBC W/ DIFFE RENTI AL lymphocytes 28.8 % 15.8-4 5.0 Not Available [facility] (Lab) [address] [place], [address], 06/07/2024 11:05:09 06/08/19 25 06/07/2024 CBC W/ DIFFE RENTI AL neutrophils 53.1 % 42.1-7 1.9 Not Available [facility] (Lab) [address] [place], [address], 06/07/2024 11:05:09 06/08/19 25 06/07/2024 CBC W/ DIFFE RENTI AL monocytes 13.1 % 5.7-12 .5 high Not Available [facility] (Lab) [address] [place], [address], 06/07/2024 11:05:09 06/08/19 25 06/07/2024 CBC W/ DIFFE RENTI AL eosinophils 3.5 % 0.0-5. 6 Not Available [facility] (Lab) [address] [place], [address], 06/07/2024 11:05:09 06/08/19 25 06/07/2024 CBC W/ DIFFE RENTI AL basophils 1.1 % 0.0-1. 3 Not Available [facility] (Lab) [address] [place], [address], 06/07/2024 11:05:09 06/08/19 25 06/07/2024 CBC W/ DIFFE RENTI AL abs. neutrophils 2.88 x10'3 /uL 1.40-6 .00 Not Available [facility] (Lab) [address] [place] [address], [id number], 06/07/2024 11:05:09 06/08/19 25 06/07/2024 CBC W/ DIFFE RENTI AL immature granulocytes 0.4 % 0.0-0. 5 Not Available [facility] (Lab) [address] [place] [address], [id number], 06/07/2024 11:05:09 06/08/19 25 06/07/2024 CBC W/ DIFFE RENTI AL abs. lymphocytes 1.56 x10'3 /uL 0.80-4 .70 Not Available [facility] (Lab) [address] [place] [address], [id number], 06/07/2024 11:05:09 06/08/19 25 06/07/2024 BASIC METAB OLIC PANEL glucose 117 mg/dL 70-99 high Not Available [facility] (Lab) [address] [place] [address], [id number], 06/07/2024 11:13:23 06/08/19 25 06/07/2024 BASIC METAB OLIC PANEL BUN 23 mg/dL 7-18 high Not Available [facility] (Lab) [address] [place] [address], [id number], 06/07/2024 11:13:23 06/08/19 25 06/07/2024 BASIC METAB OLIC PANEL creatinine 0.97 mg/dL 0.55-1 .02 Not Available [facility] (Lab) [address] [place] [address], [id number], 06/07/2024 11:13:23 06/08/19 25 06/07/2024 BASIC METAB OLIC PANEL sodium 138 mmol/ L 136-14 5 Not Available [facility] (Lab) [address] [place], [address], 06/07/2024 11:13:23 06/08/19 25 06/07/2024 BASIC METAB OLIC PANEL potassium 4.2 mmol/ L 3.5-5. 1 Not Available [facility] (Lab) [address] [place], [address], 06/07/2024 11:13:23 06/08/19 25 06/07/2024 BASIC METAB OLIC PANEL chloride 102 mmol/ L 100-10 8 Not Available [facility] (Lab) [address] [place] [address], [id number], 06/07/2024 11:13:23 06/08/19 25 06/07/2024 BASIC METAB OLIC PANEL total CO2 28.6 mmol/ L 21-32 Not Available [facility] (Lab) [address] [place], [address], 06/07/2024 11:13:23 06/08/19 25 06/07/2024 BASIC METAB OLIC PANEL calcium 9.6 mg/dL 8.5-10 .1 Not Available [facility] (Lab) [address] [place], [address], 06/07/2024 11:13:23 06/08/19 25 06/07/2024 BASIC METAB OLIC PANEL anion gap 7.4 mmol/ L 5-15 Not Available [facility] (Lab) [address] [place], [address], 06/07/2024 11:13:23 06/08/19 25 06/07/2024 BASIC METAB OLIC PANEL BUN creatinine ratio 23.7 6-26 Not Available [facility] (Lab) [address] [place], [address], 06/07/2024 11:13:23 03/17/06/07/2024 BASIC METAB OLIC PANEL est GFR 64 mL/mi n/1.7 3_M2 >90 low NOTE: eGFR is not calcu lated for patie nts <18 years of age. This is an estim ated GFR calcu latio n using the new CKD EPI creat inine equat ion witho ut race and so does not requi re a corre ction facto r for race. This estim ated GFR shoul d not be used for calcu latin g drug doses . Not Available [facility] (Lab) [address] [place], [address], 06/07/2024 11:13:23 06/08/19 25 06/07/2024 Basic metab olic 1999 panel - Serum or Plasm a glucose [mass/volume ] in serum or plasma 117 text: 70 - 99 mg/dL high GLUCO SE 117 (H) 70 - 99 MG/DL 06/07 10:13 AM CDT [facility] Not Available Not Available 06/08/2024 15:02:43 06/08/19 25 06/07/2024 Basic metab olic 1999 panel - Serum or Plasm a urea nitrogen [mass/volume ] in serum or plasma 23 text: 7 - 18 mg/dL high BUN 23 (H) 7 - 18 MG/DL 06/07 10:13 AM CDT [facility] Not Available Not Available 06/08/2024 15:02:43 06/08/19 25 06/07/2024 Basic metab olic 2000 panel - Serum or Plasm a creatinine [mass/volume ] in serum or plasma 0.97 text: 0.55 - 1.02 mg/dL CREAT ININE S/P/B 0.97 0.55 - 1.02 MG/DL 06/07 10:13 AM CDT [facility] Not Available Not Available 06/08/2024 15:02:43 06/08/19 25 06/07/2024 Basic metab olic 2000 panel - Serum or Plasm a sodium [moles/volum e] in serum or plasma 138 text: 136 - 145 mmol/L SODIU M S/P/B 138 136 - 145 MMOL/ L 06/07 10:13 AM CDT [facility] Not Available Not Available 06/08/2024 15:02:43 06/08/1906/07/2024 Basic metab olic 2000 panel - Serum or Plasm a potassium [moles/volum e] in serum or plasma 4.2 text: 3.5 - 5.1 mmol/L POTAS SIUM S/P/B 4.2 3.5 - 5.1 MMOL/ L 06/07 10:13 AM CDT [facility] Not Available Not Available 06/08/2024 15:02:43 06/08/1906/07/2024 Basic metab olic 2000 panel - Serum or Plasm a chloride [moles/volum e] in serum or plasma 102 text: 100 - 108 mmol/L CHLOR NAT S/P/B 102 100 - 108 MMOL/ L 06/07 10:13 AM CDT [facility] Not Available Not Available 06/08/2024 15:02:43 06/08/1906/07/2024 Basic metab olic 2000 panel - Serum or Plasm a carbon dioxide, total [moles/volum e] in serum or plasma 28.6 text: 21 - 32 mmol/L CO2 28.6 21 - 32 MMOL/ L 06/07 10:13 AM CDT [facility] Not Available Not Available 06/08/2024 15:02:43 06/08/1906/07/2024 Basic metab olic 2000 panel - Serum or Plasm a calcium [mass/volume ] in serum or plasma 9.6 text: 8.5 - 10.1 mg/dL CALCI UM S/P/B 9.6 8.5 - 10.1 MG/DL 06/07 10:13 AM CDT [facility] Not Available Not Available 06/08/2024 15:02:43 06/08/19 25 06/07/2024 Basic metab olic 2000 panel - Serum or Plasm a anion gap in serum or plasma 7.4 text: 5 - 15 mmol/L ANION GAP 7.4 5 - 15 MMOL/ L 06/07 10:13 AM CDT [facility] Not Available Not Available 06/08/2024 15:02:43 06/08/19 25 06/07/2024 Basic metab olic 2000 panel - Serum or Plasm a urea nitrogen/cre atinine [mass ratio] in serum or plasma 23.7 low: 6high: 26 BUN CREAT ININE RATIO 23.7 6 - 26 06/07 10:13 AM CDT [facility] Not Available Not Available 06/08/2024 15:02:43 06/08/19 25 06/07/2024 Basic metab olic 2000 panel - Serum or Plasm a glomerular filtration rate/1.73 sq M.predicted [volume rate/area] in serum, plasma or blood by creatinine-b ased formula (CKD-epi 2020) 64 text: >90 mL/min /1.73 M2 low GFR ESTIM ATE 64 (L) >90 ML/FL N/1.7 3 M2 06/07 10:13 AM CDT [facility] Not Available Not Available 06/08/2024 15:02:43 06/08/19 25 06/07/2024 Basic metab olic 2000 panel - Serum or Plasm a interpretati on and review of laboratory results ABNORM AL Not Available Not Available 15:02:43 06/08/19 25 06/07/2024 CBC W Auto Diffe renti al panel - Blood leukocytes [#/volume] in blood by automated count 5.42 text: 4.4 - 11.0 x10'3/ uL WBC 5.42 4.4 - 11.0 x10'3 /uL 06/07 10:04 AM CDT [facility] ([facility] Not Available Not Available 06/08/2024 15:02:42 06/08/19 25 06/07/2024 CBC W Auto Diffe renti al panel - Blood erythrocytes [#/volume] in blood by automated count 5.03 text: 4.50 - 5.10 x10'6/ uL RBC 5.03 4.50 - 5.10 x10'6 /uL 06/07 10:04 AM CDT [facility] Not Available Not Available 06/08/2024 15:02:42 06/08/19 25 06/07/2024 CBC W Auto Diffe renti al panel - Blood hemoglobin [mass/volume ] in blood 14.2 text: 12.3 - 15.3 g/dL HGB 14.2 12.3 - 15.3 G/DL 06/07 10:04 AM CDT [facility] Not Available Not Available 06/08/2024 15:02:42 06/08/19 25 06/07/2024 CBC W Auto Diffe renti al panel - Blood hematocrit [volume fraction] of blood 44.4 % low: 35.9%h igh: 44.6% HCT 44.4 35.9 - 44.6 % 06/07 10:04 AM CDT [facility] Not Available Not Available 06/08/2024 15:02:42 06/08/19 25 06/07/2024 CBC W Auto Diffe renti al panel - Blood MCV [entitic volume] 88.3 text: 80.0 - 96.0 fL MCV 88.3 80.0 - 96.0 FL 06/07 10:04 AM CDT [facility] Not Available Not Available 06/08/2024 15:02:42 06/08/19 25 06/07/2024 CBC W Auto Diffe renti al panel - Blood MCH [entitic mass] 28.2 pg low: 25.3pg high: 30.9pg MCH 28.2 25.3 - 30.9 PG 06/07 10:04 AM CDT [facility] Not Available Not Available 06/08/2024 15:02:42 03/17/20 25 06/07/2024 CBC W Auto Diffe renti al panel - Blood MCHC [mass/volume ] 32 text: 31.0 - 34.1 g/dL MCHC 32.0 31.0 - 34.1 G/DL 06/07 10:04 AM CDT [facility] Not Available Not Available 06/08/2024 15:02:42 06/08/1906/07/2024 CBC W Auto Diffe renti al panel - Blood erythrocyte distribution width [entitic volume] by automated count 15.7 % low: 12.4%h igh: 15.1% high RDW 15.7 (H) 12.4 - 15.1 % 06/07 10:04 AM CDT [facility] Not Available Not Available 06/08/2024 15:02:42 06/08/1906/07/2024 CBC W Auto Diffe renti al panel - Blood platelets [#/volume] in blood 280 text: 151 - 353 x10'3/ uL PLT 280 151 - 353 x10'3 /uL 06/07 10:04 AM CDT [facility] Not Available Not Available 06/08/2024 15:02:42 06/08/19 25 06/07/2024 CBC W Auto Diffe renti al panel - Blood platelet mean volume [entitic volume] in blood 9.2 text: 9.6 - 12.0 fL low MPV 9.2 (L) 9.6 - 12.0 FL 06/07 10:04 AM CDT [facility] Not Available Not Available 06/08/2024 15:02:42 06/08/19 25 06/07/2024 CBC W Auto Diffe renti al panel - Blood erythrocytes [morphology] in blood by automated count NORMAL RBC MORPH OLOGY BREANA L 06/07 10:04 AM CDT [facility] Not Available Not Available 06/08/2024 15:02:42 06/08/19 25 06/07/2024 CBC W Auto Diffe renti al panel - Blood platelet morphology finding [identifier] in blood NORMAL PLT MORPH . BREANA L 06/07 10:04 AM CDT [facility] Not Available Not Available 06/08/2024 15:02:42 06/08/19 25 06/07/2024 CBC W Auto Diffe renti al panel - Blood leukocyte morphology finding [identifier] in blood NORMAL WBC MORPH OLOGY BREANA L 06/07 10:04 AM CDT [facility] Not Available Not Available 06/08/2024 15:02:42 06/08/19 25 06/07/2024 CBC W Auto Diffe renti al panel - Blood lymphocytes/ 100 leukocytes in blood by automated count 28.8 % low: 15.8%h igh: 45% LYMPH OCYTE S % 28.8 15.8 - 45.0 % 06/07 10:04 AM CDT [facility] Not Available Not Available 06/08/2024 15:02:42 06/08/19 25 06/07/2024 CBC W Auto Diffe renti al panel - Blood neutrophils/ 100 leukocytes in blood by automated count 53.1 % low: 42.1%h igh: 71.9% NEUTR OPHIL S % 53.1 42.1 - 71.9 % 06/07 10:04 AM CDT [facility] Not Available Not Available 06/08/2024 15:02:42 06/08/19 25 06/07/2024 CBC W Auto Diffe renti al panel - Blood monocytes/10 0 leukocytes in blood by automated count 13.1 % low: 5.7%hi gh: 12.5% high MONOC YTES % 13.1 (H) 5.7 - 12.5 % 06/07 10:04 AM CDT [facility] Not Available Not Available 06/08/2024 15:02:42 06/08/19 25 06/07/2024 CBC W Auto Diffe renti al panel - Blood eosinophils/ 100 leukocytes in blood by automated count 3.5 % low: 0%high : 5.6% EOSIN OPHIL S 3.5 0.0 - 5.6 % 06/07 10:04 AM CDT [facility] Not Available Not Available 06/08/2024 15:02:42 06/08/19 25 06/07/2024 CBC W Auto Diffe renti al panel - Blood basophils/10 0 leukocytes in blood by automated count 1.1 % low: 0%high : 1.3% BASOP HILS 1.1 0.0 - 1.3 % 06/07 10:04 AM CDT [facility] Not Available Not Available 06/08/2024 15:02:42 06/08/19 25 06/07/2024 CBC W Auto Diffe renti al panel - Blood neutrophils [#/volume] in blood 2.88 text: 1.40 - 6.00 x10'3/ uL ABS. NEUTR OPHIL S 2.88 1.40 - 6.00 x10'3 /uL 06/07 10:04 AM CDT [facility] Not Available Not Available 06/08/2024 15:02:42 06/08/19 25 06/07/2024 CBC W Auto Diffe renti al panel - Blood immature granulocytes /100 leukocytes in blood by automated count 0.4 % low: 0%high : 0.5% IMMAT URE GRANS % 0.4 0.0 - 0.5 % 06/07 10:04 AM CDT [facility] Not Available Not Available 06/08/2024 15:02:42 06/08/19 25 06/07/2024 CBC W Auto Diffe renti al panel - Blood lymphocytes [#/volume] in blood 1.56 text: 0.80 - 4.70 x10'3/ uL ABS. LYMPH OCYTE S 1.56 0.80 - 4.70 x10'3 /uL 06/07 10:04 AM CDT [facility] Not Available Not Available 06/08/2024 15:02:42 06/08/19 25 06/07/2024 CBC W Auto Diffe renti al panel - Blood interpretati on and review of laboratory results ABNORM AL Not Available Not Available 15:02:42 10/22/19 23 mg scree dimitrios W nikko martha digi [facility] [place] [address] [place] [address] This is a summar y report . The comple te report is availa ble in the patien t's medica l record . If you cannot access the medica l record , please contac t the geri carreon apoorva for a detail ed fax or copy. EXAMIN ATION: Digita l bilate ral screen ing mammog jose ramon with 3-D tomosy nthesi s ACCESS ION: [id number] EXAM DATE/T RIO: 023 12:31 PM REASON FOR EXAM: [id number] COMPAR CARRIE: September 2021, September 2020, September 2019 TECHNI QUE: Digita l screen ing mammog lydia of both breast s was perfor med in additi on to 3-D Tomosy nthesi s techni que. This study was read with the assist ance of a Flixpress er-aid ed detect ion system . TISSUE DENSIT Y: There are scatte red areas of fibrog landul ar densit y. FINDIN GS: No suspic ious masses , malign ant appear ing calcif icatio ns, skin thicke dimitrios or other abnorm alitie s are presen t. No signif icant change from the prior exam. =====I MPRESS ION:== === No mammog raphic findin gs sugges tive of malign janine ASSESS MENT: ACR BI-RAD S 2 - BENIGN FINDIN G(S) Recomm endati on: 1: Routin e Screen ing Bilate ral COMMEN TS: ====== ====== ====== ====== Ordere d By: ROSAURA TIM Electr onical ly Signed By: Chris cuellar MD on 2:56 PM Interp reted By: Chris cuellar MD, 2:55 PM [facility] (Imaging & Mammogram) [address], [place], [address], 10/21/2022 19:43:50 10/22/19 23 10/21/2022 MAMMO , scree dimitrios, bilat eral No observ ation record ed. [facility] [address] [place], [address], 10/26/2022 12:35:50 10/23/19 bone densi ty/de xa [facility] [place] [address] [facility] [place] [address] Examin ation: Bone Densit y Axial Access ion: [id number] Exam Date/T rio: 12:32 PM Reason For Exam: postme nopaus al state Postme nopaus al state Compar carrie: None Findin gs: DEXA bone densit ometry The bone minera l densit y (BMD) was determ ined by dual-e nergy x-ray absorp tiomet ry, the result s are as follow s: AP Lumbar Spine L1 throug h L4 BMD Patien t (GM/SQ CM): 0.930 T-Scor e (Stand rob deviat ions from young adult peak bone densit y): -1.1 Left femora l neck: BMD Patien t (GM/SQ CM): 0.696 T-Scor e (Stand rob deviat ions from young adult peak bone densit y): -1.4 Total right femur: BMD Patien t (GM/SQ CM): 0.901 T-Scor e (Stand rob deviat ions from young adult peak bone densit y): -0.3 ====== ====== ==== IMPRES JOSE J: ====== ====== ====== WHO Classi ficati on: osteop enia. Fractu re risk: Increa sed ====== ====== ====== ====== ====== ====== ====== ===== Ordere d By: ROSAURA TIM Girma onical ly Signed By: Sunday liang MD on 10/23/19 6:30 AM Interp reted By: Sunday liang MD, 10/23/19 6:29 AM [facility] (Imaging & Mammogram) [address] [place], [address], 10/22/2022 13:56:30 10/23/1910/21/2022 DEXA No observ ation record ed. [facility] [address] [place], [address], 10/22/2022 14:02:10 03/02/20 23 xr ribs lt+Pa chest [facility] [place] [address] [facility] [place] [address] Examin ation: Right knee 4 views, left ribs 4 views and PA chest Access ion: [id number], [id number] Exam Date/T rio: 2022 6:16 PM Reason For Exam: pain s/p fall Compar carrie: Right knee radiog raphs 2021, chest x-ray 2021 Techni que: 4 views of the right knee as well as 4 views of the left ribs and 1 PA view of the chest were obtain ed. Findin gs: Right knee: No acute fractu re or disloc ation. No signif icant degene rative change . No destru ctive osseou s lytic or sclero tic lesion s. No signif icant joint effusi on. Left ribs, chest: No acute displa harini rib fractu re identi fied. Large hiatal hernia . Cardia c silhou ette is not enlarg ed. Minima l left basila r atelec tasis, otherw ise lungs are clear. No pneumo thorax or pleura l effusi on. IMPRES JOSE J: 1. No acute osseou s abnorm alitie s in the right knee or left ribs. 2. No acute cardio pulmon mayra proces s. 3. Large hiatal hernia . Referr ed By: Girma hernandez Signed By: Rodríguez montano Dr. on 2022 7:00 PM Interp reted By: Rodríguez montano Dr., 2022 6:52 PM [facility] (Imaging & Mammogram) [address] [place] [address], [address], 03/03/2023 08:35:05 03/02/20 23 xr knee RT min 4V [facility] [place] [address] [place] [address] Examin ation: Right knee 4 views, left ribs 4 views and PA chest Access ion: [id number], [id number] Exam Date/T rio: 2022 6:16 PM Reason For Exam: pain s/p fall Compar carrie: Right knee radiog raphs 2021, chest x-ray 2021 Techni que: 4 views of the right knee as well as 4 views of the left ribs and 1 PA view of the chest were obtain ed. Findin gs: Right knee: No acute fractu re or disloc ation. No signif icant degene rative change . No destru ctive osseou s lytic or sclero tic lesion s. No signif icant joint effusi on. Left ribs, chest: No acute displa harini rib fractu re identi fied. Large hiatal hernia . Cardia c silhou ette is not enlarg ed. Minima l left basila r atelec tasis, otherw ise lungs are clear. No pneumo thorax or pleura l effusi on. IMPRES JOSE J: 1. No acute osseou s abnorm alitie s in the right knee or left ribs. 2. No acute cardio pulmon mayra proces s. 3. Large hiatal hernia . Referr ed By: Girma hernandez Signed By: Rodríguez montano Dr. on 2022 7:00 PM Interp reted By: Rodríguez montano Dr., 2022 6:52 PM [facility] (Imaging & Mammogram) [address], [place], [address], 03/03/2023 08:35:06 03/02/[address] ABD+p el wo con [facility] [place] [address] [address] [facility] [place] [address] EXAM: CT ABD+PE L WO CON DATE: 2022 COMPAR CARRIE: None INDICA TION: Recent fall, back pain, left rib pain, and hematu [place]. TECHNI QUE: Noncon trast imagin g A dose loweri ng techni que was used for this proced ure, which may includ e, but is not limite d to, dose reduct ion techni que, automa kevin exposu re contro l, iterat rogelio recons tructi on, ALARA (As Low As Reason ably Achiev able), or Image Gently techni ques. FINDIN GS: There are multip le thin linear densit ies in the lower lobes and the right middle lobe. Right middle lobe findin gs are associ ated with a small segmen jorge region of bronch iectas is. The densit ies bilate rally could repres ent atelec tasis or scarri ng. There is a large hiatal hernia compos ed of stomac h and fat. Greate st dimens ion is about 10 cm. Normal noncon trast appear ance of the liver, spleen , adrena l glands , and pancre as. Gallbl adder is abnorm ally disten ded with a diamet er of 4.1 cm and a length of about 9 cm. No stones , wall thicke dimitrios, or right upper quadra nt inflam mation . Normal noncon trast appear ance of the kidney s. No perine phric abnorm ality. There are probab ly small parape lvic cysts presen t. Poorly disten ded urinar y bladde r is grossl y normal . Normal appear ance to the uterus . No adnexa l mass. Distal descen ding and sigmoi d divert iculos is. Modera te stool volume . Normal small bowel and append ix. No free fluid in the abdome n or pelvis . Diffus e degene rative disc diseas e in the low thorac ic spine with multip le anteri or osteop hytes. There are probab ly at least modera te severi ty spinal stenos is at L4-5 due to disc bulge plus facet and ligame ntum flavum hypert rophy. IMPRES JOSE J: 1. Nonspe cific linear densit ies in the lungs. 2. Large hiatal hernia . 3. Disten ded gallbl adder with no associ ated abnorm ality. 4. Divert iculos is and modera te stool volume . 5. Spinal stenos is at L4-5. Referr ed By: Electr onical ly Signed By: Han Johnson MD on 2022 9:39 PM Interp reted By: Han Johnson MD, 2022 9:[address] (Imaging & Mammogram) [address] [place] [address], [address], 03/03/2023 08:35:06 08/21/19 24 XR, femur , 2 or more view [facility] [place] [address] [facility] [address] Examin ation: XR FEMUR LT 2V Exam time: 12:42 PM Clinic al histor y: Left thigh pain Compar carrie: None Techni que: AP and latera l left femur Findin gs: No acute soft tissue abnorm ality. There is no eviden ce of acute fractu re or focal lytic bone destru ctive lesion involv ing the femur. Left hip joint space is fairly well-m aintai callum. IMPRES JOSE J: 1) No signif icant radiog raphic abnorm ality. Ordere d By: SHER Bartholomew Electr onical ly Signed By: Abel tanner MD on 1:08 PM Interp reted By: Abel tanner MD, 1:[address] (Imaging & Mammogram) [address] [place] [address], [address], 08/21/2023 14:18:07 10/23/19 24 10/22/2023 US, doppl er, venou s No observ ation record ed. [facility] [address] [facility] [place], [address], 10/29/2023 21:29:31 10/24/19 24 mg scree dimitrios W nikko martha digi [facility] [place] [address] [facility] [place] [place] [address] This is a summar y report . The comple te report is availa ble in the patien t's medica l record . If you cannot access the medica l record , please contac t the geri zambrano organlynnette guerin for a detail ed fax or copy. EXAMIN ATION: Digita l bilate ral screen ing mammog jose ramon with 3-D tomosy nthesi s ACCESS ION: [id number] EXAM DATE/T RIO: 10/24/19 24 10:25 AM REASON FOR EXAM: annual Screen ing COMPAR CARRIE: Priors includ ing September 2022, September 2021, September 2020. TECHNI QUE: Digita l screen ing mammog lydia of both breast s was perfor med in additi on to 3-D Tomosy nthesi s techni que. This study was read with the assist ance of a Flixpress er-aid ed detect ion system . TISSUE DENSIT Y: There are scatte red areas of fibrog landul ar densit y. FINDIN GS: No suspic ious masses , malign ant appear ing calcif icatio ns, skin thicke dimitrios or other abnorm alitie s are presen t. No signif icant change from the prior exam. =====I MPRESS ION:== === No mammog raphic findin gs sugges tive of malign janine ASSESS MENT: ACR BI-RAD S 2 - BENIGN FINDIN G(S) Recomm endati on: 1: Routin e Screen ing Bilate ral COMMEN TS: ====== ====== ====== ====== Ordere d By: ROSAURA TIM Electr onical ly Signed By: Chris cuellar MD on 10/24/19 3:07 PM Interp reted By: Chris cuellar MD, 10/24/19 3:07 PM [facility] (Imaging & Mammogram) [address] [place], [address], 10/29/2023 21:29:31 11/18/19 24 imagi ng/di agnos tic resul t No observ ation record ed. Not Available 2024 17:04:27 12/12/19 24 usv venou s reflu x low martha [facility] [place] [address] [facility] [place] [address] [facility] [place] [address] [place] [address] IMAGIN G STUDIE S: USV VENOUS REFLUX LOW MARTHA EXAM DATE/T RIO: 024 12:03 PM CLINIC AL HISTOR Y: EVAL FOR VENOUS INSUFF . & REFLUX AT SAPHEN OUS FEMORA L JUNCTI ON . FINDIN GS: THERE IS NO EVIDEN CE OF DVT WITHIN THE RIGHT AND LEFT COMMON FEMORA L VEINS OR BILATE RAL PROXIM AL SAPHEN OUS VEINS. THERE IS NO EVIDEN CE OF DVT WITHIN THE ENTIRE COURSE OF THE RIGHT AND LEFT FEMORA L VEINS. NO EVIDEN CE OF DVT WITHIN THE RIGHT AND LEFT POPLIT EAL VEINS OR BEATER OUT IOR TIBIAL VEINS. . No eviden ce of reflux within the deep venous system . Positi ve reflux of the right saphen ofemor al juncti on of 0.72 second s. Diamet er 1.1 cm. Positi ve reflux in the left saphen ofemor al juncti on 1.41 second s. Diamet er 1.09 cm. Positi ve reflux within the left greate r saphen ous vein in the mid thigh of 1.24 second s. Diamet er 5.2 mm. Positi ve reflux in the left greate r saphen ous vein in the mid calf of 4.93 second s. Diamet er of 3 mm. IMPRES JOSE J: 1. No eviden ce of DVT. 2. Positi ve reflux in the bilate ral superf icial venous system s. Ordere d By: ROBERTO BUENROSTRO Electr onical ly Signed By: Rosa Isela Kruger on 7:44 AM Interp reted By: Rosa Isela Kruger , 7:[address] (Imaging & Mammogram) [address] [place], [address], 06/08/2024 17:04:27 01/28/20 24 XR, chest , 2 view [facility] [place] [address] [facility] [place] [address] [facility] [place] [address] [place] [facility] [place] [address] XR CHEST PA+LAT INDICA TION: CHRONI C COUGH TECHNI QUE: PA and latera l views of the chest. COMPAR CARRIE: Chest radiog raph 2022. FINDIN GS: The cardio medias tinal silhou ette is within normal limits . Large hiatal hernia redemo nstrat ed. Mild reticu lar opacit ies at the lung bases. No pulmon mayra vascul ar conges tion. No sizabl e pleura l effusi on or pneumo thorax . Modera te thorac ic spondy losis. IMPRES JOSE J: 1. Simila r mild reticu lar opacit ies the lung bases favore d to reflec t scarri ng or atelec tasis. No acute findin gs. 2. Large latera l hernia . Ordere d By: ROSAURA TIM Electr onical ly Signed By: Jaylon Lea MD on 10:40 AM Interp reted By: Jaylon Lea MD, 10:[address] (Imaging & Mammogram) [address] [place], [address], 06/08/2024 17:04:26 01/28/20 24 01/28/2024 XR, chest , 2 view No observ ation record ed. [facility] - Radiology [address], [place], [address], 06/08/2024 17:04:27 02/18/20 24 xr foot lt 3V [facility] [place] [address] [facility] [place] [address] [facility] [place] [address] [place] [address] IMAGIN G JEREMY S: XR FOOT LT 3V DATE: 2023 12:30 PM CLINIC AL HISTOR Y: pain in left foot . No histor y of trauma . Jarales pop. COMPAR CARRIE: No Compar isons. FINDIN GS: Three view foot demons trates no eviden ce of acute fractu re, disloc ation or osseou s erosio n. Osteop enia limits exam. Mild scatte red degene rative change . No radiop aque foreig n bodies or soft tissue abnorm alitie s. . Small planta r calcan eal spur. IMPRES JOSE J: 1. No acute findin gs Ordere d By: ROSAURA Rayo onical ly Signed By: Rosa Isela Kruger on 2023 8:26 AM Interp reted By: Rosa Isela Kruger , 2023 8:[address] (Imaging & Mammogram) [address] [place], [address], 06/08/2024 17:04:26 02/18/20 24 02/17/2024 XR, foot, 3 or more view No observ ation record ed. [address] [address] [facility] [place], [address], 06/08/2024 17:04:26 Result Notes None recorded. Problems Name Problem SNOMED Code Status Onset Date Resolution Date Notes Provider Name and Address Organization Details Recorded Time Prediabe sonja 585390633 Active 2018 Not Available [facility] 4 18:07:29 Allergic reaction to food 584794940 Active Not Available [facility] 4 18:07:29 History of SARS-CoV -2 29622057049 0761597 Active 2021 Not Available [facility] 4 18:07:29 History of being under immunize d 41370988413 9104 Active 2019 Not Available [facility] 4 18:07:28 Obstruct rogelio sleep apnea of adult 39254713900 03 Active 2022 Not Available [facility] 4 18:07:28 Body mass index 30+ - obesity 990525487 Active 2022 Rosaura Tim MD Attn: Accounting ,[address] [place], [address] , [facility] 4 13:04:00 Insomnia 260909409 Active 2015 Not Available [facility] 4 18:07:28 Gastroes ophageal reflux disease without esophagi tis 132016121 Active 2015 Not Available [facility] 4 18:07:29 Essentia l hyperten jose j 30456937 Active 2015 Not Available [facility] 4 18:07:29 Screenin g mammogra phy Completed 201308/08/2013 Location : None;Sev erity: Moderate ;Progres s: Stable;A dded By: Rosaura Tim;Add to Current Problems : NO Not Available [facility] 7 11:59:14 Epidermo id cyst of skin 717367374 Completed 201202/04/2014 Location : None;Sev erity: Moderate ;Progres s: Stable;A dded By: Rosaura Tim;Add to Current Problems : NO Not Available [facility] 7 11:59:14 Allergic rhinitis caused by pollen 39257468 Completed 201303/07/2014 Location : None;Sev erity: Moderate ;Progres s: Stable;A dded By: Rosaura Tim;Add to Current Problems : YES Not Available [facility] 7 11:59:14 Asthma 783920469 Active 2011 Location : None;Sev erity: Moderate ;Progres s: Stable;A dded By: Rosaura Tim;Add to Current Problems : YES Not Available [facility] 4 18:07:28 Postmeno pausal bleeding 71651420 Completed 201305/01/2014 Location : None;Sev erity: Moderate ;Progres s: Stable;A dded By: Rosaura Tim;Add to Current Problems : YES Not Available [facility] 7 11:59:15 Screenin g for malignan t neoplasm of colon Active 2014 Location : None;Sev erity: Moderate ;Progres s: Stable;A dded By: Rosaura Tim;Add to Current Problems : YES Not Available [facility] 4 18:07:29 Angioede ma 00342879 Completed 201511/06/2015 Location : None;Sev erity: Moderate ;Progres s: Stable;A dded By: Rosaura Tmi;Add to Current Problems : YES Not Available [facility] 7 11:59:15 Atopic dermatit is 35348369 Active 2015 Location : None;Sev erity: Moderate ;Progres s: Stable;A dded By: Rosaura Tim;Add to Current Problems : YES Not Available [facility] 4 18:07:29 Pityrias is versicol or 97439103 Completed 201511/06/2015 Location : None;Sev erity: Moderate ;Progres s: Stable;A dded By: Rosaura Tim;Add to Current Problems : YES Not Available [facility] 7 11:59:15 Disorder of teeth AND/OR supporti [facility] ([place], [place]) 055152672 Completed 201509/23/2016 Location : None;Sev erity: Moderate ;Progres s: Stable;A dded By: Rosaura Tim;Add to Current Problems : YES Rosaura Tim MD Attn: [place], [address] , [facility] 7 15:05:07 Allergic rhinitis caused by pollen 45879847 Completed 201112/28/2011 Location : None;Sev erity: Moderate ;Progres s: Stable;A dded By: Anne Del Angel;Add to Current Problems : NO Not Available [facility] 7 11:59:15 Diaphrag matic hernia 82861660 Active 2013 Location : None;Sev erity: Moderate ;Progres s: Stable;A dded By: Shannon Webster;Add to Current Problems : NO Not Available [facility] 4 18:07:29 Acute cystitis 81933679 Completed 201304/02/2014 Location : None;Sev erity: Moderate ;Progres s: Stable;A dded By: Yamila Sheppard;Add to Current Problems : YES Not Available [facility] 7 11:59:15 Screenin g for malignan t neoplasm of colon Completed 201202/04/2014 Location : None;Sev erity: Moderate ;Progres s: Stable;A dded By: Angelique Kong;Add to Current Problems : NO Not Available [facility] 7 11:59:15 Eruption 132445655 Completed 201504/30/2015 Location : None;Sev erity: Moderate ;Progres s: Stable;A dded By: Kaylyn Amin; Add to Current Problems : YES Not Available [facility] 7 11:59:15 Edema of eyelid 96465250 Completed 201501/12/2016 Location : None;Sev erity: Moderate ;Progres s: Stable;A dded By: Kaylyn Amin; Add to Current Problems : NO Not Available [facility] 7 11:59:16 General symptom 385443012 Completed 201109/23/2016 Location : None;Sev erity: Moderate ;Progres s: Stable;A dded By: Any Salvador i;Devon dd to Current Problems : NO Rosaura Tim MD Attn: [place], [address] , [facility] 15:05:15 Atrophic vaginiti s 98108850 Completed 201202/04/2014 Location : None;Sev erity: Moderate ;Progres s: Stable;A dded By: Any Salvador i;A dd to Current Problems : NO Not Available [facility] 7 11:59:16 Benign essentia l hyperten jose j 7636847 Completed 201102/04/2014 Location : None;Sev erity: Moderate ;Progres s: Stable;A dded By: Any Salvador i;A dd to Current Problems : YES Rosaura Tim MD Attn: Accounting ,[address] [place], [address] , [facility] 7 15:11:38 Acute bronchit is 04842870 Completed 201302/04/2014 Location : None;Sev erity: Moderate ;Progres s: Stable;A dded By: Any Salvador i;A dd to Current Problems : YES Not Available [facility] [facility] 7 11:59:16 Hypothyr oidism [id number] Active 2011 Location : None;Sev erity: Moderate ;Progres s: Stable;A dded By: Any Salvador i;A dd to Current Problems : YES Not Available [facility] 4 18:07:29 Acute sinusiti s [id number] Completed 201403/30/2015 Location : None;Sev erity: Moderate ;Progres s: Stable;A dded By: Any Salvador i;A dd to Current Problems : YES Not Available [facility] 7 11:59:16 Benign essentia l hyperten jose j [id number] Completed 201109/23/2016 Location : None;Sev erity: Moderate ;Progres s: Stable;A dded By: Any Salvador i;A dd to Current Problems : YES Rosaura Tim MD Attn: Accounting ,[address] [place], [address] , [facility] 7 15:11:38 Transien t insomnia [id number] Completed 201511/06/2015 Location : None;Sev erity: Moderate ;Progres s: Stable;A dded By: Any Salvador i;A dd to Current Problems : YES Not Available [facility] 7 11:59:16 Abscess of vulva [id number] Completed 201210/23/2012 Location : None;Sev erity: Moderate ;Progres s: Stable;A dded By: Shannon Webster;Add to Current Problems : NO Not Available [facility] 7 11:59:17 Nonvenom ous insect bite of multiple sites [id number] Completed 201202/04/2014 Location : None;Sev erity: Moderate ;Progres s: Stable;A dded By: Rani Dia;Add to Current Problems : NO Not Available [facility] 7 11:59:17 Abdomina l pain [id number] Completed 201210/23/2012 Location : None;Sev erity: Moderate ;Progres s: Stable;A dded By: Sulema Ruiz;Add to Current Problems : NO Not Available [facility] 7 11:59:17 Impacted cerumen [id number] Completed 201210/23/2012 Location : None;Sev erity: Moderate ;Progres s: Stable;A dded By: Sulema Ruiz;Add to Current Problems : NO Not Available [facility] 7 11:59:17 Subjecti ve tinnitus [id number] Completed 201210/23/2012 Location : None;Sev erity: Moderate ;Progres s: Stable;A dded By: Sulema Ruiz;Add to Current Problems : NO Not Available [facility] 7 11:59:17 Methicil joey resistan t Staphylo coccus aureus infectio n [id number] Completed 201202/04/2014 Location : None;Sev erity: Moderate ;Progres s: Stable;A dded By: ParentSulema;Add to Current Problems : NO Not Available [facility] 7 11:59:17 Hyperlip idemia screenin g Completed 201302/04/2014 Location : None;Sev erity: Moderate ;Progres s: Stable;A dded By: Jeanine Romero;Add to Current Problems : NO Not Available [facility] 7 11:59:17 Gastroes ophageal reflux disease [id number] Completed 201109/23/2016 Location : None;Sev erity: Moderate ;Progres s: Stable;A dded By: Rosaura Tim;Add to Current Problems : NO Rosaura Tim MD Attn: Accounting ,[address] [place], [address] , [facility] 7 15:05:37 Urge incontin ence of urine [id number] Completed 201111/17/2011 Location : None;Sev erity: Moderate ;Progres s: Stable;A dded By: Rosaura Tim;Add to Current Problems : NO Not Available [facility] 7 11:59:23 Anxiety state [id number] Completed 201207/26/2012 Location : None;Sev erity: Moderate ;Progres s: Stable;A dded By: Rosaura Tim;Add to Current Problems : NO Not Available [facility] 7 11:59:23 Localize d sclerode rma 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 Procedures Surgical History Date Name Laterality Status Provider Name and Address Organization Details Recorded Time 4 biopsy of breast completed Rosaura Tim MD Attn: Accounting,[address] [place], [address], [facility] 11/18/2023 17:19:19 4 excision of skin cyst completed Rosaura Tim MD Attn: Accounting,[address] [place], [address], [facility] 12/07/2019 17:04:06 4 excision of cyst completed Rosaura Tim MD Attn: Accounting,[address], [place], [address], [place] 12/07/2019 17:04:48 Imaging Results Imaging Date Name Status LastModified by Organiz atcounts include 234 beds at the [facility] Details LastModified Time 10/21/2022 mg screening W nikko martha digi completed [address] (Imaging & Mammogram) [address] [place] [address], [address], 10/21/2022 19:43:50 10/21/2022 MAMMO, screening, bilateral completed [address], [address], 10/26/2022 12:35:50 10/22/2022 bone density/dexa completed [facility] (Imaging & Mammogram) [address] [place] [address], [address], 10/22/2022 13:56:30 10/21/2022 DEXA completed [address], [address], 10/22/2022 14:02:10 03/02/2023 xr ribs lt+Pa chest completed [address] (Imaging & Mammogram) [employer] [place], [address], 03/03/2023 08:35:05 03/02/2023 xr knee RT min 4V completed [address] (Imaging & Mammogram) [address] [place] [address], [address], 03/03/2023 08:35:06 03/02/2023 CT ABD+pel wo con completed [address] (Imaging & Mammogram) [address] [place] [address], [address], 03/03/2023 08:35:06 08/21/2023 XR, femur, 2 or more view completed [address] (Imaging & Mammogram) [address] [place], [address], 08/21/2023 14:18:07 10/22/2023 US, doppler, venous completed [facility] [address] [place], [address], 10/29/2023 21:29:31 10/24/2023 mg screening W nikko martha digi completed [facility] (Imaging & Mammogram) [address] [place], [address], 10/29/2023 21:29:31 11/18/2023 imaging/diagno stic result completed banner Information not available 06/08/2024 17:04:27 12/12/2023 usv venous reflux low martha completed [address] (Imaging & Mammogram) [address] [place], [address], 06/08/2024 17:04:27 01/28/2024 XR, chest, 2 view completed [address] (Imaging & Mammogram) [employer] [place], [address], 06/08/2024 17:04:26 01/28/2024 XR, chest, 2 view completed [address] - Radiology [address] [place], [address], 06/08/2024 17:04:27 02/18/2024 xr foot lt 3V completed [address] (Imaging & Mammogram) [address] [place] [address], [address], 06/08/2024 17:04:26 02/17/2024 XR, foot, 3 or more view completed [address] [address] [place], [address], 06/08/2024 17:04:26 Procedure Notes None recorded. Medical Equipment None Reported. Allergies Allergen ID Allergen Name Allergen Category Reaction Reaction Severity Criticality Documentation Date Start Date Code Code System Note Provider Name and Address Organization Details Recorded Time 599303 lemon extract food Not available Not available Not available 06/02/2017 72543 91 RxNorm throa t itchi ng, swell ing Any Bautista ma null, [place] - [facility] 8 15:31:31 926041 aspirin medicatio n hives Not available Not available 06/02/2017 1191 RxNorm throa t, lips swell ing Any Bautista [place], [place] [facility] 8 15:33:03 649605 azithromy juan medicatio n swelling Not available Not available 06/05/20172018 90639 RxNorm Edilberto Akaba null, [place] - [facility] 3 09:41:29 627311 Claravis medicatio n Not available Not available Not available 09/11/2018 76251 4 RxNorm Dry Eyes, heada ches, cold child s,mus shanti spasm s, sunbu rn feeli ng all over body Rosaura Tim MD Attn: Swetha zambrano,[address] [place], [address], [place] - [facility] 0 19:28:01 335077 mold extract environme nt hives Not available Not available 10/18/20192019 45978 8 RxNorm Rosaura Tim MD Attn: Swetha zambrano,[address] [place], [address], [place] - [facility] 0 13:19:37 149586 pistachio nut allergeni c extract food Not available Not available Not available 12/12/2019 59196 6 RxNorm Rosaura Tim MD Attn: Swetha g,[address] [place], [address], [place] - [facility] 0 19:26:30 783915 macadamia oil food Not available Not available Not available 12/12/2019 37783 56 RxNorm Rosaura Tim MD Attn: Swetha kenya,[address] [facility], [place], [address], [place] [facility] 0 19:26:39 841817 Canis lupus familiari s extract environme nt Not available Not available Not available 02/19/2022 27429 4 RxNorm FANY Tadeo, [place] - [facility] 2 11:57:08 491652 honey bee venom medicatio n Not available Not available Not available 02/19/2022 33016 7 RxNorm FANY [place], [place] [facility] 2 11:57:20 874694 cranberry preparati on food,medi cation anaphylax is Not available Not available 02/19/2022 43487 3 RxNorm FANY [place], [place] [facility] 2 11:57:48 383634 Bactrim medicatio n Not available Not available Not available 02/19/2022 91384 9 RxNorm Khai Sullivan [place] null, [place] [facility] 2 11:58:02 676123 nut - unspecifi ed food anaphylax is Not available Not available 02/19/2022 91201 UNK Khai Sullivan [place], [place] [facility] 2 11:58:23 982058 steviosid e medicatio n Not available Not available Not available 02/19/2022 25278 RxNorm Khai Sullivan [place], [place] [facility] 2 11:58:45 196849 lidocaine medicatio n anaphylax is severe Not available 10/15/20222018 6387 RxNorm Edilberto Akaba [place] [facility] 3 09:41:29 301063 aluminum aspirin Not available hives moderate Not available 10/15/20222018 611 RxNorm Edilberto [place] [facility] 3 09:41:29 552384 pseudoeph edrine Not available Not available Not available Not available 10/15/20222020 8896 RxNorm Other react ions and sever ities : 'Unkn own'. Edilberto davidson, [place] [facility] 3 09:41:29 654481 isotretin oin medicatio n Not available Not available Not available 10/15/20222020 6064 RxNorm Other react ions and sever ities : 'Eyes Water & Itch' . Edilberto Nielsenaba [place], [place] - [facility] 3 09:41:29 984357 mold extract medicatio n hives Not available Not available 10/15/20222020 48017 8 RxNorm Edilberto Nielsenaba [place] [facility] 3 09:41:29 107371 omeprazol e medicatio n Not available Not available Not available 10/15/20222020 7646 RxNorm Other react ions and sever ities : 'Unkn own'. Edilberto Nielsenaba [place], [place] [facility] 3 09:41:29 390164 procaine medicatio n vomiting Not available Not available 10/15/20222018 8701 RxNorm Edilberto Nielsenaba [place] [facility] 3 09:41:29 261508 sunflower oil food,medi cation Not available Not available Not available 10/15/20222020 80709 RxNorm Other react ions and sever ities : 'Unkn own'. Edilberto Nielsenaba [place], [place] [facility] 3 09:41:29 311696 Mycobacte rium phlei Not available Not available Not available Not available 10/15/20222020 06467 07 RxNorm Other react ions and sever ities : 'Unkn own'. Edilberto Akaba [place], [place] - [facility] 3 09:41:29 276211 ropinirol e medicatio n other Not available Not available 01/21/2023 77418 RxNorm repor ts med made her sick Rosaura Tim MD Attn: Swetha zambrano,[address] [facility], [place], [address], [place] - [facility] 4 14:01:23 989022 oxybutyni n medicatio n abdominal pain Not available Not available 01/21/2023 04342 RxNorm Rosaura Tim MD Attn: Swetha zambrano,[address] [facility] [facility], [place], [address], [place] - [facility] 4 14:01:23 27422 banana extract food,medi cation angioedem a Not available Not available 03/19/20162020 25144 9 RxNorm Edilberto Akreed [place] [facility] 3 09:41:29 50105 egg extract food,medi cation Not available Not available Not available 03/19/2016 01861 15 RxNorm [place] Bautista [place] [facility] 6 10:49:47 95796 cat dander environme nt Not available Not available Not available 03/19/2016 93543 UNK Any Bautista [place] [facility] 6 10:49:50 02724 latex environme nt,medica tion vomiting Not available Not available 03/19/20162018 53374 91 RxNorm Edilberto Brouss[place] [facility] 3 09:41:29 78971 wasp venoms environme nt Not available Not available Not available 03/19/2016 02705 RxNorm [place] [facility] 6 10:50:07 91914 Vaccine product containin g only Influenza virus antigen (medicina l product) medicatio n Not available Not available Not available 03/19/2016 53084 82993 105 SNOMED Any Bautista [place] [facility] 6 10:50:28 84379 procaine hydrochlo ride medicatio n Not available Not available Not available 03/19/2016 39901 8 RxNorm [place] B[place] [facility] 6 10:50:36 13686 purified protein derivativ e of tuberculi n medicatio n Not available Not available Not available 03/19/2016 8948 RxNorm Any B[place] [facility] 6 10:50:45 84245 Prilosec medicatio n Not available Not available Not available 03/19/2016 44857 5 RxNorm [place] B[place] [facility] 6 10:50:53 82721 sulfameth oxazole / trimethop rim medicatio n Not available Not available Not available 03/19/2016 36062 RxNorm Any B[place] [facility] 6 10:51:13 34755 Sudafed medicatio n Not available Not available Not available 03/19/201642587 2 RxNorm Any B[place] [facility] 6 10:51:18 39785 sunflower seed extract food Not available Not available Not available 03/19/2016 96668 91 RxNorm [place] B[place] [facility] 6 10:51:26 97791 honey bee venom environme nt Not available Not available Not available 03/27/20162011 44277 7 RxNorm Sever ity: Moder ate; Comme nt: Aller gy Type: Aller gy; Not Available [facility] 7 03:48:28 Medications Name Sig Start Date Stop Date Status Note LastModified by Organization Details LastModified Time cefdinir 300 mg caps 10/09 completed Not Available Not Available Not Available zolpidem tartrate 10 mg tabs 10/09 completed Not Available Not Available Not Available epinephri ne 0.3 mg/0.3ml soaj 10/20 completed Not Available Not Available Not Available levothyro xine sodium 100 mcg tabs 10/09 completed Not Available Not Available Not Available ventolin hfa 108 (90 base) mcg/actae rs 10/20 completed Not Available Not Available Not Available amoxicill in 875 mg tabs 10/09 completed Not Available Not Available Not Available potassium chloride er 10 meq tbcr 10/09 completed Not Available Not Available Not Available triamtere ne/hydroc hlorothia zide 37.5-25 mg tabs 10/09 completed Not Available Not Available Not Available famotidin e 40 mg tabs 10/09 completed Not Available Not Available Not Available amlodipin e besylate 10 mg tabs 10/09 completed Not Available Not Available Not Available clobetaso l propionat e 0.05 % crea 10/09 completed Not Available Not Available Not Available clobetaso l propionat e 0.05 % oint 10/09 completed Not Available Not Available Not Available azithromy juan 250 mg tabs 10/09 completed Not Available Not Available Not Available tacrolimu s 0.1 % oint 10/09 completed Not Available Not Available Not Available cefuroxim e axetil 250 mg tabs 10/09 completed Not Available Not Available Not Available amoxicill in 500 mg capsule active Not Available Not Available Not Available fluconazo le 100 mg tablet 03/19 completed Not Available Not Available Not Available Augmentin 875 mg-125 mg tablet take 1 pill BID for 14 days. 07/07 completed RxNorm: 792707;A simon Substitu tion: True Not Available Not Available Not Available prednison e 10 mg tablet 10/15 completed Not Available Not Available Not Available cefuroxim e axetil 250 mg tablet TAKE 1 TABLET BY MOUTH EVERY 12 HOURS FOR 7 DAYS 05/15 completed Not Available Not Available Not Available ropinirol e 1 mg tablet Take 1 tablet every day by oral route in the evening. 01/21 completed making patient sick Not Available Not Available Not Available clindamyc in HCl 300 mg capsule Take 1 capsule every 6 hours by oral route. 10/15 completed Per dentist Not Available Not Available Not Available albuterol sulfate 2.5 mg/3 mL (0.083 %) solution for nebulizat ion USE 1 VIAL VIA NEBULIZE R THREE TIMES DAILY active Not Available Not Available No t Available ketoconaz ole 200 mg tablet Take 1 tablet(s ) by mouth daily 03/19 completed Not Available Not Available Not Available oxybutyni n chloride ER 10 mg tablet,ex tended release 24 hr TAKE 1 TABLET BY MOUTH EVERY DAY AT BEDTIME 01/21 completed stomach pain Not Available Not Available Not Available azithromy juan 250 mg tablet Take 2 tablet(s ) by mouth on day 1 then 1 tablet every day for the next 4 days. 10/09 completed Not Available Not Available Not Available indapamid e 2.5 mg tablet TAKE 1 TABLET BY MOUTH EVERY DAY 12/23 completed Not Available Not Available Not Available benzonata te 200 mg capsule TAKE 1 CAPSULE BY MOUTH THREE TIMES DAILY FOR 10 DAYS NEEDED active Not Available Not Available No t Available hydrocodo ne 5 mg-acetam inophen 325 mg tablet TAKE 1 TABLET BY MOUTH EVERY 6 HOURS NEEDED 11/17 completed Not Available Not Available Not Available famotidin e 40 mg tablet TAKE ONE TABLET BY MOUTH ONCE DAILY 03/12 completed Not Available Not Available Not Available prednison e 20 mg tablet take 2 a day for 5 days then 1 a day for 5 days 04/19 completed Not Available Not Available Not Available sertralin e 100 mg tablet Take 1.5 tablets every day by oral route. 2024 active Not Available Not Available Not Avai lable clobetaso l 0.05 % topical cream APPLY A THIN LAYER TO THE AFFECTED AREA(S) BY TOPICAL ROUTE 2 TIMES PER DAY 10/09 completed Not Available Not Available Not Available clindamyc in HCl 150 mg capsule 03/02 completed Not Available Not Available Not Available penicilli n V potassium 500 mg tablet Take 1 tab by mouth QID x 7 days 01/11 completed RxNorm: 147246;A llow Substitu tion: True Not Available Not Available Not Available potassium chloride ER 10 mEq tablet,ex tended release Take 2 now and 2 today at bedtime 04/20 completed Not Available Not Available Not Available Zyrtec 10 mg tablet Take 1 tablet every day by oral route in the morning. 04/10 completed Not Available Not Available Not Available fexofenad ine 180 mg tablet Take 1 tablet every day by oral route in the morning. 12/01 completed Not Available Not Available Not Available aspirin 81 mg tablet,de layed release Take one tablet PO daily 09/06 completed RxNorm: 025615;A llow Substitu tion: True Not Available Not Available Not Available triamcino lone acetonide 0.1 % topical cream APPLY A THIN LAYER TO THE AFFECTED AREA(S) BY TOPICAL ROUTE 2 TIMES PER DAY 10/20 completed Not Available Not Available Not Available Alocril 2 % eye drops Instill 2 gtts into each eye bid 09/06 completed RxNorm: 759595;A llow Substitu tion: True Not Available Not Available Not Available ondansetr on 8 mg disintegr ating tablet Place 1 tablet every 8 hours by translin gual route as needed for 5 days. 06/02 completed Not Available Not Available Not Available Macrobid 100 mg capsule Take 1 capsule( s) by mouth bid 05/01 completed RxNorm: 162576;A llow Substitu tion: True Not Available Not Available Not Available meloxicam 7.5 mg tablet 7.5 mg by oral route. 01/21 completed Not Available Not Available Not Available levothyro xine 100 mcg tablet TAKE 1 TABLET BY MOUTH EVERY DAY active Not Available Not Available No t Available terbinafi ne HCl 250 mg tablet TAKE 1 TABLET BY MOUTH EVERY DAY 01/21 completed Not Available Not Available Not Available amoxicill in 875 mg tablet Take 1 tablet(s ) by mouth q12h for 10 days 06/08 completed Not Available Not Available Not Available famotidin e 20 mg tablet TAKE 2 TABLETS BY MOUTH EVERY DAY NEEDED active Not Available Not Available No t Available baclofen 10 mg tablet 04/23 completed Not Available Not Available Not Available amlodipin e 10 mg tablet TAKE 1 TABLET BY MOUTH EVERY DAY active Not Available Not Available No t Available hydrocodo ne 7.5 mg-acetam inophen 325 mg tablet Take 1 to 2 tablet(s ) by mouth q 4 to 6 hr prn 10/26 completed RxNorm: 976655;A llow Substitu tion: True Not Available Not Available Not Available econazole nitrate 1 % topical cream 04/10 completed Not Available Not Available Not Available ropinirol e 2 mg tablet TAKE 1 TABLET BY MOUTH EVERY DAY IN THE EVENING 04/10 completed Not Available Not Available Not Available pantopraz ole 40 mg tablet,de layed release Take 1 tab po daily as needed 09/06 completed RxNorm: 093015;A llow Substitu tion: True Not Available Not Available Not Available diphenhyd ramine 25 mg capsule Take 2 capsules every day by oral route at bedtime. 01/12 completed Not Available Not Available Not Available tacrolimu s 0.1 % topical ointment APPLY TO RASH ON BODY TWICE DAILY 06/08 completed Not Available Not Available Not Available Cefzil 250 mg tablet Take 1 tablet(s ) by mouth q12h for 10 days 01/05 completed RxNorm: 969739;A llow Substitu tion: True Not Available Not Available Not Available Cipro 500 mg tablet Take 1 tablet(s ) by mouth q12h for 10 days 02/10 completed RxNorm: 798713;A llow Substitu tion: True Not Available Not Available Not Available triamcino lone acetonide 0.1 % topical ointment Apply thin film to affected area bid 07/07 completed RxNorm: 3838505; Allow Substitu tion: True Not Available Not Available Not Available prednison e 50 mg tablet 06/02 completed Not Available Not Available Not Available vancomyci n 250 mg capsule EMPTY ONE CAPSULE INTO FOOTBATH AND SOAK FEET FOR 15-30 MINUTES ONCE DAILY 10/15 completed Not Available Not Available Not Available indapamid e 1.25 mg tablet TAKE 1 TABLET BY MOUTH EVERY DAY active Not Available Not Available No t Available Xenical 120 mg capsule take one cap po TID AC 04/10 completed Not Available Not Available Not Available docusate sodium 100 mg capsule TAKE 1 CAPSULE BY MOUTH THREE TIMES DAILY NEEDED 11/17 completed Not Available Not Available Not Available oxybutyni n chloride ER 5 mg tablet,ex tended release 24 hr TAKE 1 TABLET BY MOUTH EVERY DAY active Not Available Not Available No t Available triamtere ne 37.5 mg-hydroc hlorothia zide 25 mg tablet TAKE 1 TABLET BY MOUTH EVERY DAY 12/01 completed Not Available Not Available Not Available hydrocort isone 2.5 % topical cream APPLY THIN LAYER TOPICALL Y TO THE AFFECTED AREA TWICE DAILY active Not Available Not Available No t Available monteluka st 10 mg tablet TAKE 1 TABLET BY MOUTH EVERY DAY IN THE EVENING active Not Available Not Available No t Available hydroxyzi ne HCl 25 mg tablet TAKE 1 TABLET BY MOUTH FOUR TIMES DAILY NEEDED active Not Available Not Available No t Available zolpidem 5 mg tablet take 1/2 to 1 at bedtime as needed for insomnia 09/15 completed RxNorm: 806881;A llow Substitu tion: True Not Available Not Available Not Available Levaquin 500 mg tablet Take 1 tablet(s ) by mouth daily for 10 days 12/05 completed RxNorm: 759575;A llow Substitu tion: True Not Available Not Available Not Available clobetaso l 0.05 % topical ointment APPLY TOPICALL Y TO RASH TWICE DAILY 04/10 completed Not Available Not Available Not Available epinephri ne 0.3 mg/0.3 mL injection , auto-inje ctor INJECT 1 PEN IN THE MUSCLE ONE TIME DIRECTED active Not Available Not Available No t Available estradiol 0.01% (0.1 mg/gram) vaginal cream one applicat orful twice a week intravag inally 07/06 completed Allow Substitu tion: True Not Available Not Available Not Available zolpidem 10 mg tablet Take 1/2 - 1 tab po at bedtime prn 03/25 completed Not Available Not Available Not Available methylpre dnisolone 4 mg tablets in a dose pack Take as directed 12/01 completed Not Available Not Available Not Available albuterol sulfate HFA 90 mcg/actua tion aerosol inhaler INHALE 2 PUFFS BY MOUTH EVERY 4 HOURS active Not Available Not Available No t Available ketoconaz ole 2 % topical cream APPLY EXTERNAL LY TO THE AFFECTED AREA TWICE DAILY NEEDED 02/19 completed Not Available Not Available Not Available PreviDent 5000 Plus 1.1 % cream APPLY 1-2 TIMES DAILY TOOTHPAS TE active Not Available Not Available No t Available ondansetr on 4 mg disintegr ating tablet 04/23 completed Not Available Not Available Not Available cefdinir 300 mg capsule Take 1 capsule every 12 hours by oral route for 7 days. 06/22 completed Not Available Not Available Not Available fluticaso ne propionat e 50 mcg/actua tion nasal spray,jacky pension [place] 1 spray every day by intranas al route. 04/20 completed Not Available Not Available Not Available sertralin e 50 mg tablet TAKE 1 TABLET BY MOUTH DAILY IN THE MORNING 10/15 completed Not Available Not Available Not Available ipratropi um bromide 21 mcg (0.03 %) nasal spray SPRAY 2 SPRAYS IN EACH NOSTRIL TWICE DAILY active Not Available Not Available No t Available naproxen 500 mg tablet Take 1 po bid as needed 10/26 completed RxNorm: 047998;A llow Substitu tion: True Not Available Not Available Not Available spironola ctone 50 mg tablet TAKE 1 TABLET BY MOUTH TWICE DAILY active Not Available Not Available No t Available Lotemax 0.5 % eye drops,jacky pension INSTILL 1 DROP INTO AFFECTED EYE(S) BY OPHTHALM IC ROUTE 3 TIMES PER DAY 10/20 completed Not Available Not Available Not Available mometason e 0.1 % topical cream 03/19 completed Not Available Not Available Not Available Claravis 20 mg capsule 09/11 completed Not Available Not Available Not Available Claravis 40 mg capsule 04/19 completed Not Available Not Available Not Available potassium chloride ER 10 mEq tablet,ex tended release(p art/cryst ) TAKE 1 TABLET BY MOUTH EVERY DAY 04/10 completed Not Available Not Available Not Available Systane (PF) 0.4 %-0.3 % eye drops in a dropperet te 04/10 completed Not Available Not Available Not Available chlorhexi dine gluconate 0.12 % mouthwash 04/10 completed Not Available Not Available Not Available clobetaso l 0.05 % topical spray APPLY TO RASH ON BACK DAILY 04/10 completed Not Available Not Available Not Available Proventil HFA 11/26 completed RxNorm: [id number];A llow Substitu tion: True Not Available Not Available Not Available Tears Plus active OASIS from eye doctor Not Available Not Available Not Available calcium citrate 06/02 completed Not Available Not Available Not Available Pataday 0.2 % eye drops INSTILL 1 DROP INTO AFFECTED EYE(S) BY OPHTHALM IC ROUTE ONCE DAILY 02/09 completed Not Available Not Available Not Available Alaway 0.025 % (0.035 %) eye drops INSTILL 1 DROP INTO AFFECTED EYE(S) BY OPHTHALM IC ROUTE 2 TIMES PER DAY 02/09 completed Not Available Not Available Not Available Zyrtec 10 mg capsule Take 1 capsule every day by oral route at bedtime. 03/25 completed Not Available Not Available Not Available Refresh P.M. (lanolin) eye ointment at bedtime active Not Available Not Available No t Available melatonin 10 mg tablet Take 1 tablet every day by oral route at bedtime. 04/10 completed Not Available Not Available Not Available Lotemax 0.5 % eye gel drops 10/20 completed Not Available Not Available Not Available Xiidra 5 % eye drops in a dropperet te INSTILL 1 DROP IN BOTH EYES TWICE DAILY 02/09 completed Not Available Not Available Not Available baclofen 5 mg tablet TAKE 1 TABLET BY MOUTH THREE TIMES DAILY NEEDED active Not Available Not Available No t Available Refresh Relieva PF 0.5 %-1 % eye drops in a dropperet te bid 04/10 completed Not Available Not Available Not Available Pataday Once Daily Relief 0.7 % eye drops INSTILL 1 DROP INTO AFFECTED EYE(S) BY OPHTHALM IC ROUTE twice DAILY active Not Available Not Available No t Available BinaxNOW COVID-19 Ag Self Test kit Use as Directed on the Package 06/06 completed Not Available Not Available Not Available Wegovy 2.4 mg/0.75 mL subcutane ous pen injector 04/10 completed Not Available Not Available Not Available Paxlovid 300 mg (150 mg x 2)-100 mg tablets in a dose pack TAKE 2 NIRMATRE LVIR TABLETS AND 1 RITONAVI R TABLET TOGETHER BY MOUTH TWICE DAILY FOR 5 DAYS active Not Available Not Available No t Available Vitals Date Recorded Body height Body mass index (BMI) Body weight Body temperature Oxygen saturation Oxygen saturation in Arterial blood by Pulse oximetry Heart rate Systolic blood pressure Diastolic blood pressure Provider Name and Address Organization Details Last Updated DateTime 3 165.1 cm 35.4 kg/m2 30014.1 7 g 96.6 [degF] 96 % 96 % 113 /min 130 mm[Hg] 84 mm[Hg] Avel Anne [place] - [facility] 3 11:14:17 Date Recorded Heart rate Systolic blood pressure Diastolic blood pressure Provider Name and Address Organization Details Last Updated DateTime 04/23/2022 92 /min 132 mm[Hg] 84 mm[Hg] Rosaura Tim MD Attn: [address] [place], [address], [facility] 04/23/2022 12:47:32 Date Recorded Body height Body mass index (BMI) Body weight Body temperature Oxygen saturation Oxygen saturation in Arterial blood by Pulse oximetry Heart rate Systolic blood pressure Diastolic blood pressure Provider Name and Address Organization Details Last Updated DateTime 3 165.1 cm 34.9 kg/m2 27821.4 g 97.7 [degF] 96 % 96 % 79 /min 130 mm[Hg] 81 mm[Hg] Ashia Alvarez MA [facility] 3 12:07:07 Date Recorded Systolic blood pressure Diastolic blood pressure Provider Name and Address Organization Details Last Updated DateTime 10/15/2022 134 mm[Hg] 76 mm[Hg] Rosaura Tim MD Attn: [address] [place], [address], [facility] 10/15/2022 12:58:58 Date Recorded Body height Body mass index (BMI) Body weight Oxygen saturation Oxygen saturation in Arterial blood by Pulse oximetry Heart rate Body temperature Systolic blood pressure Diastolic blood pressure Provider Name and Address Organization Details Last Updated DateTime 4 165.1 cm 40 kg/m2 110862. 27 g 99 % 99 % 54 /min 98 [degF] 143 mm[Hg] 80 mm[Hg] Rachel Pérez MA [facility] 4 16:15:14 Date Recorded Systolic blood pressure Diastolic blood pressure Provider Name and Address Organization Details Last Updated DateTime 11/18/2023 146 mm[Hg] 85 mm[Hg] Rosaura Tim MD Attn: [address] [place], [address], [facility] 11/18/2023 17:21:31 Date Recorded Body height Body mass index (BMI) Body weight Oxygen saturation Oxygen saturation in Arterial blood by Pulse oximetry Heart rate Body temperature Systolic blood pressure Diastolic blood pressure Provider Name and Address Organization Details Last Updated DateTime 5 165.1 cm 40.5 kg/m2 097982. 75 g 95 % 95 % 95 /min 97.8 [degF] 162 mm[Hg] 101 mm[Hg] Rachel FANY Pérez [facility] 15:48:46 Date Recorded Systolic blood pressure Diastolic blood pressure Provider Name and Address Organization Details Last Updated DateTime 06/08/2024 141 mm[Hg] 80 mm[Hg] Rosaura Tim MD Attn: [address] [place], [address], [facility] 06/08/2024 17:02:19 Social History Question Answer Notes LastModified by Organizat ion Details LastModified Time Tobacco Smoking Status Former Smoker Any Gregorio stuart, [facility] 03/19/2016 10:49:14 Do You Have An Advance Directive? Yes Information not available 12/28/2020 What Is Your Level Of Alcohol Consumption? None Information not available 12/28/2020 Are You Blind Or Do You Have Difficulty Seeing? No Information not available 12/28/2020 What Is Your Level Of Caffeine Consumption? None Information not available 12/28/2020 In The 14 Days Before Symptom Onset, Have You Had Close Contact With A Laboratory-confir med COVID-19 While That Case Was Ill? No Information not available 12/28/2020 In The 14 Days Before Symptom Onset, Have You Had Close Contact With A Person Who Is Under Investigation For COVID-19 While That Person Was Ill? No Information not available 12/28/2020 Have You Been To An Area Known To Be High Risk For COVID-19? No Information not available 12/28/2020 Are You Currently Employed? No Information not available 12/28/2020 Are You Deaf Or Do You Have Serious Difficulty Hearing? Yes Information not available 10/18/2021 What Type Of Diet Are You Following? CARDIAC Information not available 12/28/2020 Do You Or Have You Ever Used E-cigarettes Or Vape? Never Used Electronic Cigarettes Information not available 04/20/2020 Are There Any Guns Present In Your Home? No Information not available 12/28/2020 What Was The Date Of Your Most Recent Tobacco Screening? 06/08/2024 Information not available 06/08/2024 How Many Children Do You Have? 4 Information not available 12/28/2020 What Is Your Relationship Status? Information not available 12/28/2020 Do You Use Your Seat Belt Or Car Seat Routinely? Yes Information not available 12/28/2020 Do You Have Smoke And Carbon Monoxide Detectors In Your Home? Yes Information not available 12/28/2020 Are You Passively Exposed To Smoke? No Information no t available 12/28/2020 Do You Or Have You Ever Used Smokeless Tobacco? Never Used Smokeless Tobacco Information not available 04/20/2020 How Much Tobacco Do You Smoke? No Information not available 11/18/2023 Do You Feel Stressed (tense, Restless, Nervous, Or Anxious, Or Unable To Sleep At Night)? [id number] Information not available 12/28/2020 Do You Use Any Illicit Or Recreational Drugs? No Information not available 12/28/2020 Do You Use Sunscreen Routinely? Yes Information not available 12/28/2020 On What Date Was Tobacco Cessation Counseling Provided? 06/08/2024 Information not available 06/08/2024 Sex: Female Functional Status Question Answer Note LastModified by Organizat ion Details LastModified Time Are you able to care for yourself? Yes Information not available 12/28/2020 What is your exercise level? Occasional Information not available 10/18/2021 Mental Status None recorded. Family History Relationship Description Onset Age of this Age Resolved Age Notes LastModified by Organization Details LastModified Time Unspecified Relation Hypertensive disorder hreedma Not available 2015 15:52:32 Unspecified Relation Mitral valve prolapse [email or web address] Not available 02/2018 12:35:58 Unspecified Relation Malignant neoplasm of lung [email or web address] Not available 02/2018 12:37:22 Unspecified Relation Malignant tumor of cervix matern al 1/2 great aunt Not available 06/08/2024 16:59:49 Maternal Grandmother Malignant tumor of breast [email or web address] Not available 02/2018 12:36:10 Maternal Grandmother Dementia ssadlowskima Not available 06/02/2017 12:37:37 Maternal Grandfather Leukemia ssadlowskima Not available 06/02/2017 12:36:19 Maternal Aunt Dementia ssadlowskima No t available 06/02/2017 12:37:37 Paternal Grandfather Type 2 diabetes mellitus [email or web address] Not available 02/2018 12:37:56 Sister Carcinoma of pancreas 27 she is alive at age 60 Not available 11/18/2023 17:17:07 Sister Glaucoma Not available 0 06/08/2024 17:05:32 Brother Malignant neoplasm of brain from [place] Not available 11/18/2023 17:17:42 Medical History Condition Response Acid Reflux (GERD) Y High Blood Pressure Y Thyroid Problems Y Asthma Y Allergies Y Gynecological History Statement/Question Response Menses Monthly N Obstetrics History GPAL:G 0 P 0 0 0 0 Immunizations Vaccine Type Date Status Note Provider Nam e and Address Organization Details Recorded Time Tdap 1 completed Rosaura Tim MD Attn: [address] [place], [address], [facility] 09/02/2023 13:04:06 COVID-19, mRNA, LNP-S, PF, 100 mcg/0.5mL dose or 50 mcg/0.25mL dose 1 completed Not Available [facility] 05/13/2023 18:07:29 COVID-19, mRNA, LNP-S, PF, 100 mcg/0.5mL dose or 50 mcg/0.25mL dose 1 completed Not Available [facility] 05/13/2023 18:07:29 COVID-19, mRNA, LNP-S, PF, 100 mcg/0.5mL dose or 50 mcg/0.25mL dose 2 completed Not Available [facility] 05/13/2023 18:07:29 zoster recombinant 3 completed Not Available [facility] 05/13/2023 18:07:29 Pneumococcal conjugate PCV20, polysaccharide [id number] conjugate, adjuvant, PF 3 completed Not Available [facility] 05/13/2023 18:07:29 Respiratory syncytial virus (RSV) vaccine, unspecified 3 completed Not Available [facility] 05/13/2023 18:07:30 Pneumococcal conjugate PCV 13 8 completed Not Available [facility] 04/10/2019 02:35:21 Tdap 0 completed Not Available [facility] 05/13/2023 18:07:30 pneumococcal polysaccharide PPV23 2 completed Not Available [facility] 05/13/2023 18:07:30 Td (adult), 2 Lf tetanus toxoid, preservative free, adsorbed 0 completed Not Available [facility] 05/13/2023 18:07:30 Past Encounters Encounter ID Performer Location Encounter Start Date Encounter Closed Date Diagnosis/Indication Diagnosis SNOMED-CT Code Diagnosis ICD10 Code Diagnosis Note [id number] Rosaura Tim MD [facility] [address] [place] [address] 03/19/2016 15:27:22 03/20/2016 09:57:49 Essential hypertension 42058317 I10 Hypothyroidism 80360145 E03.9 Gastroesop hageal reflux disease without esophagitis 576797044 K21.9 Insomnia 630943153 G47.0 0 Acute gastroenteritis 69 810138 K52.9 [id number] Rosaura Tim MD [facility] [address] [place] [address] 09/23/2016 14:09:35 09/23/2016 16:34:31 Essential hypertension 83384139 I10 no change Insomnia 498703905 G47.0 0 use sleeping med as needed 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 Get extra rest. IF not better-- Call for the chest XRAY. OK for 3 of the 325 mg tylenol. Note for work off 05/31-06/06 and return to work on 06/07/17 Hypothyroidism 80265712 E03.9 Essential hypertension 93428609 I10 need to get labs done-- plans for June 20 Plaque psoriasis 7034003 09 L40.0 [id number] Rosaura Tim MD [facility] [address] [facility] [address] [place] [address] 06/20/2017 09:27:15 06/20/2017 13:14:28 Hypothyroidism 80822910 E03.9 Essential hypertension 25147995 I10 Hyperlipid emia screening 116189928 Z13.371 [id number] Papa Haynes MD [facility] [address] [facility] [address] [place] [address] 07/10/2017 13:36:08 07/13/2017 10:54:07 Hyperlipidemia 14558221 E78.5 10 year CV risk is 5.9%, nonsmoker, nondiabeti c, although last two BSs 110 range, will check A1C in a month with lipids. Hyperglycemia 81819914 R 73.9 Administra tion of pneumococcal vaccine 61222000 Z23 [id number] Rosaura Tim MD [facility] [address] [facility] [address] [place] [address] 10/09/2017 18:13:19 10/10/2017 10:31:24 Hypothyroidism 35670959 E03.9 level needed again in June Essential hypertension 85148056 I10 no change-- doing well at this time Angioedema 75097897 T78. 3XXS Asthma 093652484 J45.90 9 routine care--no flu shot due to allergic HIV screening 680535208 Z11.4 Viral screening 52432534 4 Z11.59 History of osteopenia 47 1321086 Z87.39 needs recheck since osteopenic in the past Routine gy necologic examination done 1161975135 9101 Z01.419 agrees to PAP since last one was 2014-- no HPV screen then History of needle stick injury 245306193 Z87.828 to have viral screening as outlined above-- safety discussed [id number] Rosaura Tim MD [facility] [address] [place] [address] 10/22/2017 16:55:38 10/23/2017 08:53:11 Osteopenia 426579002 M85.80 [id number] Rosaura Tim MD [facility] [address] [place] [address] 04/09/2018 16:55:04 04/10/2018 08:18:58 Hypothyroidism 85346816 E03.9 level needed again in June Essential hypertension 92631722 I10 no change-- doing well at this time Angioedema of lips 56811 6008 T78.3XXD attempts to figure out cause of this problem-- may be the new pet?? Prediabetes 953294388 R7 3.03 Impacted c erumen in right ear 0842785789 548128 H61.21 [id number] Rosaura Tim MD [facility] [address] [place] [address] 10/20/2018 14:24:42 10/20/2018 15:38:29 Essential hypertension 61082058 I10 no change-- doing well at this time.. She is using Mrs. Dash-- I encourage to use Mrs Dash and not Sea Salt Prediabetes 259689724 R7 3.03 doing well with lowering the intake of carbohydra sonja Angioedema 07703151 T78. 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 I will check urine OXYLATES since concern about eating foods rich in OXYLATES is NOT advised and patient eating these foods Pain of ri ght shoulder joint 2082927317 9650880 M25.511 will check XRAY Pain of bi lateral hands 1784211108 2481480 M79.641 M79.642 will check XRAY [id number] Rosaura Tim MD [facility] [address] [place] [address] 01/12/2019 15:13:08 01/12/2019 16:00:35 Serous otitis media 01259435 H65.92 Hypercalcemia 01465977 E 83.52 pt states she is seeing wt daria Schmitt and he did not want her to have any labs done. I advised that she is on medicaton that her blood levels need to be checked. verbalized understand ing and will get lab done as requested. Essential hypertension 24401348 I10 on potassium, will get with cmp [id number] Rosaura Tim MD [facility] [address] [place] [address] 03/02/2019 16:10:35 03/03/2019 09:30:20 Angioedema 45428599 T78.3XXS routine refill of the famotidine for ANGIOEDEMA Anxiety 63716484 F41.9 use the as directed for the anxiety and it well also help with allergies Electrolyte imbalance 10 6370638 E87.8 your calcium level is back to NORMAL and we will recheck in 6 months [id number] Rosaura Tim MD [facility] [address] [place] [address] 04/19/2019 09:45:30 04/19/2019 12:19:32 Essential hypertension 59520004 I10 no change-- doing well at this time.. She is using Mrs. Dash-- I encourage to use Mrs Dash and not Sea Salt Angioedema 72126425 T78. 3XXS routine refill of the famotidine for ANGIOEDEMA Hypothyroidism 92578656 E03.9 level needed again and will have checked with other labs that are to screen for hereditary angioedema Hyperlipidemia 14992737 E78.5 Acquired d eformity of finger 87225124 M20.009 since non tender-- will check XRAY [id number] Rosaura Tim MD [facility] [address] [place] [address] 06/21/2019 11:24:56 06/21/2019 16:03:07 Anxiety disorder 748985314 F41.9 the symptoms that you are experienci ng are likely allergy related but also triggered by the stress in the local area related to COVID [id number] Rosaura Tim MD [facility] [address] [place] [address] 10/11/2019 10:20:53 10/11/2019 16:25:50 Allergy to food 066575138 T78.1XXA due to worsening issues now with CHICKEN and multiple other allergens- - will send to a new electronic warfare technical( had seen Dr Bravo in the past ) Essential hypertension 41294317 I10 no change-- doing well at this time.. She is using . Dash-- I encourage to use Mrs Dash and not Sea Salt Tinea pedis 9548552 B35. 3 Gastroesop hageal reflux disease without esophagitis 554528353 K21.9 using for hives Generalize d anxiety disorder 62337354 F41.1 using the hydroxyzin e for the anxiety and doing well with this med Chronic urticaria 162510 05 L50.8 Onychomycosis 333895879 B35.1 seeing requirements analyst for the toe nail [id number] Rosaura Tim MD [facility] [address] [facility] [address] [place] [address] 10/18/2019 11:32:34 10/18/2019 14:06:59 Acute urticaria 058623734 L50.9 cont with the antihistam ine and add steroid pack and see electronic warfare technical as advised at the last visit [id number] Rosaura Tim MD [facility] [address] [place] [address] 12/02/2019 10:16:11 12/06/2019 12:33:41 Benign essential hypertension 7783945 I10 will check the potassium- - if low-- I will change from Triam/HCTZ to spironalac tone Long-term drug therapy 599562126 Z79.899 will check the lab today with a UA as well since she is concerned about protein in urine History of anaphylaxis 8989297985 6190815 Z87.892 we reviewed reports from Dr Taylor and the findings or nut allergies -- there is not a contraindi cation to getting a TDAP since no egg in that vaccine and no trouble with it noted in the current or previous chart [id number] Rosaura Tim MD [facility] [address] [place] [address] 04/20/2020 13:19:47 04/21/2020 12:44:16 Essential hypertension 94983196 I10 routine refill-- due to very high BP reading today-- she reports she will check daily and forward readings in one week-- she admits to marked increase in anxiety and stress with her finances and in selling her house-- I will increase hydroxyzin e to QID and she will get to the gym to lower stress Hypothyroidism 42607436 E03.9 level needed- in September 2020 and will have checked with other labs Allergy to food 43849044 1 T78.1XXA stable at this time and Dr Graham has moved from the area-- I will assume refills for her Generalize d anxiety disorder 04673141 F41.1 get to gym, continue prayer, increase hydroxyzin e and follow up if continues anxiety [id number] Rosaura Tim MD [facility] [address] [place] [address] 10/20/2020 13:01:18 10/20/2020 15:53:18 Essential hypertension 10382376 I10 routine refill-- OK BP reading today-- she reports she will check daily and forward readingswi next visit Immunization advised 310 718973 Z71.9 I advised her to get COVID vaccine in hospital for close observatio n-- she will call to see about arranging- - OK for PFIZER Morbid obesity 225963082 E66.01 pt ed-- start Wegovy for obesity Lichen scl erosus et atrophicus 09643782 L90.0 routien refills needed-- sent to [id number] Rosaura Tim MD [facility] [address] [place] [address] 12/28/2020 15:09:27 12/29/2020 12:21:25 Influenza vaccination declined 305966349 Z28.21 pt is allergic. Furuncle of buttock 1243 0003 L02.32 no signs of infection. Continue to monitor. Pes anseri nus bursitis 65755605 M70.50 pt denies any pain, limited ROM, or signs of infection. No need for interventi on at this time. Continue to try to lose weight and avoid exercises that exacerbate swelling. Fissure in skin 90324365 R23.4 cracked foot with open wound. Pt sees requirements analyst and uses various medication s for foot. Has tried to use vaseline and lotions with no relief. Will continue to monitor and follow up with requirements analyst . Essential hypertension 45818684 I10 Pt BP elevated today, 160/100. Decrease amlodipine to 5mg. [id number] Rosaura Tim MD [facility] [address] [place] [address] 02/09/2021 13:50:48 02/12/2021 11:05:11 Essential hypertension 75954906 I10 Pt BP elevated today, 160/100. continue both the indapamide and the amlodipine follow up in 3 months. Lifestyle modificati on reviewed and instructed Prediabetes 577137328 R7 3.03 doing well with lowering the intake of carbohydra sonja-- check for low glycemic index fruits and avoid more than 4 per day Hypothyroidism 43578681 E03.9 had TSH in October-- will need recheck again in October Gastroesop hageal reflux disease without esophagitis 348053098 K21.9 stable -- weight loss discussed and no appetite suppressio n advised [id number] Rosaura Tim MD [facility] [address] [place] [address] 04/10/2021 09:55:58 04/11/2021 10:15:14 Essential hypertension 99276786 I10 continue both the indapamide and the amlodipine follow up in 6 months. 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 new start for running nose with meals-- trial for one month-- if effective- - cont-- if not effective- - OK to stop spray Asthma 144893751 J45.90 9 renew singular-- - noted that trouble with breathing when visiting [place] was leon portillo jorge-- will monotor this going forward-- no interventi on needed at this time Hypothyroidism 74929563 E03.9 had TSH in October-- will need recheck again in October 2021 [id number] Rosaura Tim MD [facility] [address] [place] [address] 10/18/2021 11:59:06 10/18/2021 15:26:30 Morbid obesity 589244712 E66.01 insurance would not pay for YARI-- she is NOT a candidate for stimulant agent Abnormalit y of nail of toe [id number] L60.8 84 days of this med for toe nails to see if beneficial -- her derm stated this nail change was due to her LICHEN SCLEROSIS Atopic dermatitis 160489 01 L20.9 Hypothyroidism 90947248 E03.9 had TSH in October-- will need recheck again in October 2021 Gastroesop hageal reflux disease without esophagitis 925842080 K21.9 stable -- weight loss discussed and no appetite suppressio n advised-- using H 2 sonia for GERD and for the allergies Long-term drug therapy 353465819 Z79.899 will check the lab today with a UA as well since she is concerned about protein in urine Essential hypertension 42792669 I10 will check labs fasting in the next 2 weeks [id number] Rosaura Tim MD [facility] [address] [place] [address] 01/21/2022 13:35:04 01/22/2022 09:09:48 Essential hypertension 79247917 I10 dose increase indapamide to 2.5 mg daily-- will see how renal function and electrolyt es ae doing Gastroesop hageal reflux disease without esophagitis 200230881 K21.9 stable -- weight loss discussed and no appetite suppressio n advised-- using H 2 sonia for GERD and for the allergies Chronic ki dney disease stage 3 201429382 N18.30 Generalize d anxiety disorder 87500446 F41.1 [id number] Rosaura Tim MD [facility] [address] [place] [address] 02/19/2022 11:12:40 02/20/2022 10:27:56 Essential hypertension 53462114 I10 no dose change of indapamide BP is OK today Prediabetes 722205967 R7 3.03 doing well with lowering the intake of carbohydra sonja-- check for low glycemic index fruits and avoid more than 4 per day-- needs a Hgb A1C Gastroesop hageal reflux disease without esophagitis 161743725 K21.9 stable -- weight loss discussed and no appetite suppressio n advised-- using H 2 sonia for GERD and for the allergies Secondary polycythemia 90741001 D75.1 planning to recheck in Feb with lab and will follow up pending outcome Long-term current use of diuretic 4147614609 8616509 Z79.899 the low potassium is likely due to the use of INDAPAMIDE -- I endorse continued eating of foods that are high in potasium [id number] Rosaura Tim MD [facility] [address] [place] [address] 04/23/2022 10:29:45 04/24/2022 12:11:58 Asthma 783050964 J45.909 Well controlled . Has been doing well on current regiment Hypothyroidism 61727056 E03.9 had TSH in November- - will need recheck again in November 2022 Essential hypertension 60414684 I10 no dose change of indapamide BP is OK today Atopic dermatitis 636575 01 L20.9 Long-term drug therapy 598806303 Z79.899 Hypokalemia 65265532 E87 .6 Post-acute COVID-19 1119 968511 U09.9 CDC guidelines suggest waiting up to 3 months after teating positive to COVID19 before receiving bivalent booster dose [id number] Rosaura Tim MD [facility] [address] [place] [address] 10/15/2022 10:40:52 10/15/2022 14:07:47 Hypothyroidism 21021815 E03.9 had TSH in November- - will need recheck again in November 2022-- order given Essential hypertension 80032615 I10 control is fine--no change Long-term drug therapy 686835145 Z79.899 lab done yesterday Hypokalemia 49472324 E87 .6 lab done yesterday with results pending- await results to determine if med change is needed Nocturia 342049323 R35.1 dose change made oxybutynin and effects/ side effects reviewed Posttrauma tic stress disorder 41224730 F43.10 Restless legs 59250287 G 25.81 routine refill going forward for RLSadvised her to speak to her sleep specialist if not controlled Administra tion of pneumococcal vaccine 96851637 Z23 advised prevnar since over 66 y/o now Viral screening 33768126 4 Z11.59 [facility] reports she had never had chicken pox-- agrees to check immunity and if non immune -- will need vaccine-- if immune-- will need SHINGRIX Body mass index 30+ - obesity 457889510 Z68.39 weight control endorsed [id number] Rosaura Tim MD [facility] [address] [place] [address] 04/10/2023 15:44:54 04/11/2023 10:27:11 Essential hypertension 45678550 I10 Hyperlipidemia 94212532 E78.5 Dependent edema 06663962 4 R60.0 [id number] Rosaura Tim MD [facility] [address] [place] [address] 11/18/2023 15:44:03 11/19/2023 10:48:49 Essential hypertension 37616069 I10 BP is OK and further follow up in 6 months advised Spinal stenosis 38349237 M48.00 routine refills-- taking predominan tly at and wants order to take as needed Gastroesop hageal reflux disease without esophagitis 518609577 K21.9 stable -- weight loss discussed and no appetite suppressio n advised-- using H 2 sonia for GERD and for the allergies Hypothyroidism 27328716 E03.9 had TSH in September 2022- will need recheck again in November 2023- order given-- she is to go to [place] to have test done-- order printed Gustatory rhinitis 38012 8003 J31.0 doing OK for running nose with meals Tinnitus of right ear 48 24170547 108 H93.11 Abnormal blood test 1512 319150 11045 R79.9 tripase elevation with since electronic warfare technical recommends to check TRIPASE levels once she has a reaction with hives-- she reports allergists concerned she is needing alternativ e thereapy Localized adiposity 2704 91598 E65 weight loss in imperative and losing 20-40 pounds advised Strain of muscle of left lower leg 0272956619 7505743 S86.912D will need update with follow up on how she is doing with SCDs and aquatic therapy [id number] Rosaura Tim MD [facility] [address] [place] [address] 06/08/2024 15:01:46 06/09/2024 10:13:23 Angioedema 42060106 T78.3XXS will renew EPIPEN since Posttrauma tic stress disorder 60923343 F43.10 routine refill SERTRALINE today Essential hypertension 33785088 I10 BP is OK wtih recheck and it appears from the computer that she has refills on SPIRONLACT ONE-- no refills sent today Gustatory rhinitis 16363 8003 J31.0 doing OK for running nose with meals-- wants to change to a 90 days rx At [facility] ed risk for cardiovascular event 012957786 Z91.[address] refer [address]i [address] for eval ( HTN and advancing age) -- she has symptoms that suggest HIATAL HERNIA and GERD-- pt advise Obesity 218137395 E66.9 discussed weight loss and Thyroid eye disease 2761 79487 E06.[address] see Dr Whitt per her ophth Gastroesop hageal reflux disease without esophagitis 159644366 K21.9 stable -- weight loss discussed again---an d no appetite suppressio n advised-- using H 2 sonia for GERD and for the allergies Health Concerns Section Related Observation LastModified by Organization Detai ls LastModified Time None Recorded Concern Status LastModified by Organization Details LastModified Time None Recorded Advance Directives Directive Y: Payers Encounter Date Sequence Insurance Name Policy Number Policy Whitt Covered Member ID Whitt Member ID Guarantor Name 04/23/2022 1 [place] Roverto Stephenson [id number] Roverto Stephenson 04/23/2022 2 WPS - FOR LIFE (MEDICARE SUPPLEMENT) Clif Stephenson [id number] Roverto Stephenson 10/15/2022 1 [place] Roverto Cifuenteshr [id number] Roverto Cuellar Duhr 10/15/2022 2 WPS - FOR LIFE (MEDICARE SUPPLEMENT) Clif Seema [id number] Roverto Cuellar Duhr 04/10/2023 1 [place] Roverto Cifuenteshr [id number] Roverto Cuellar Duhr 04/10/2023 2 [employer] - FOR LIFE (MEDICARE SUPPLEMENT) Clif Seema [id number] Roverto Cuellar Duhr 11/18/2023 1 [place] Roverto Cuellar Duhr [id number] Roverto Cuellar Duhr 11/18/2023 2 [employer] - FOR LIFE (MEDICARE SUPPLEMENT) Clif Seema [id number] Roverto Cuellar Duhr 06/08/2024 1 [place] Roverto Cifuenteshr [id number] Roverto Cuellar Duhr 06/08/2024 2 [employer] - FOR LIFE (MEDICARE SUPPLEMENT) Clif Seema [id number] Roverto Cuellar Seema Notes Date Note Type Note Provider Name and Address Organization Details Recorded Time 04/23/19 23 text/htm l COVID-19 Symptoms July 2019Reported bypatient.COVID-19 Signs and Symptomsfever resolved; shortness of breath resolved; muscle pain resolved; headache resolved; vomiting or diarrhea resolved; fatigue same; went to er for illness dx with covid symptoms started 03/20/22, she was dx with low potassium while there also Contacts and Exposureclose contact with a confirmed or suspected case of COVID-19 (03/22/22) Quality:productive cough;dry cough Onset/Timing:date of symptoms onset: (03/20/22) Context:allergies;asthma Associated Symptoms:yellow sputum(clear);fatigue;runny nose; fluid in ears feels like it; negative test since she has been out Suitability of residential settingpatient does not have caregiver at home; patient does have gloves and face masks available; patient does not have members of the household at increased risk of complications; patient does have resources to access food and other necessities; patient does have separate bedroom and bathroom for patient; patient is able to adhere to hand hygiene and cough etiquette practices Pt presents today for sinus drainage, cough, hoarseness, and follow up from ER on Mar 22 2022 due to COVID. Pt has history of asthma. Pt states they feel like they have been experiencing cough, sinus, and hoarseness ever since she has had covid. Pt also states they have been more fatigued, and is having trouble getting out of bed regularly. patient also needs 6 medication refills. She brought a sheet of medications that needed refilling. Amlodipine and Potassium supplements refills went from a 90 day supply when given in January to now 0 refills when she filled in March requiring a doctor authorization for more refills. Adin Choudhuryciro dav[place], [place] [facility] 04/23/2022 12:59:29 10/16/19 23 text/htm l Hypertension F/UReported bypatient.Associated Symptoms:no dizziness; no lightheadedness; no chest pain; no shortness of breath; no palpitations; no edema; no calf pain with exertion Lifestyle:regular exercise; exercises 7 times/week; exercises for 60 minutes/day; limiting/avoiding salt Medications:taking medications as directed; no side effects from medication; checks blood pressure at home, range: (108/66 pulse 73 this morning)Notes:home BP was 108/66- did not bring in her diary Went over medications with pt pt states that doesnt need any refills on todays visit. Rosuara Tim MD Attn: Accounting,[address] [place] [address], [phone], [facility] 10/15/2022 14:04:50 04/10/19 24 text/htm l Anxiety/DepressionReported bypatient.Quality:she reports she feels worked up when her son asks her to help him-- she had to do some things today-- and is better now Severity:denies suicidal ideations; able to maintain relationships; does not interfere with activities of daily living Context:no major life stressors Associated Symptoms:denies homicidal ideations; no significant weight gain; no significant weight loss; no visual/auditory hallucinations; no delusions; no shortness of breath; mood good; no anxiety; no crying spells; no panic; no isolation; sleeping well; appetite good; energy good; no apathy; maintaining functionalityHypertension F/UReported bypatient.Associated Symptoms:no dizziness; no lightheadedness; no chest pain; no shortness of breath; no palpitations; no calf pain with exertion;edema(knees and arms) Lifestyle:limiting/avoiding salt;not exercising regularly(not lately since her falls) Medications:taking medications as directed; no side effects from medicationNotes:Pt [facility] had pain of the rib/ knee and chest but that cleared up and now only in low back-- down right leg and at SI joint area. Notes that the persistent pain is of buttock from the dimple to the right leg. No B/B incontinence. SHe had pain with urination and noted some blood later-- and went to the ER after noting blood in urine.Pt states she's having nerve pain from that fall.She reports that she is performing at home PT and she would like to do stretches and PT at home rather than to see a PT in person at this time pt requested a order for a compression sleeve for her legs and arms Rosaura Tim MD Attn: Accounting,[address] [place], [address], [facility] 04/10/2023 16:47:37 11/18/19 24 text/htm l Hypertension F/UReported bypatient.Associated Symptoms:no dizziness; no lightheadedness; no chest pain; no shortness of breath; no palpitations;edema;calf pain with exertion(not calfs but in her ankles);confused or disoriented(confused since she had covid) Lifestyle:regular exercise; exercises 3 times/week; exercises for 15 minutes/day; limiting/avoiding salt Medications:taking medications as directed; no side effects from medication pt said that you wanted to talk about her kidneyspt has a cyst behind rt ear and buzzing in rt earpt said that she thinks she might have little cyst in both earspt wants to see if you know anything about the Estephanie Lux ketoshedwin reports seh just had the SCD delivered last night-- not yet tried itand 2 ER visits-- left leg pain and weakness and needs AQUATIC THERAPY for her left leg Rosaura Tim MD Attn: Accounting,[address] [place], [address], [facility] 11/18/2023 17:31:32 06/09/19 25 text/htm l Hypertension F/UReported bypatient.Associated Symptoms:no dizziness; no lightheadedness; no shortness of breath; no palpitations; no calf pain with exertion;chest pain(pt has been congested for about a month);edema(a little);confused or disoriented(pt said that every since she had covid she has been confused) Lifestyle:regular exercise; exercises 3 times/week; exercises for 60 minutes/day; limiting/avoiding salt Medications:taking medications as directed; no side effects from medication; checks blood pressure at home, range: (120/80-116/70's) pt needs her ipratropium bromide 21 for 90 days for gustatory rhintis-- this medication is working and rather than getting one month supply-- she would like a 90 days supply---She went to [facility] in [place] in Feb and told that she had THYROID eye disease-- she was referred to Anthony Sol MD for evaluation and management-- [facility] due to her EPIPEN expiring Rosaura Tim MD Attn: Accounting,[address] [place], [address], [facility] 06/08/2024 17:11:58 OBGyn Episode Ob Episode Information Episode Created Date Number of Fetuses Patient Bloodtype Patient rh Status Prepregnancy Weight lbs Domestic Partner Domestic Partner Phone Father Name Production Material Coordinator Status 11/18/19 24 1 CLOSED Fetus Data First Name Last Name Admitted to NICU Weight (g) Sex Living Outcome Pediatric Complications Fetus ID Race Codes Race Delivery Type M [id number] Christian Calculation Initial Christian Date Initial Exam Date Initial Exam Provider Initial Ultrasound Date Last Menstrual Period Date Ultra Sound Weeks Gestation 0 Eighteen To Twenty Week Christian Update Ultra Sound Date Fundal Height At Umbil Quickening Date Ultra Sound Latest Weeks Gestation Final Christian Confirmed By Final Christian Confirmed Date Final Christian Date Ultra Sound Latest Days Gestation 0 0 Menstrual History Last Menstrual Date Menses Monthly On Bcp Conception Prior Menses Frequency Hcg Plus Date Menarche Onset Age Delivery Information Delivery Date Delivery Type Labor Anesthesia Weeks Gestation Incision Type Labor Labor Length Hrs Delivered By Post Complications Tubal Sterilization Discharge Date Comments 9 Discharge Information Feeding Method Contraceptive Method Maternal HG B and HCT Levels Ob Episode Information Episode Created Date Number of Fetuses Patient Bloodtype Patient rh Status Prepregnancy Weight lbs Domestic Partner Domestic Partner Phone Father Name Production Material Coordinator Status 11/18/19 24 1 CLOSED Fetus Data First Name Last Name Admitted to NICU Weight (g) Sex Living Outcome Pediatric Complications Fetus ID Race Codes Race Delivery Type M [id number] Christian Calculation Initial Christian Date Initial Exam Date Initial Exam Provider Initial Ultrasound Date Last Menstrual Period Date Ultra Sound Weeks Gestation 0 Eighteen To Twenty Week Christian Update Ultra Sound Date Fundal Height At Umbil Quickening Date Ultra Sound Latest Weeks Gestation Final Christian Confirmed By Final Christian Confirmed Date Final Christian Date Ultra Sound Latest Days Gestation 0 0 Menstrual History Last Menstrual Date Menses Monthly On Bcp Conception Prior Menses Frequency Hcg Plus Date Menarche Onset Age Delivery Information Delivery Date Delivery Type Labor Anesthesia Weeks Gestation Incision Type Labor Labor Length Hrs Delivered By Post Complications Tubal Sterilization Discharge Date Comments 0 Discharge Information Feeding Method Contraceptive Method Maternal HG B and HCT Levels Ob Episode Information Episode Created Date Number of Fetuses Patient Bloodtype Patient rh Status Prepregnancy Weight lbs Domestic Partner Domestic Partner Phone Father Name Production Material Coordinator Status 11/18/19 24 1 CLOSED Fetus Data First Name Last Name Admitted to NICU Weight (g) Sex Living Outcome Pediatric Complications Fetus ID Race Codes Race Delivery Type F [id number] Christian Calculation Initial Chrisitan Date Initial Exam Date Initial Exam Provider Initial Ultrasound Date Last Menstrual Period Date Ultra Sound Weeks Gestation 0 Eighteen To Twenty Week Christian Update Ultra Sound Date Fundal Height At Umbil Quickening Date Ultra Sound Latest Weeks Gestation Final Christian Confirmed By Final Christian Confirmed Date Final Christian Date Ultra Sound Latest Days Gestation 0 0 Menstrual History Last Menstrual Date Menses Monthly On Bcp Conception Prior Menses Frequency Hcg Plus Date Menarche Onset Age Delivery Information Delivery Date Delivery Type Labor Anesthesia Weeks Gestation Incision Type Labor Labor Length Hrs Delivered By Post Complications Tubal Sterilization Discharge Date Comments 1 Discharge Information Feeding Method Contraceptive Method Maternal HG B and HCT Levels Ob Episode Information Episode Created Date Number of Fetuses Patient Bloodtype Patient rh Status Prepregnancy Weight lbs Domestic Partner Domestic Partner Phone Father Name Production Material Coordinator Status 11/18/19 24 1 CLOSED Fetus Data First Name Last Name Admitted to NICU Weight (g) Sex Living Outcome Pediatric Complications Fetus ID Race Codes Race Delivery Type M 10195 Christian Calculation Initial Christian Date Initial Exam Date Initial Exam Provider Initial Ultrasound Date Last Menstrual Period Date Ultra Sound Weeks Gestation 0 Eighteen To Twenty Week Christian Update Ultra Sound Date Fundal Height At Umbil Quickening Date Ultra Sound Latest Weeks Gestation Final Christian Confirmed By Final Christian Confirmed Date Final Christian Date Ultra Sound Latest Days Gestation 0 0 Menstrual History Last Menstrual Date Menses Monthly On Bcp Conception Prior Menses Frequency Hcg Plus Date Menarche Onset Age Delivery Information Delivery Date Delivery Type Labor Anesthesia Weeks Gestation Incision Type Labor Labor Length Hrs Delivered By Post Complications Tubal Sterilization Discharge Date Comments 8 Discharge Information Feeding Method Contraceptive Method Maternal HG B and HCT Levels
[2024-07-22] MEDS: dexAMETHasone SOD PHOS INJ 10 MG/ML 1 ML VIAL IM (15:31)
== END 2024-07-22 16:21 | disposition home or self-care (01) ==
PROVIDERS: Emergency Provider Nurse Practitioner; PCP Family Medicine
DX: R21 Rash and other nonspecific skin eruption (principal)
CPT/HCPCS: 96372; 99203; G0463; J1100